=== PATIENT | male | born 1975 | race Caucasian/White ===

== ENCOUNTER 2016-10-11 23:52 | Emergency (ER) | payer OTHER ==
[~2016-10-11] VITALS: Ht 175.3 cm; Wt 113.4 kg
[~2016-10-11 23:52] MED LIST: ADVIN50050 INH; ALBUAER2 INH; AZEL0.15 NAE; BUPR-79 PO; FLNIN NAE; IPRASOL34 INH; LANS30CA12 PO; NORT10CA2 PO; NRN600 PO; PROM25TA PO; SALI0.6510 NAE; TIZA2CAP PO
[2016-10-12] VITALS: Ht 175.3 cm; Wt 113.4 kg
[2016-10-12] MEDS ORDERED: SODIUM CHLORIDE 0.9% 1000ML 1,000 ML IV STA ×2 (00:03→00:22)
[2016-10-12] MEDS ORDERED: OPTIRAY 320 IV PRN (00:15)
[2016-10-12 00:47] LABS: BASO % 0.1 %; BASO ABS # 0.02 K/uL (0-0.2); COMPLETE YES; EOS % 0.3 %; HEMATOCRIT 33.3 % (42-52); IG% 0.3 %; LYMPH ABS # 2.09 K/uL (1.2-3.4); MEAN CELL VOLUME 87.6 fL (80-100); MEAN CORPUSCULAR HEMOGLOBIN 31.8 pg (25-34); MEAN CORPUSCULAR HGB CONC 36.3 g/dl (32-36); MEAN PLATELET VOLUME 10.4 fL (7.4-10.4); MONO % 5.8 %; NEUT % 82.5 %; PLATELET COUNT 415 K/uL (130-400); WHITE BLOOD COUNT 19.03 K/uL (4.8-10.8)
[2016-10-12 00:51] LABS: VEN BLD GAS O2 SATURATION < 60.0 %; VEN BLOOD GAS BASE EXCESS 1.3 mmol/L; VENOUS BLOOD GAS PCO2 54 mmHg (38.0-50.0); VENOUS BLOOD GAS PO2 25 mmHg
[2016-10-12 00:54] LABS: ISTAT CREATININE 1.9 mg/dl (0.6-1.3); ISTAT HEMOGLOBIN 12.2 g/dl (14.0-18.0); ISTAT IONIZED CALCIUM 1.17 mmol/l (1.12-1.32)
[2016-10-12 00:57] LABS: INR 1.1 (0.9-1.1); PARTIAL THROMBOPLASTIN RATIO 0.9; PROTHROMBIN TIME (PATIENT) 11.4 SECONDS (9.0-12.0)
[2016-10-12 01:14] LABS: ALT/SGPT 19 U/L (12-78); AST/SGOT 10 U/L (15-37); BLOOD UREA NITROGEN 19 mg/dl (7-18); BUN/CREATININE RATIO 9.3 (10-20); CALCIUM 8.9 mg/dl (8.5-10.1); CARBON DIOXIDE 27 mmol/L (21-32); CHLORIDE 105 mmol/L (98-107); GLUCOSE 156 mg/dl (70-99); MAGNESIUM 2.5 mg/dl (1.8-2.4); POTASSIUM 3.9 mmol/L (3.5-5.1); SODIUM 144 mmol/L (136-145)
[2016-10-12] MEDS ORDERED: VANCOMYCIN INJ 2,000 MG in SODIUM CHLORIDE 0.9% 500ML 500 ML IV STA (01:15)
[2016-10-12 01:17] LABS: ALB/GLOB RATIO 1.3 (0.9-2); ALKALINE PHOSPHATASE 61 U/L (45-117); CKMB/CK RATIO 2.7 (0-3.0); PHOSPHORUS 2.9 mg/dl (2.5-4.9)
[2016-10-12] MEDS ORDERED: AZTREONAM IV 1,000 MG in DEXTROSE 5% 100ML 100 ML IV ONE (01:30)
[2016-10-12 01:35] LABS: URINE APPEARANCE CLOUDY (CLEAR); URINE BILIRUBIN NEG (NEG); URINE COLOR YELLOW; URINE EPITHELIAL CELL AUTO >30 /lpf (0-5); URINE NITRITE NEG (NEG); URINE SPECIFIC GRAVITY 1.018 (1.000-1.030); UROBILINOGEN NEG (NEG); ZZUR CULT IF INDIC CLEAN CATCH YES
--- NOTE | 2016-10-12 01:39 | EMERGENCY ROOM VISIT NOTE ---
ED Visit Note First contact with patient: 00:35 This Patient was discussed with the physician Shuttle Threader, Magnus De La Torre PA-C. The pertinent historical and physical exam findings were confirmed. I agree with the studies ordered and with the interpretations of these studies. I agree with the disposition and care plan. Femoral Central Venous Catheter Indication: Trauma and hypotension Catheter Type: Triple lumen Location: Right femoral vein Verbal consent was obtained after the risks and benefits were explained, including but not limited to intra-abdominal injury, vessel injury, bleeding, scarring, infection, pain, and bone/joint/nerve damage. At this time, the risks of the procedure are less than the risks of NOT performing the procedure. A time out was taken and the correct patient and site identified. The patient was placed in the supine position and the skin was prepped in the standard fashion with chlorhexidine and full sterile drapes applied. The proper landmarks were identified with ultrasound, anesthetized with 1% lidocaine without epinephrine, and the needle was inserted through the skin in the standard fashion. The needle was carefully advanced into blood vessel lumen with ultrasound guidance. The guidewire was placed uneventfully. The vessel is dilated and the catheter was placed. It was sutured into position. There was good blood return from all ports. The patient tolerated the procedure well and there were no complications. After I reviewed the CAT scan of the abdomen and pelvis are appears to be free fluid with heterogenicity around the spleen. For this reason I discussed his case with [facility] trauma [facility]ona. I discussed with Dr. Moseley he has agreed to accept the patient in transfer for appropriate trauma evaluation..
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
[2016-10-12 01:54] LABS: MANUAL MICROSCOPIC REQUIRED? NO; REVIEW REQ? YES
[2016-10-12 02:10] VITALS: BP 98/70; PULSE 85; PULSE 86; TEMP 36.5; O2SAT 100
[2016-10-12 02:15] VITALS: BP 110/67; PULSE 86; O2SAT 99
[2016-10-12 02:20] VITALS: BP 110/72; PULSE 78; O2SAT 99
[2016-10-12 02:27] LABS: BENZODIAZEPINE, URINE NEG (NEG); COCAINE,URINE NEG (NEG); PHENCYCLIDINE, URINE NEG (NEG)
[2016-10-12 02:45] VITALS: BP 111/69; PULSE 84; TEMP 36.5; O2SAT 100
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
[2016-10-12] MEDS ORDERED: TRANEXAMIC ACID INJ 1,000 MG in SODIUM CHLORIDE 0.9% 100ML 100 ML IV ONE (06:00)
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
[2016-10-15 11:31] LABS: COD UR NEGATIVE NG/ML (CUTOFF=50); HYDROCOD UR 163 NG/ML (CUTOFF=50); HYDROMOR UR NEGATIVE NG/ML (CUTOFF=50); MORPHINE UR NEGATIVE NG/ML (CUTOFF=50); NORHYDROCODONE CONF UR 417 NG/ML (CUTOFF=50); OXYMORPH UR NEGATIVE NG/ML (CUTOFF=50)
== END 2016-10-12 02:45 | disposition short-term general hospital (02) ==
LOC: EDBD 23:52 → C.EDC 23:53 → C.EDB 10-12 02:45
DX: S36.899A Unspecified injury of other intra-abdominal organs, initial encounter (principal); I95.9 Hypotension, unspecified; V89.2XXA Person injured in unspecified motor-vehicle accident, traffic, initial encounter; J45.909 Unspecified asthma, uncomplicated; K73.8 Other chronic hepatitis, not elsewhere classified; G89.29 Other chronic pain; K21.9 Gastro-esophageal reflux disease without esophagitis; F17.200 Nicotine dependence, unspecified, uncomplicated

== ENCOUNTER 2017-05-07 19:12 | Emergency (ER) | payer OTHER ==
[~2017-05-07] VITALS: Ht 175.3 cm; Wt 100.6 kg
[2017-05-07 19:15] VITALS: TEMP 36.7; Ht 175.3 cm; Wt 100.6 kg
[2017-05-07] MEDS ORDERED: NALOXONE HCL 0.4 MG/1 ML VIAL/CARP IV STA (19:50)
[2017-05-07] MEDS ORDERED: SODIUM CHLORIDE 0.9% 1000ML 1,000 ML IV STA (19:50)
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
[2017-05-07 20:31] LABS: ALT/SGPT 32 U/L (12-78); BLOOD UREA NITROGEN 18 mg/dl (7-18); BUN/CREATININE RATIO 20.9 (10-20); CALCIUM 8.8 mg/dl (8.5-10.1); CARBON DIOXIDE 28 mmol/L (21-32); CHLORIDE 104 mmol/L (98-107); CREATININE 0.85 mg/dl (0.60-1.40); GLUCOSE 93 mg/dl (70-99); MAGNESIUM 2.1 mg/dl (1.8-2.4); POTASSIUM 3.9 mmol/L (3.5-5.1); SODIUM 140 mmol/L (136-145)
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
[2017-05-07 20:34] LABS: ALKALINE PHOSPHATASE 80 U/L (45-117); AST/SGOT 36 U/L (15-37)
[2017-05-07 20:56] LABS: BENZODIAZEPINE, URINE NEG (NEG); COCAINE,URINE POS (NEG); PHENCYCLIDINE, URINE NEG (NEG)
[2017-05-07 21:17] LABS: URINE APPEARANCE CLEAR (CLEAR); URINE BILIRUBIN NEG (NEG); URINE COLOR YELLOW; URINE NITRITE NEG (NEG); URINE PH 5.5 (4.5-7.5); URINE SPECIFIC GRAVITY 1.014 (1.000-1.030); UROBILINOGEN NEG (NEG); ZZURINE CULT IF INDIC CATH NO
[2017-05-07 21:19] LABS: MANUAL MICROSCOPIC REQUIRED? NO; REVIEW REQ? NO
[2017-05-07 21:34] LABS: BASO % 0.2 %; BASO ABS # 0.03 K/uL (0-0.2); COMPLETE YES; EOS % 1.6 %; HEMATOCRIT 33.2 % (42-52); IG% 0.3 %; LYMPH % 16.4 %; LYMPH ABS # 2.15 K/uL (1.2-3.4); MEAN CORPUSCULAR HEMOGLOBIN 28.8 pg (25-34); MEAN CORPUSCULAR HGB CONC 31.6 g/dl (32-36); MONO % 8.9 %; NEUT % 72.6 %; RED BLOOD COUNT 3.65 M/uL (4.7-6.1); WHITE BLOOD COUNT 13.09 K/uL (4.8-10.8)
[2017-05-08 00:50] VITALS: BP 141/92; PULSE 99; O2SAT 94
[2017-05-13 11:04] LABS: COCAINE, URINE 8360 NG/ML (CUTOFF=100)
== END 2017-05-08 00:50 | disposition home or self-care (01) ==
LOC: EDBD 19:12 → C.EDB 19:14
DX: T40.1X1A Poisoning by heroin, accidental (unintentional), initial encounter (principal); F19.99 Other psychoactive substance use, unspecified with unspecified psychoactive substance-induced disorder; J45.909 Unspecified asthma, uncomplicated; K74.60 Unspecified cirrhosis of liver; M79.7 Fibromyalgia; Q85.02 Neurofibromatosis, type 2; D86.0 Sarcoidosis of lung; M62.82 Rhabdomyolysis; F17.200 Nicotine dependence, unspecified, uncomplicated; F11.20 Opioid dependence, uncomplicated

== ENCOUNTER 2020-05-21 13:37 | Observation (INO) ==
[2020-05-21] MEDS ORDERED: MoRPHine SULFATE 4 MG/ML 1 ML CARP\\VIAL IV PRN (14:04)
[2020-05-21] MEDS ORDERED: ONDANSETRON INJ 2 MG/ML 2 ML VIAL IV STA (14:04)
--- NOTE | 2020-05-21 14:07 | Emergency Department Note ---
Impression & Plan Left-sided chest pain, SOB (shortness of breath), Left rib fracture, Fall ED Provider Note NAME: FLORENCIO LAUREN AGE: 45 SEX: M : 1975 ARRIVES VIA: Walk-In INFORMANT: [Patient] ED PROVIDER(S): [Dante Ordonez MD] CHIEF COMPLAINT: The patient is a 45-year-old male who states that 1 week ago, he tripped over a child's toy and fell onto his chest. He is not sure how but, something injured the left chest. He thinks he may have fallen onto something. Patient has had pain in the left chest ever since. The pain is a 6 or 7 out of 10. The pain is present with deep breathing or moving. He feels short of breath because of the pain. The pain is sharp in nature and does radiate a bit to the left shoulder. There is no headache. There was no loss of consciousness. He did not injure his neck, back, abdomen or extremities. The patient went to [facility] today and was referred to the ED because of this injury. HISTORY OF PRESENT ILLNESS: REVIEW OF SYSTEMS: See HPI for pertinent positives and negatives. A total of ten systems were reviewed and were otherwise negative. PMHx/PSHx: See Below SOCIAL HISTORY: See Below. PHYSICAL EXAM: GENERAL: Patient is in no acute distress. HEENT: No acute trauma, normocephalic atraumatic, mucous membranes moist, no nasal congestion, no scleral icterus. NECK: No stridor, no adenopathy, no meningismus, trachea is midline. LUNGS: Clear to auscultation bilaterally, no wheeze, no rhonchi, breath sounds equal. HEART: Mildly tachycardic, regular rhythm, no murmurs. Chest: Tender to the left superior chest wall, no contusion. Pain worsens with movement and breathing. ABDOMEN: Soft, nontender, bowel sounds positive, he does have a right-sided ventral abdominal wall hernia which is nontender, no peritonitis. EXTREMITIES: No cyanosis or edema, full range of motion of all the joints without pain or difficulty, no signs for acute trauma. NEUROLOGIC: Oriented x 3, no acute motor or sensory deficits, no focal weakness. SKIN: No rash, no jaundice, no diaphoresis. DIFFERENTIAL DIAGNOSIS: Fracture, dislocation, contusion, intra-abdominal, pneumothorax, intrathoracic, intracranial, neurologic, compartment syndrome, rhabdomyolysis, as well as other pathologies. EMERGENCY DEPARTMENT COURSE/PROCEDURES: ECG: Indication was chest pain. The ECG shows a normal sinus rhythm with a rate of 99. There is no ST elevation, no PVCs. The QTc is 433. Continuous Cardiac Monitoring: An order was placed for continuous cardiac monitoring. The monitor shows a rate of 95 with normal sinus rhythm. MEDICAL DECISION MAKING: There is no leukocytosis or concerning anemia. Platelet count was slightly high at 602. No kidney failure. ECG showed a sinus rhythm, no acute ischemia. Cardiac enzyme testing x1 is not consistent with acute cardiac injury. Chest CT shows 5 rib fractures on the left. There was no pneumothorax or pulmonary contusion identified. On my exam, only the left chest wall seemed to be injured. I found no evidence for injury to the abdomen, neck, head, extremities. The patient received IV Zofran, IV morphine. He is still having pain. The patient has 5 rib fractures. These are nondisplaced and there is no pulmonary injury. Given his discomfort, given the number of fractures, I do think a hospital stay for pain control is warranted. I spoke to the patient and case management. The on-call hospitalist was consulted. Past Med/Surg History Medical History Neurofibromatosis, type 2 (Unknown) Superficial vein thrombosis Social History Smoking Status: Current some day smoker Do You Dip or Chew Tobacco: No; Hx Alcohol Use: No Hx Substance Use: No Preferred Language: German Communication Ability: Effective Beliefs That Will Affect Care: None Current Living Situation: Parent Current Living Situation Comment: lives at home with parents Feels Safe at Home: Yes Safety Concerns: Feels Safe At This Time Assistive Devices: None Allergies Allergies Allergy/AdvReac Type Severity Reaction Status Date / Time diltiazem Allergy Severe HIVES Verified 05/21/20 16:18 Penicillins Allergy Mild . Verified 05/21/20 16:18 carvedilol AdvReac Unknown TOLD NOT Verified 05/21/20 16:18 TO TAKE Home Meds Home Medications Medication Instructions Recorded Confirmed aspirin 81 mg PO DAILY 03/20/20 05/21/20 ibuprofen 600 mg PO Q6H PRN 03/20/20 05/21/20 lisinopril 30 mg PO DAILY 03/20/20 05/21/20 nortriptyline 50 mg PO BID 03/20/20 05/21/20 clonidine HCl 0.1 mg PO BID 05/21/20 05/21/20 furosemide 20 mg PO DAILY PRN 05/21/20 05/21/20 gabapentin See Rx Instructions .ROUTE .COMPLEX 05/21/20 05/21/20 lansoprazole 30 mg PO QAM 05/21/20 05/21/20 sumatriptan succinate 50 mg PO DIRECTED PRN 05/21/20 05/21/20 topiramate [Topamax] 50 mg PO BID 05/21/20 05/21/20 Results & Data (ED) Vital Signs Vital Signs - 24 hr 05/21/20 13:42 05/21/20 14:26 05/21/20 14:29 Temperature 36.8 C Temperature Source Oral Pulse Rate 116 H 97 H 95 H Pulse Rate from SpO2 Sensor 96 H 95 H Respiratory Rate 24 19 17 Respiratory Effort / Characteristics Short of Breath Respiratory Depth Normal Blood Pressure 128/86 130/74 Blood Pressure Mean 100 84 Pulse Oximetry 98 99 100 Oxygen Delivery Method Room Air Sepsis Recent Fever Within 48 Hours No Sepsis New/Unexplained Change in Mental Status N/A Sepsis Action Taken by Nursing No Action Required 05/21/20 14:30 05/21/20 14:31 05/21/20 15:00 Temperature Temperature Source Pulse Rate 95 H 104 H 95 H Pulse Rate from SpO2 Sensor 97 H Respiratory Rate 16 16 15 Respiratory Effort / Characteristics Respiratory Depth Blood Pressure 125/88 Blood Pressure Mean 99 Pulse Oximetry 96 Oxygen Delivery Method Sepsis Recent Fever Within 48 Hours Sepsis New/Unexplained Change in Mental Status Sepsis Action Taken by Nursing 05/21/20 15:08 05/21/20 15:30 05/21/20 15:31 Temperature Temperature Source Pulse Rate 95 H 87 89 Pulse Rate from SpO2 Sensor 96 H 85 90 Respiratory Rate 19 15 13 Respiratory Effort / Characteristics Respiratory Depth Blood Pressure 120/79 108/77 Blood Pressure Mean 88 82 Pulse Oximetry 98 96 95 Oxygen Delivery Method Sepsis Recent Fever Within 48 Hours Sepsis New/Unexplained Change in Mental Status Sepsis Action Taken by Nursing 05/21/20 16:00 05/21/20 16:01 05/21/20 16:38 Temperature Temperature Source Pulse Rate 90 86 93 H Pulse Rate from SpO2 Sensor 90 86 93 H Respiratory Rate 14 18 17 Respiratory Effort / Characteristics Respiratory Depth Blood Pressure 120/67 127/85 Blood Pressure Mean 76 103 Pulse Oximetry 95 95 98 Oxygen Delivery Method Sepsis Recent Fever Within 48 Hours Sepsis New/Unexplained Change in Mental Status Sepsis Action Taken by Nursing 05/21/20 17:00 05/21/20 17:01 05/21/20 17:30 Temperature Temperature Source Pulse Rate 89 90 90 Pulse Rate from SpO2 Sensor 88 89 90 Respiratory Rate 14 14 13 Respiratory Effort / Characteristics Respiratory Depth Blood Pressure 108/75 121/85 Blood Pressure Mean 85 97 Pulse Oximetry 98 98 97 Oxygen Delivery Method Sepsis Recent Fever Within 48 Hours Sepsis New/Unexplained Change in Mental Status Sepsis Action Taken by Nursing 05/21/20 17:31 Temperature Temperature Source Pulse Rate 91 H Pulse Rate from SpO2 Sensor 91 H Respiratory Rate 14 Respiratory Effort / Characteristics Respiratory Depth Blood Pressure Blood Pressure Mean Pulse Oximetry 97 Oxygen Delivery Method Sepsis Recent Fever Within 48 Hours Sepsis New/Unexplained Change in Mental Status Sepsis Action Taken by Jail Medications Current Medication List: was personally reviewed by me Laboratory Data Attestation: I reviewed the patient's lab results. Result diagrams: 05/22/20 06:36 05/22/20 06:36 Lab Results 05/21/20 05/21/20 Range/Units 14:45 14:45 WBC 10.08 (4.8-10.8) K/uL RBC 4.75 (4.7-6.1) M/uL Hgb 15.3 (14.0-18.0) g/dL Hct 45.7 (42-52) % MCV 96.2 (80-100) fL MCH 32.2 (25-34) pg MCHC 33.5 (32-36) g/dL RDW Std Deviation 45.9 (36.4-46.3) fL RDW Coeff of Nicolas 13.1 (11.5-14.5) % Plt Count 602 H (130-400) K/uL MPV 9.8 (7.4-10.4) fL Sodium 139 (136-145) mmol/L Potassium 4.6 (3.5-5.1) mmol/L Chloride 106 (98-107) mmol/L Carbon Dioxide 30 (21-32) mmol/L Anion Gap 3.0 (3-11) BUN 22 H (7-18) mg/dl Creatinine 1.13 (0.6-1.4) mg/dl Est Cr Clr Drug Dosing 101.8 ml/min Est GFR ( Amer) 91.8 Est GFR (Non-Af Amer) 79.2 BUN/Creatinine Ratio 19.1 (10-20) Glucose 88 (70-99) mg/dl Calcium 9.4 (8.5-10.1) mg/dl Troponin I < 0.015 (0-0.045) ng/ml Administered Medications Acetaminophen (Acetaminophen 325 Mg Tab) 325 mg PO NOW PRN PRN Reason: Pain or Fever Stop: 06/20/20 17:54 Last Admin: 05/22/20 19:52 Dose: 325 mg Documented by: [id number] Admin: 05/22/20 12:54 Dose: 325 mg Documented by: [id number] Admin: 05/22/20 08:29 Dose: 325 mg Documented by: [id number] Clonidine HCl (Clonidine Hcl 0.1 Mg Tab) 0.1 mg PO BID SHIRLEY Stop: 06/20/20 20:59 Last Admin: 05/22/20 19:53 Dose: 0.1 mg Documented by: [id number] Admin: 05/22/20 08:32 Dose: 0.1 mg Documented by: [id number] Admin: 05/21/20 20:55 Dose: 0.1 mg Documented by: [id number] Docusate Sodium (Docusate Sodium 100 Mg Cap) 100 mg PO BID SHIRLEY Stop: 06/20/20 20:59 Last Admin: 05/22/20 19:53 Dose: 100 mg Documented by: [id number] Admin: 05/22/20 08:32 Dose: 100 mg Documented by: [id number] Admin: 05/21/20 20:55 Dose: 100 mg Documented by: [id number] Enoxaparin Sodium (Enoxaparin Inj 120 Mg/0.8 Ml Syr) 111 mg SQ Q12H SHIRLEY Stop: 06/20/20 19:59 Last Admin: 05/22/20 19:53 Dose: 111 mg Documented by: [id number] Admin: 05/22/20 08:33 Dose: 111 mg Documented by: [id number] Admin: 05/21/20 20:54 Dose: 111 mg Documented by: [id number] Gabapentin (Gabapentin 600 Mg Tab) 1,200 mg PO HS SHIRELY Stop: 06/20/20 20:59 Last Admin: 05/22/20 19:55 Dose: 1,200 mg Documented by: [id number] Admin: 05/21/20 20:56 Dose: 1,200 mg Documented by: [id number] Gabapentin (Gabapentin 300 Mg Cap) 900 mg PO DAILY@0900,1400 [facility] Stop: 06/21/20 08:59 Last Admin: 05/22/20 12:55 Dose: 900 mg Documented by: [id number] Admin: 05/22/20 08:30 Dose: 900 mg Documented by: [id number] Lisinopril (Lisinopril 10 Mg Tab) 30 mg PO DAILY [facility] Stop: 06/21/20 08:59 Last Admin: 05/22/20 08:31 Dose: 30 mg Documented by: [id number] Nortriptyline HCl (Nortriptyline Hcl 25 Mg Cap) 50 mg PO BID [facility] Stop: 06/20/20 20:59 Last Admin: 05/22/20 19:54 Dose: 50 mg Documented by: [id number] Admin: 05/22/20 08:32 Dose: 50 mg Documented by: [id number] Admin: 05/21/20 20:56 Dose: 50 mg Documented by: [id number] Oxycodone HCl (Oxycodone Hcl Ir 5 Mg Tab (Immediate Release)) 5 mg PO Q6H PRN PRN Reason: Moderate Pain Stop: 06/04/20 17:54 Last Admin: 05/22/20 19:52 Dose: 5 mg Documented by: [id number] Admin: 05/22/20 11:32 Dose: 5 mg Documented by: [id number] Admin: 05/22/20 04:59 Dose: 5 mg Documented by: [id number] Admin: 05/21/20 20:57 Dose: 5 mg Documented by: [id number] Pantoprazole Sodium (Pantoprazole 40 Mg Tab) 40 mg PO DAILY [facility] Stop: 06/21/20 08:59 Last Admin: 05/22/20 08:30 Dose: 40 mg Documented by: [id number] Sennosides (Senna 8.6 Mg Tab) 8.6 mg PO QAM [facility] Stop: 06/20/20 18:14 Last Admin: 05/22/20 08:33 Dose: 8.6 mg Documented by: [id number] Admin: 05/21/20 20:54 Dose: 8.6 mg Documented by: [id number] Topiramate (Topiramate 50 Mg Tab) 50 mg PO BID SHIRLEY Stop: 06/20/20 20:59 Last Admin: 05/22/20 19:54 Dose: 50 mg Documented by: [id number] Admin: 05/22/20 08:30 Dose: 50 mg Documented by: [id number] Admin: 05/21/20 20:57 Dose: 50 mg Documented by: [id number] Discontinued Medications Ioversol (Ioversol 100ml) 94 ml IV ONCE ONE Stop: 05/21/20 16:40 Last Admin: 05/21/20 16:39 Dose: 94 ml Documented by: [id number] Morphine Sulfate (Morphine Sulfate 4 Mg/Ml 1 Ml Carp\Vial) 4 mg IV Q20M PRN PRN Reason: Pain Stop: 06/04/20 14:03 Last Admin: 05/21/20 15:08 Dose: 4 mg Documented by: [id number] Ondansetron HCl (Ondansetron Inj 2 Mg/Ml 2 Ml Vial) 4 mg IV NOW STA Stop: 05/21/20 14:05 Last Admin: 05/21/20 15:08 Dose: 4 mg Documented by: [id number] Imaging Data Radiologist's Impression: CT OF THE CHEST WITH IV CONTRAST CLINICAL HISTORY: Left-sided chest pain status post trauma COMPARISON STUDY: September 2016 TECHNIQUE: Following the IV administration of 94 mL of Optiray-320, CT of the thorax was performed from the thoracic inlet to the lung bases. Images are reviewed in the axial, sagittal, and coronal planes. IV contrast was administered without complication. A dose lowering technique was utilized adhering to the principles of ALARA. CT DOSE: 907.83 mGy.cm FINDINGS: Thyroid: Imaged portions of the thyroid gland are normal in appearance. Thoracic aorta: The thoracic aorta is normal in course and caliber, noting standard 3-vessel arch anatomy. No aneurysm or dissection is seen. Pulmonary vasculature: The pulmonary trunk is normal in caliber. There are no central filling defects identified to suggest pulmonary embolus. Note that this examination was not protocoled for the evaluation of pulmonary emboli. HEART: The heart is normal in size and configuration, without pericardial eff usion. Lungs and pleural spaces: There are trace bilateral pleural effusions. There are bilateral dependent airspace opacities, likely atelectatic. Mediastinum: There is no evidence of pathologic mediastinal lymphadenopathy. There is no evidence of mediastinal hematoma. Sadie: There is no evidence of pathologic hilar adenopathy. Axilla: There is no evidence of pathologic axillary lymphadenopathy. 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 There is possible mild hepatomegaly. Skeletal structures: There are acute nondisplaced fractures of the left second through sixth ribs anteriorly. There are old left posterior rib fractures. There is minor loss in height of several midthoracic vertebral bodies. This is felt to be chronic. IMPRESSION: 1. Acute nondisplaced fractures of the left second through sixth ribs anteriorly. 2. Trace bilateral pleural effusions with bibasilar opacities likely atelectatic 3. No evidence of pneumothorax. No evidence of pulmonary contusion 4. Surgically absent spleen Blood Pressure Blood Pressure Findings: Normal blood pressure Head Trauma GCS Score: 15 Discharge Plan Visit Data Chief Complaint: Chest/Rib Injury Stated Complaint: FALL HURT CHEST AND LUNGS, SENT BY DR BOYD Provider: Dante Ordonez Discharge Problem: Left-sided chest pain, SOB (shortness of breath), Left rib fracture, Fall Patient Disposition: Admitted As Inpatient Condition: Good Discharge Instructions Interventions: ED Discharge Assessment Last Done: 05/21/20 18:27 Discharge Problem: Left rib fracture Qualifiers: Encounter type: initial encounter Rib fracture type: multiple ribs Fracture type: closed Qualified Code(s): S22.42XA - Multiple fractures of ribs, left side, initial encounter for closed fracture Fall Qualifiers: Encounter type: initial encounter Qualified Code(s): W19.XXXA - Unspecified fall, initial encounter
[2020-05-21 14:55] LABS: Hematocrit (blood only) 45.7 % (42-52); Hemoglobin 15.3 g/dL (14.0-18.0); Mean Corpuscular Hemoglobin 32.2 pg (25-34); Mean Corpuscular Hgb Conc 33.5 g/dL (32-36); Mean Corpuscular Volume 96.2 fL (80-100); Mean Platelet Volume 9.8 fL (7.4-10.4); Platelet Count 602 K/uL (130-400); RDW Coefficient of Variation 13.1 % (11.5-14.5); RDW Standard Deviation 45.9 fL (36.4-46.3); Red Blood Count 4.75 M/uL (4.7-6.1); White Blood Count 10.08 K/uL (4.8-10.8)
[2020-05-21 15:11] LABS: BUN Creatinine Ratio 19.1 (10-20); Blood Urea Nitrogen 22 mg/dl (7-18); Calcium 9.4 mg/dl (8.5-10.1); Carbon Dioxide 30 mmol/L (21-32); Chloride 106 mmol/L (98-107); Creatinine Clr Calc Pharmacy 101.8 ml/min; Est GFR (African American) 91.8; Est GFR (Non-African American) 79.2; Glucose 88 mg/dl (70-99); Potassium 4.6 mmol/L (3.5-5.1); Sodium 139 mmol/L (136-145)
[2020-05-21 15:16] LABS: Troponin I < 0.015 ng/ml (0-0.045)
[2020-05-21] MEDS ORDERED: IOVERSOL 100ml IV ONE (16:39)
--- NOTE | 2020-05-21 16:48 | CT Scan Report ---
CT OF THE CHEST WITH IV CONTRAST CLINICAL HISTORY: Left-sided chest pain status post trauma COMPARISON STUDY: September 2016 TECHNIQUE: Following the IV administration of 94 mL of Optiray-320, CT of the thorax was performed f rom the thoracic inlet to the lung bases. Images are reviewed in the axial, sagittal, and coronal danny fletcher. IV contrast was administered without complication. A dose lowering technique was utilized adher ing to the principles of ALARA. CT DOSE: 907.83 mGy.cm FINDINGS: Thyroid: Imaged portions of the thyroid gland are normal in appearance. Thoracic aorta: The thoracic aorta is normal in course and caliber, noting standard 3-vessel arch bryant nohemi. No aneurysm or dissection is seen. Pulmonary vasculature: The pulmonary trunk is normal in caliber. There are no central filling defects identified to suggest pulmonary embolus. Note that this examination was not protocoled for the evalu ation of pulmonary emboli. HEART: The heart is normal in size and configuration, without pericardial effusion. Lungs and pleural spaces: There are trace bilateral pleural effusions. There are bilateral dependent airspace opacities, likely atelectatic. Mediastinum: There is no evidence of pathologic mediastinal lymphadenopathy. There is no evidence of mediastinal hematoma. Sadie: There is no evidence of pathologic hilar adenopathy. Axilla: There is no evidence of pathologic axillary lymphadenopathy. 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 There is possible mild hepato megaly. Skeletal structures: There are acute nondisplaced fractures of the left second through sixth ribs ant eriorly. There are old left posterior rib fractures. There is minor loss in height of several midthor acic vertebral bodies. This is felt to be chronic. IMPRESSION: 1. Acute nondisplaced fractures of the left second through sixth ribs anteriorly. 2. Trace bilateral pleural effusions with bibasilar opacities likely atelectatic 3. No evidence of pneumothorax. No evidence of pulmonary contusion 4. Surgically absent spleen ACT 112: Negative or not required by law. Electronically signed by: Alexander Conde M.D. 05/21/2020 4:46 PM
--- NOTE | 2020-05-21 17:11 | Electrocardiogram Report ---
Test Reason : Blood Pressure : / mmHG Vent. Rate : 099 BPM Atrial Rate : 099 BPM P-R Int : 166 ms QRS Dur : 086 ms QT Int : 338 ms P-R-T Axes : 047 -01 027 degrees QTc Int : 433 ms Normal sinus rhythm Normal ECG When compared with ECG of 20-MAR-2020 18:49, No significant change was found Confirmed by Conrad Noriega ([id number]) on 05/21/2020 5:11:10 PM Referred By: Amauri Fox Confirmed By:Jose L Noriega
[2020-05-21] MEDS ORDERED: HYDROmorphone INJ 0.5 MG/0.5 ML SYR IV PRN (17:55)
--- NOTE | 2020-05-21 17:55 | History & Physical Report ---
Date of Service May 21, 2020 Assessment & Plan (1) Ribs, multiple fractures: -This is a 45 year old male who 1 week ago slipped on a toy object and fell on his left side which landed on another toy. Since that time patient, has been having left upper rib pain but he reports that initial CXR evaluation did not show anything remarkable. Patient has been taking over the counter Ibuprofen pain medication with minimal relief. Because he had upcoming surgical evaluation with general surgery Dr. Jackson for repair of abdominal hernia, patient was concerned as to why patricia mccracken continued to have left sided pain and he reports that his primary care doctor told him to come to the hospital for further evaluation. -In the ED, patient was found to have on CT chest scan : Acute nondisplaced fractures of the left second through sixth ribs anteriorly. No evidence of pneumothorax. No evidence of pulmonary contusion -patient saturating well on room air -prn analgesics, incentive spirometer, supplementary oxygen as needed, prn analgesics or acetaminophen, oxycodone, diluadid based on degree of pain severity (2) History of DVT of lower extremity: -03/23/2020 ultrasound of left leg with "Superficial thrombus within the left greater saphenous vein that extends from the level of the mid thigh to the popliteal fossa (thrombus extends for at least 10 cm in length)." patient reports he has since that time was on Xarelto for 45 days and recently completed the Xarelto several days ago prior to presenting to the ED on 05/21/2020 -Social history of being in group home in the past as per PCP Dr. Amauri Fox's recent outpatient notes in 04/19/2020 which also commented that previously seen in 12/31/2015. Dr. Fox's note acknowledge that patient was discharged from ED in March 2020 in regards for the DVT but did not comment on the length of time that patient should be on systemic anticoagulation in total -Ultrasound on 05/21/2020 shows "No sonographic evidence of right or left lower extremity deep venous thrombosis. Long segment superficial venous thrombosis of the left greater saphenous vein redemonstrated." -given the length of the clot, it would appear that patient may need more than 45 days of systemic anticoagulation. Will at this time give Lovenox 1 mg/kg q12 hours. Hospitalist team will need to re-address this issue whether patient should continue oral anticoagulants nursing home (3) Neurofibromatosis, type 2: -as confirmed by outpatient medical records -with history of neck surgeries in the past -PT/OT evaluations (4) Hypertension: -continue lisinopril 30 mg daily. 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 Jackson with general surgery as outpatient Full Code My colleague Dr. Espinoza will be following the patient as hospitalist starting on 05/22/2020 History of Present Illness -This is a 45 year old male who 1 week ago slipped on a toy object and fell on his left side which landed on another toy. Since that time patient, has been having left upper rib pain but he reports that initial CXR evaluation did not show anything remarkable. Patient has been taking over the counter Ibuprofen pain medication with minimal relief. Because he had upcoming surgical evaluation with general surgery Dr. Jackson for repair of abdominal hernia, patient was concerned as to why h kaykay continued to have left sided pain and he reports that his primary care doctor told him to come to the hospital for further evaluation. -In the ED, patient was found to have on CT chest scan : Acute nondisplaced fractures of the left second through sixth ribs anteriorly. No evidence of pneumothorax. No evidence of pulmonary contusion -patient saturating well on room air -03/23/2020 ultrasound of left leg with "Superficial thrombus within the left greater saphenous vein that extends from the level of the mid thigh to the popliteal fossa (thrombus extends for at least 10 cm in length)." patient reports he has since that time was on Xarelto for 45 days and recently completed the Xarelto several days ago prior to presenting to the ED on 05/21/2020 -Social history of being in group home in the past as per PCP Dr. Amauri Fox's recent outpatient notes in 04/19/2020 which also commented that previously seen in 12/31/2015. Dr. Fox's note acknowledge that patient was discharged from ED in March 2020 in regards for the DVT but did not comment on the length of time that patient should be on systemic anticoagulation in total -Ultrasound on 05/21/2020 shows "No sonographic evidence of right or left lower extremity deep venous thrombosis. Long segment superficial venous thrombosis of the left greater saphenous vein redemonstrated." On review of systems, patient denies acute headache, dizziness, lightheadedness, shortness of breath, chest pain, nausea, vomiting. 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 and history of neck surgeries in the past but denies problems with ambulation Family History of Diabetes mellitus Allergies: Patient reports hives to penicillin diltiazem, carvedilol Primary Care Provider: Amauri Fox MD Allergies Allergy/AdvReac Type Severity Reaction Status Date / Time diltiazem Allergy Severe HIVES Verified 05/21/20 16:18 Penicillins Allergy Mild . Verified 05/21/20 16:18 carvedilol AdvReac Unknown TOLD NOT Verified 05/21/20 16:18 TO TAKE Home Medications Home Medications Medication Instructions Recorded Confirmed Type aspirin 81 mg PO DAILY 03/20/20 05/21/20 History ibuprofen 600 mg PO Q6H PRN 03/20/20 05/21/20 History lisinopril 30 mg PO DAILY 03/20/20 05/21/20 History nortriptyline 50 mg PO BID 03/20/20 05/21/20 History clonidine HCl 0.1 mg PO BID 05/21/20 05/21/20 History furosemide 20 mg PO DAILY PRN 05/21/20 05/21/20 History gabapentin See Rx Instructions .ROUTE .COMPLEX 05/21/20 05/21/20 History lansoprazole 30 mg PO QAM 05/21/20 05/21/20 History sumatriptan succinate 50 mg PO DIRECTED PRN 05/21/20 05/21/20 History topiramate [Topamax] 50 mg PO BID 05/21/20 05/21/20 History Past Med/Surg History Medical History (Updated 05/21/20 @ 19:48 by Mart Alvarenga MD) Neurofibromatosis, type 2 (Unknown) Superficial vein thrombosis Social History Smoking Status: Current every day smoker Preferred Language: Kyrgyz Feels Safe at Home: Yes Review of Systems Review of Systems: All systems reviewed & are unremarkable except as noted in Subjective Physical Exam Constitutional: cooperative Eyes: PERRL, conjunctivae normal, anicteric sclerae EOM intact bilaterally ENMT: external ear and nose normal, oropharynx normal Neck: normal visual inspection Respiratory: normal respiratory effort, lungs clear to auscultation Cardiovascular: Rate/Rhythm: regular rate Gastrointestinal (Abdomen): Inspection/Auscultation: normal bowel sounds Percussion/Palpation: abdomen soft and + hernia Musculoskeletal: Head/Neck/Chest: normocephalic Neurologic: PERRL, EOMI, accommodation nl, no face palsy, no dysarthria moves all extremities Psychiatric: A+Ox3, euthymic affect Results & Data Results & Data ([facility]) Vital Signs (Past 12 Hours) Vital Signs Temp Pulse Resp BP Pulse Ox 05/21/20 17:31 91 H 14 97 05/21/20 17:30 90 13 121/85 97 05/21/20 17:01 90 14 98 05/21/20 17:00 89 14 108/75 98 05/21/20 16:38 93 H 17 127/85 98 05/21/20 16:01 86 18 95 05/21/20 16:00 90 14 120/67 95 05/21/20 15:31 89 13 95 05/21/20 15:30 87 15 108/77 96 05/21/20 15:08 95 H 19 120/79 98 05/21/20 15:00 95 H 15 05/21/20 14:31 104 H 16 05/21/20 14:30 95 H 16 125/88 96 05/21/20 14:29 95 H 17 100 05/21/20 14:26 97 H 19 130/74 99 05/21/20 13:42 36.8 C 116 H 24 128/86 98
[2020-05-21] MEDS ORDERED: ONDANSETRON INJ 2 MG/ML 2 ML VIAL IV PRN (17:58)
[2020-05-21] MEDS ORDERED: POLYETHYLENE (MIRALAX) 17 GM PACK PO PRN (18:04)
[2020-05-21] MEDS ORDERED: GABAPENTIN 300 MG CAP PO SCH (18:15)
--- NOTE | 2020-05-21 19:02 | Ultrasound Report ---
BILATERAL LOWER EXTREMITY VENOUS DOPPLER HISTORY: Acute pain and swelling of the bilateral lower extremities. History of superficial venous th rombus of the left greater saphenous vein. history of Superficial thrombus left greater saph COMPARISON STUDY: Duplex venous Doppler study 03/23/2020 FINDINGS: There is normal compressibility, flow, and augmentation within the bilateral lower extremit y deep venous systems. Occlusive superficial venous thrombus again noted within the greater saphenous vein within the left distal thigh extending for a length of approximately 9 cm, generally unchanged from comparison. IMPRESSION: 1. No sonographic evidence of right or left lower extremity deep venous thrombosis. 2. Long segment superficial venous thrombosis of the left greater saphenous vein redemonstrated. ACT 112: Positive. There are findings on this exam that require communication between the performing entity and the patient following Patient Test Result Information Act ([place] Act 112) guidelines. Electronically signed by: Bob Garsia M.D. 05/21/2020 7:00 PM
[2020-05-21] MEDS: ENOXAPARIN INJ 120 MG/0.8 ML SYR SQ SCH (20:54)
[2020-05-21] MEDS: SENNA 8.6 MG TAB PO SCH (20:54)
[2020-05-21] MEDS: DOCUSATE SODIUM 100 MG CAP PO SCH (20:55)
[2020-05-21] MEDS: cloNIDine HCL 0.1 MG TAB PO SCH (20:55)
[2020-05-21] MEDS: GABAPENTIN 600 MG TAB PO SCH (20:56)
[2020-05-21] MEDS: NORTRIPTYLINE HCL 25 MG CAP PO SCH (20:56)
[2020-05-21] MEDS: OXYCODONE HCL IR 5 MG TAB (IMMEDIATE RELEASE) PO PRN (20:57)
[2020-05-21] MEDS: TOPIRAMATE 50 MG TAB PO SCH (20:57)
[2020-05-21] MEDS ORDERED: ENOXAPARIN INJ 40 MG/0.4 ML SYR SQ SCH (21:00)
[2020-05-22] MEDS: OXYCODONE HCL IR 5 MG TAB (IMMEDIATE RELEASE) PO PRN ×3 (04:59→19:52)
[2020-05-22 06:55] LABS: Basophils # (auto) 0.03 K/uL (0-0.2); Basophils % (auto) 0.3 %; Eosinophils % (auto) 10.5 %; Hematocrit (blood only) 43.8 % (42-52); Hemoglobin 14.4 g/dL (14.0-18.0); Immature Granulocytes # (auto) 0.01 K/uL (0.00-0.02); Immature Granulocytes % (auto) 0.1 %; Lymphocytes # (auto) 4.55 K/uL (1.2-3.4); Lymphocytes % (auto) 47.7 %; Mean Corpuscular Hemoglobin 31.4 pg (25-34); Mean Corpuscular Hgb Conc 32.9 g/dL (32-36); Mean Corpuscular Volume 95.4 fL (80-100); Mean Platelet Volume 9.6 fL (7.4-10.4); Monocytes # (auto) 0.69 K/uL (0.11-0.59); Monocytes % (auto) 7.2 %; Neutrophils # (auto) 3.25 K/uL (1.4-6.5); Neutrophils % (auto) 34.2 %; Platelet Count 552 K/uL (130-400); RDW Coefficient of Variation 13.2 % (11.5-14.5); RDW Standard Deviation 46.1 fL (36.4-46.3); Red Blood Count 4.59 M/uL (4.7-6.1); White Blood Count 9.53 K/uL (4.8-10.8)
[2020-05-22 07:11] LABS: Partial Thromboplastin Time 28.3 Seconds (21.0-31.0); Prothrombin Time 10.8 Seconds (9.0-12.0)
[2020-05-22 07:29] LABS: Albumin Level 2.9 gm/dl (3.4-5.0); BUN Creatinine Ratio 19.2 (10-20); Calcium 8.9 mg/dl (8.5-10.1); Creatinine Clr Calc Pharmacy 101.8 ml/min; Est GFR (African American) 89.8; Est GFR (Non-African American) 77.5; Potassium 4.2 mmol/L (3.5-5.1)
[2020-05-22 07:32] LABS: Albumin Globulin Ratio 0.7 (0.9-2); Bilirubin,Total 0.4 mg/dl (0.2-1); Globulin 4.4 gm/dl (2.5-4.0); Total Protein 7.3 gm/dl (6.4-8.2)
[2020-05-22] MEDS: ACETAMINOPHEN 325 MG TAB PO PRN ×3 (08:29→19:52)
[2020-05-22] MEDS: GABAPENTIN 300 MG CAP PO SCH ×2 (08:30→12:55)
[2020-05-22] MEDS: TOPIRAMATE 50 MG TAB PO SCH ×2 (08:30→19:54)
[2020-05-22] MEDS: PANTOprazole 40 MG TAB PO SCH (08:30)
[2020-05-22] MEDS: lisinopriL 10 MG TAB PO SCH (08:31)
[2020-05-22] MEDS: NORTRIPTYLINE HCL 25 MG CAP PO SCH ×2 (08:32→19:54)
[2020-05-22] MEDS: cloNIDine HCL 0.1 MG TAB PO SCH ×2 (08:32→19:53)
[2020-05-22] MEDS: DOCUSATE SODIUM 100 MG CAP PO SCH ×2 (08:32→19:53)
[2020-05-22] MEDS: ENOXAPARIN INJ 120 MG/0.8 ML SYR SQ SCH ×2 (08:33→19:53)
[2020-05-22] MEDS: SENNA 8.6 MG TAB PO SCH (08:33)
[2020-05-22] MEDS ORDERED: ASPIRIN 81 MG ECTAB PO SCH (09:00)
--- NOTE | 2020-05-22 16:21 | Hospitalist Progress Note ---
Date of Service May 22, 2020 Assessment & Plan (1) Ribs, multiple fractures: -This is a 45 year old male who 1 week ago slipped on a toy object and fell on his left side which landed on another toy. Since that time patient, has been having left upper rib pain but he reports that initial CXR evaluation did not show anything remarkable. Patient has been taking over the counter Ibuprofen pain medication with minimal relief. Because he had upcoming surgical evaluation with general surgery Dr. Jackson for repair of abdominal hernia, patient was concerned as to why patricia mccracken continued to have left sided pain and he reports that his primary care doctor told him to come to the hospital for further evaluation. No evidence of pneumo or hemothorax Pain seems to be controlled with narcotic analgesics Will advise incentive spirometry We will get PT and OT evaluation Likely discharge tomorrow (2) History of DVT of lower extremity: -03/23/2020 ultrasound of left leg with "Superficial thrombus within the left greater saphenous vein that extends from the level of the mid thigh to the popliteal fossa (thrombus extends for at least 10 cm in length)." patient reports he has since that time was on Xarelto for 45 days and recently completed the Xarelto several days ago prior to presenting to the ED on 05/21/2020 -Social history of being in [facility] in the past as per PCP Dr. Amauri Fox's recent outpatient notes in 04/19/2020 which also commented that previously seen in 12/31/2015. Dr. Fox's note acknowledge that patient was discharged from ED in March 2020 in regards for the DVT but did not comment on the length of time that patient should be on systemic anticoagulation in total -Ultrasound on 05/21/2020 shows "No sonographic evidence of right or left lower extremity deep venous thrombosis. Long segment superficial venous thrombosis of the left greater saphenous vein redemonstrated." -given the length of the clot, it would appear that patient may need more than 45 days of systemic anticoagulation. Will at this time give Lovenox 1 mg/kg q12 hours. Hospitalist team will need to re-address this issue whether patient should continue oral anticoagulants watermaster -Has superficial phlebitis -We will continue with Xarelto for 6 more weeks finish 3-month course of anticoagulation -Discussed with the patient in detail and he is agreeable to that (3) Neurofibromatosis, type 2: -as confirmed by outpatient medical records -with history of neck surgeries in the past -PT/OT evaluations (4) Hypertension: -continue lisinopril 30 mg daily. 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 Jackson with general surgery as outpatient Neck pain Exam the care of [facility] neurology for ongoing neck pain He has an appointment with pain therapist as an outpatient He is advised to keep that appointment following discharge from the hospital Full Code Admission and Anticipated Discharge Date Admission Date: May 21, 2020 Subjective 05/22/2020 The patient was seen and examined in medical telemetry unit He was admitted with a fall and subsequent multiple rib fractures on the left side with severe pain His pain seems to be controlled at rest Review of Systems Review of Systems: All systems reviewed and are unremarkable except as noted below Respiratory: Left-sided chest pain with deep breathing, coughing and sneezing Physical Exam Physical Exam: Lying in bed without any acute distress Constitutional: well developed, well nourished, + acute distress (Pain involving the left upper chest), + ill appearing and + obese Eyes: PERRL, conjunctivae normal, anicteric sclerae ENMT: external ear and nose normal, oropharynx normal Neck: trachea midline, no thyromegaly Respiratory: normal respiratory effort; no respiratory distress Auscultation: lungs clear to auscultation bilaterally Cardiovascular: Rate/Rhythm: regular rate and regular rhythm Heart Sounds: no murmur Gastrointestinal (Abdomen): Inspection/Auscultation: abdomen normal to inspection, + abdomen distended (Has ventral hernia -nonobstructive) and normal bowel sounds Percussion/Palpation: abdomen nontender Musculoskeletal: No acute arthritis involving any joint Neurologic: Alert, and oriented x3 Psychiatric: A+Ox3, euthymic affect Lymphatic: no cervical or axillary lymphadenopathy Results & Data Results & Data ([facility]) Vital Signs (Past 12 Hours) Vital Signs Temp Pulse Resp BP Pulse Ox 05/22/20 15:03 36.5 C 86 18 106/71 93 05/22/20 07:29 36.6 C 78 18 108/73 92 Laboratory Results Short CBC 05/22/20 Range/Units 06:36 WBC 9.53 (4.8-10.8) K/uL Hgb 14.4 (14.0-18.0) g/dL Hct 43.8 (42-52) % Plt Count 552 H (130-400) K/uL BMP 05/22/20 06:36 Sodium 139 Potassium 4.2 Chloride 106 Carbon Dioxide 27 BUN 22 H Creatinine 1.15 Glucose 85 Calcium 8.9 Liver Function 05/22/20 Range/Units 06:36 Total Bilirubin 0.4 (0.2-1) mg/dl AST 124 H (15-37) U/L ALT 157 H (12-78) U/L Alkaline Phosphatase 47 (45-117) U/L Albumin 2.9 L (3.4-5.0) gm/dl Medications Administered Current Inpatient Medications Acetaminophen (Acetaminophen 325 Mg Tab) 325 mg PO NOW PRN PRN Reason: Pain or Fever Stop: 06/20/20 17:54 Last Admin: 05/22/20 12:54 Dose: 325 mg Documented by: Clonidine HCl (Clonidine Hcl 0.1 Mg Tab) 0.1 mg PO BID SHIRLEY Stop: 06/20/20 20:59 Last Admin: 05/22/20 08:32 Dose: 0.1 mg Documented by: Docusate Sodium (Docusate Sodium 100 Mg Cap) 100 mg PO BID SHIRLEY Stop: 06/20/20 20:59 Last Admin: 05/22/20 08:32 Dose: 100 mg Documented by: Enoxaparin Sodium (Enoxaparin Inj 120 Mg/0.8 Ml Syr) 111 mg SQ Q12H SHIRLEY Stop: 06/20/20 19:59 Last Admin: 05/22/20 08:33 Dose: 111 mg Documented by: Gabapentin (Gabapentin 600 Mg Tab) 1,200 mg PO HS SHIRLEY Stop: 06/20/20 20:59 Last Admin: 05/21/20 20:56 Dose: 1,200 mg Documented by: Gabapentin (Gabapentin 300 Mg Cap) 900 mg PO DAILY@0900,1400 SHIRLEY Stop: 06/21/20 08:59 Last Admin: 05/22/20 12:55 Dose: 900 mg Documented by: Hydromorphone HCl (Hydromorphone Inj 0.5 Mg/0.5 Ml Syr) 0.5 mg IV Q8H PRN PRN Reason: Severe Pain Stop: 06/04/20 17:54 Lisinopril (Lisinopril 10 Mg Tab) 30 mg PO DAILY [facility] Stop: 06/21/20 08:59 Last Admin: 05/22/20 08:31 Dose: 30 mg Documented by: Nortriptyline HCl (Nortriptyline Hcl 25 Mg Cap) 50 mg PO BID [facility] Stop: 06/20/20 20:59 Last Admin: 05/22/20 08:32 Dose: 50 mg Documented by: Ondansetron HCl (Ondansetron Inj 2 Mg/Ml 2 Ml Vial) 4 mg IV Q6H PRN PRN Reason: Nausea And Vomiting Stop: 06/20/20 17:59 Oxycodone HCl (Oxycodone Hcl Ir 5 Mg Tab (Immediate Release)) 5 mg PO Q6H PRN PRN Reason: Moderate Pain Stop: 06/04/20 17:54 Last Admin: 05/22/20 11:32 Dose: 5 mg Documented by: Pantoprazole Sodium (Pantoprazole 40 Mg Tab) 40 mg PO DAILY [facility] Stop: 06/21/20 08:59 Last Admin: 05/22/20 08:30 Dose: 40 mg Documented by: Polyethylene Glycol (Polyethylene (Miralax) 17 Gm Pack) 17 gm PO DAILY PRN PRN Reason: Constipation Stop: 06/20/20 18:03 Sennosides (Senna 8.6 Mg Tab) 8.6 mg PO QAM [facility] Stop: 06/20/20 18:14 Last Admin: 05/22/20 08:33 Dose: 8.6 mg Documented by: Topiramate (Topiramate 50 Mg Tab) 50 mg PO BID [facility] Stop: 06/20/20 20:59 Last Admin: 05/22/20 08:30 Dose: 50 mg Documented by:
[2020-05-22] MEDS: GABAPENTIN 600 MG TAB PO SCH (19:55)
[2020-05-23] MEDS: OXYCODONE HCL IR 5 MG TAB (IMMEDIATE RELEASE) PO PRN ×2 (03:27→12:49)
[2020-05-23] MEDS: ENOXAPARIN INJ 120 MG/0.8 ML SYR SQ SCH (07:56)
[2020-05-23] MEDS: SENNA 8.6 MG TAB PO SCH (07:58)
[2020-05-23] MEDS: NORTRIPTYLINE HCL 25 MG CAP PO SCH (07:58)
[2020-05-23] MEDS: PANTOprazole 40 MG TAB PO SCH (07:58)
[2020-05-23] MEDS: GABAPENTIN 300 MG CAP PO SCH ×2 (07:58→14:56)
[2020-05-23] MEDS: TOPIRAMATE 50 MG TAB PO SCH (07:59)
[2020-05-23] MEDS: cloNIDine HCL 0.1 MG TAB PO SCH (07:59)
[2020-05-23] MEDS: lisinopriL 10 MG TAB PO SCH (07:59)
[2020-05-23] MEDS: DOCUSATE SODIUM 100 MG CAP PO SCH (08:00)
[2020-05-23] MEDS: ACETAMINOPHEN 325 MG TAB PO PRN ×2 (08:04→17:16)
--- NOTE | 2020-05-23 08:27 | Hospitalist Progress Note ---
Date of Service May 23, 2020 Assessment & Plan (1) Ribs, multiple fractures: -This is a 45 year old male who 1 week ago slipped on a toy object and fell on his left side which landed on another toy. Since that time patient, has been having left upper rib pain but he reports that initial CXR evaluation did not show anything remarkable. Patient has been taking over the counter Ibuprofen pain medication with minimal relief. Because he had upcoming surgical evaluation with general surgery Dr. Jackson for repair of abdominal hernia, patient was concerned as to why patricia mccracken continued to have left sided pain and he reports that his primary care doctor told him to come to the hospital for further evaluation. No evidence of pneumo or hemothorax Pain seems to be controlled with lidocaine patch and occasional narcotic analgesics Continue incentive spirometry No PT OT concerns Follow-up with primary care physician (2) History of DVT of lower extremity: -03/23/2020 ultrasound of left leg with "Superficial thrombus within the left greater saphenous vein that extends from the level of the mid thigh to the popliteal fossa (thrombus extends for at least 10 cm in length)." patient reports he has since that time was on Xarelto for 45 days and recently completed the Xarelto several days ago prior to presenting to the ED on 05/21/2020 -[facility] history of being in [facility] in [facility] past as per PCP Dr. Amauri Fox's recent outpatient notes in 04/19/2020 which also commented that previously seen in 12/31/2015. Dr. Fox's note acknowledge that patient was discharged from ED in March 2020 in regards for the DVT but did not comment on the length of time that patient should be on systemic anticoagulation in total -Ultrasound on 05/21/2020 shows "No sonographic evidence of right or left lower extremity deep venous thrombosis. Long segment superficial venous thrombosis of the left greater saphenous vein redomonstrated." -given the length of the clot, it would appear that patient may need more than 45 days of systemic anticoagulation. On admission, started with Lovenox 1 mg/kg q12 hours. Hospitalist team will need to re-address this issue whether patient should continue oral anticoagulants skilled nursing -Has superficial phlebitis -We will continue with Xarelto 10 mg daily (discussed with the pharmacist, for superficial thrombus) for 45 days -Discussed with the patient in detail and he is agreeable to that Mildly elevated LFTs, AST and ALT -Recommend to follow-up CMP as outpatient (3) Neurofibromatosis, type 2: -as confirmed by outpatient medical records -with history of neck surgeries in the past -PT/OT evaluations (4) Hypertension: -continue lisinopril 30 mg daily. 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 Jackson with general surgery as outpatient Neck pain Exam the care of [facility] neurology for ongoing neck pain He has an appointment with pain therapist as an outpatient He is advised to keep that appointment following discharge from the hospital Full Code Admission and Anticipated Discharge Date Admission Date: May 21, 2020 Subjective Patient is in bed, sleeping, in no distress. Denies any shortness of breath, chest pain is well controlled at this time however he reports having lots of chest pain at night. He was counseled on rib fractures, says that he had them before, he feels that he is okay to go home. Recommended to continue lidocaine patch daily, applied this morning. Incentive spirometry. Follow-up with PCP, patient is in agreement. Review of Systems Review of Systems: All systems reviewed & are unremarkable except as noted in HPI & below All systems reviewed and are unremarkable except as noted below Constitutional: no fever and no chills Respiratory: no cough and no dyspnea Left-sided chest pain with deep breathing, coughing and sneezing Cardiovascular: no palpitations and no edema Gastrointestinal: no abdominal pain, no nausea and no vomiting Physical Exam Physical Exam: Physical Exam: Lying in bed without any acute distress Constitutional: well developed, well nourished, + obese Eyes: PERRL, EOMI, conjunctivae normal, anicteric sclerae ENMT: external ear and nose normal, oropharynx normal Neck: trachea midline, no thyromegaly Respiratory: normal respiratory effort; no respiratory distress Auscultation: lungs clear to auscultation bilaterally Cardiovascular: Rate/Rhythm: regular rate and regular rhythm Heart Sounds: no murmur Gastrointestinal (Abdomen): Inspection/Auscultation: abdomen normal to inspection, + abdomen distended (Has ventral hernia -nonobstructive) and normal bowel sounds Percussion/Palpation: abdomen nontender Musculoskeletal: No acute arthritis involving any joint, moves extremities spontaneously Neurologic: Alert, and oriented x3 Psychiatric: A+Ox3, euthymic affect Results & Data Results & Data ([facility]) Vital Signs (Past 12 Hours) Vital Signs Temp Pulse Resp BP Pulse Ox 05/23/20 07:49 36.4 C L 86 17 102/67 92 05/22/20 23:06 36.6 C 80 18 106/70 93 Medications Administered Current Inpatient Medications Acetaminophen (Acetaminophen 325 Mg Tab) 325 mg PO NOW PRN PRN Reason: Pain or Fever Stop: 06/20/20 17:54 Last Admin: 05/23/20 08:04 Dose: 325 mg Documented by: Clonidine HCl (Clonidine Hcl 0.1 Mg Tab) 0.1 mg PO BID SHIRLEY Stop: 06/20/20 20:59 Last Admin: 05/23/20 07:59 Dose: 0.1 mg Documented by: Docusate Sodium (Docusate Sodium 100 Mg Cap) 100 mg PO BID SHIRLEY Stop: 06/20/20 20:59 Last Admin: 05/23/20 08:00 Dose: 100 mg Documented by: Enoxaparin Sodium (Enoxaparin Inj 120 Mg/0.8 Ml Syr) 111 mg SQ Q12H SHIRLYE Stop: 06/20/20 19:59 Last Admin: 05/23/20 07:56 Dose: 111 mg Documented by: Gabapentin (Gabapentin 600 Mg Tab) 1,200 mg PO HS SHIRLEY Stop: 06/20/20 20:59 Last Admin: 05/22/20 19:55 Dose: 1,200 mg Documented by: Gabapentin (Gabapentin 300 Mg Cap) 900 mg PO DAILY@0900,1400 [facility] Stop: 06/21/20 08:59 Last Admin: 05/23/20 07:58 Dose: 900 mg Documented by: Hydromorphone HCl (Hydromorphone Inj 0.5 Mg/0.5 Ml Syr) 0.5 mg IV Q8H PRN PRN Reason: Severe Pain Stop: 06/04/20 17:54 Lidocaine (Lidocaine 5% 1 Patch) 1 patch TD QAM SHIRLEY Stop: 06/22/20 08:59 Lisinopril (Lisinopril 10 Mg Tab) 30 mg PO DAILY SHIRLEY Stop: 06/21/20 08:59 Last Admin: 05/23/20 07:59 Dose: 30 mg Documented by: Miscellaneous (Remove Lidoderm Patch) 1 ea N/A DAILY@2100 [facility] Stop: 06/22/20 20:59 Nortriptyline HCl (Nortriptyline Hcl 25 Mg Cap) 50 mg PO BID [facility] Stop: 06/20/20 20:59 Last Admin: 05/23/20 07:58 Dose: 50 mg Documented by: Ondansetron HCl (Ondansetron Inj 2 Mg/Ml 2 Ml Vial) 4 mg IV Q6H PRN PRN Reason: Nausea And Vomiting Stop: 06/20/20 17:59 Oxycodone HCl (Oxycodone Hcl Ir 5 Mg Tab (Immediate Release)) 5 mg PO Q6H PRN PRN Reason: Moderate Pain Stop: 06/04/20 17:54 Last Admin: 05/23/20 03:27 Dose: 5 mg Documented by: Pantoprazole Sodium (Pantoprazole 40 Mg Tab) 40 mg PO DAILY [facility] Stop: 06/21/20 08:59 Last Admin: 05/23/20 07:58 Dose: 40 mg Documented by: Polyethylene Glycol (Polyethylene (Miralax) 17 Gm Pack) 17 gm PO DAILY PRN PRN Reason: Constipation Stop: 06/20/20 18:03 Sennosides (Senna 8.6 Mg Tab) 8.6 mg PO QAM [facility] Stop: 06/20/20 18:14 Last Admin: 05/23/20 07:58 Dose: 8.6 mg Documented by: Topiramate (Topiramate 50 Mg Tab) 50 mg PO BID [facility] Stop: 06/20/20 20:59 Last Admin: 05/23/20 07:59 Dose: 50 mg Documented by:
[2020-05-23] MEDS ORDERED: LIDOCAINE 5% 1 PATCH TD SCH (09:00)
--- NOTE | 2020-05-23 19:21 | Discharge Summary ---
Date of Service May 23, 2020 Admission HPI Per Admitting Provider This is a 45 year old male who 1 week ago slipped on a toy object and fell on his left side which landed on another toy. Since that time patient, has been having left upper rib pain but he reports that initial CXR evaluation did not show anything remarkable. Patient has been taking over the counter Ibuprofen pain medication with minimal relief. Because he had upcoming surgical evaluation with general surgery Dr. Jackson for repair of abdominal hernia, patient was concerned as to why patricia mccracken continued to have left sided pain and he reports that his primary care doctor told him to come to the hospital for further evaluation. -In the ED, patient was found to have on CT chest scan : Acute nondisplaced fractures of the left second through sixth ribs anteriorly. No evidence of pneumothorax. No evidence of pulmonary contusion -patient saturating well on room air -03/23/2020 ultrasound of left leg with "Superficial thrombus within the left greater saphenous vein that extends from the level of the mid thigh to the pop liteal fossa (thrombus extends for at least 10 cm in length)." patient reports he has since that time was on Xarelto for 45 days and recently completed the Xarelto several days ago prior to presenting to the ED on 05/21/2020 -[facility] history of being in [facility] the [facility] as per PCP Dr. Amauri Fox's recent outpatient notes in 04/19/2020 which also commented that previously seen in 12/31/2015. Dr. Fox's note acknowledge that patient was discharged from ED in March 2020 in regards for the DVT but did not comment on the length of time that patient should be on systemic anticoagulation in total -Ultrasound on 05/21/2020 shows "No sonographic evidence of right or left lower extremity deep venous thrombosis. Long segment superficial venous thrombosis of the left greater saphenous vein redemonstrated." On review of systems, patient denies acute headache, dizziness, lightheadedness, shortness of breath, chest pain, nausea, vomiting. 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 and history of neck surgeries in the past but denies problems with ambulation Family History of Diabetes mellitus Allergies: Patient reports hives to penicillin diltiazem, carvedilol Primary Care Provider: Amauri Fox MD Admission Exam Per Admitting Provider Constitutional: cooperative Eyes: PERRL, conjunctivae normal, anicteric sclerae EOM intact bilaterally ENMT: external ear and nose normal, oropharynx normal Neck: normal visual inspection Respiratory: normal respiratory effort, lungs clear to auscultation Cardiovascular: Rate/Rhythm: regular rate Gastrointestinal (Abdomen): Inspection/Auscultation: normal bowel sounds Percussion/Palpation: abdomen soft and + hernia Musculoskeletal: Head/Neck/Chest: normocephalic Neurologic: PERRL, EOMI, accommodation nl, no face palsy, no dysarthria moves all extremities Psychiatric: A+Ox3, euthymic affect Principal Diagnosis Multiple rib Fractures, history of DVT, now with persistent superficial thrombus Discharge Exam Physical Exam: Young obese male, lying in bed without any acute distress Constitutional: well developed, well nourished, + obese Eyes: PERRL, EOMI, conjunctivae normal, anicteric sclerae ENMT: external ear and nose normal, oropharynx normal Neck: trachea midline, no thyromegaly Respiratory: normal respiratory effort; no respiratory distress Auscultation: lungs clear to auscultation bilaterally Cardiovascular: Rate/Rhythm: regular rate and regular rhythm Heart Sounds: no murmur Gastrointestinal (Abdomen): Inspection/Auscultation: abdomen normal to inspection, + abdomen distended (Has ventral hernia -nonobstructive) and normal bowel sounds Percussion/Palpation: abdomen nontender Musculoskeletal: No acute arthritis involving any joint, moves extremities spontaneously Neurologic: Alert, and oriented x3 Psychiatric: A+Ox3, euthymic affect Discharge Data Allergies Allergy/AdvReac Type Severity Reaction Status Date / Time diltiazem Allergy Severe HIVES Verified 05/21/20 16:18 Penicillins Allergy Mild . Verified 05/21/20 16:18 carvedilol AdvReac Unknown TOLD NOT Verified 05/21/20 16:18 TO TAKE Consultations 05/21/20 17:52 ED Decision to Admit Stat Ordered Studies 05/21/20 14:03 CT chest w con Stat IMPRESSION: 1. Acute nondisplaced fractures of the left second through sixth ribs anteriorly. 2. Trace bilateral pleural effusions with bibasilar opacities likely atelectatic 3. No evidence of pneumothorax. No evidence of pulmonary contusion 4. Surgically absent spleen 05/21/20 18:01 US venous doppler LE Routine IMPRESSION: 1. No sonographic evidence of right or left lower extremity deep venous thrombosis. 2. Long segment superficial venous thrombosis of the left greater saphenous vein redemonstrated. Hospital Course (1) Ribs, multiple fractures: -This is a 45 year old male who 1 week ago slipped on a toy object and fell on his left side which landed on another toy. Since that time patient, has been having left upper rib pain but he reports that initial CXR evaluation did not show anything remarkable. Patient has been taking over the counter Ibuprofen pain medication with minimal relief. Because he had upcoming surgical evaluation with general surgery Dr. Jackson for repair of abdominal hernia, patient was concerned as to why h kaykay continued to have left sided pain and he reports that his primary care doctor told him to come to the hospital for further evaluation. No evidence of pneumo or hemothorax Pain seems to be controlled with lidocaine patch and occasional narcotic analgesics Continue incentive spirometry No PT OT concerns Follow-up with primary care physician (2) History of DVT of lower extremity: -03/23/2020 ultrasound of left leg with "Superficial thrombus within the left greater saphenous vein that extends from the level of the mid thigh to the popliteal fossa (thrombus extends for at least 10 cm in length)." patient reports he has since that time was on Xarelto for 45 days and recently completed the Xarelto several days ago prior to presenting to the ED on 05/21/2020 -Social history of [facility] in [facility] the [facility] as per PCP Dr. Amauri Fox's recent outpatient notes in 04/19/2020 which also commented that previously seen in 12/31/2015. Dr. Fox's note acknowledge that patient was discharged from ED in March 2020 in regards for the DVT but did not comment on the length of time that patient should be on systemic anticoagulation in total -Ultrasound on 05/21/2020 shows "No sonographic evidence of right or left lower extremity deep venous thrombosis. Long segment superficial venous thrombosis of the left greater saphenous vein redomonstrated." -given the length of the clot, it would appear that patient may need more than 45 days of systemic anticoagulation. On admission, started with Lovenox 1 mg/kg q12 hours. Hospitalist team will need to re-address this issue whether patient should continue oral anticoagulants residential -Has superficial phlebitis -We will continue with Xarelto 10 mg daily (discussed with the pharmacist, for superficial venous thrombus) for 45 days -Discussed with the patient in detail and he is agreeable to that Mildly elevated LFTs, AST and ALT -Recommend to follow-up CMP as outpatient (3) Neurofibromatosis, type 2: -as confirmed by outpatient medical records -with history of neck surgeries in the past -PT/OT evaluations (4) Hypertension: -continue lisinopril 30 mg daily. 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 Jackson with general surgery as outpatient Neck pain Exam the care of [facility] neurology for ongoing neck pain He has an appointment with pain therapist as an outpatient He is advised to keep that appointment following discharge from the hospital Total Time Total Time Spent Total Time Spent (In Minutes): 40 Total Time Includes: Examination of the Patient, Discharge Planning and Medication Reconciliation Discharge Plan Discharge Items Patient Disposition: Home - Self-Care Reason For Visit: LEFT RIB FRACTURE HISTORY OF DVT Discharge Diagnosis: Rib Fracture, history of DVT Condition on Discharge: Good Activity: Per Instructions section Lifting: No more than 5 pounds Non-emergency contact: Primary Care Provider Call non-emergency contact if: you have any medication questions and your symptoms worsen Follow-up/Referrals: Amauri Fox MD [Primary Care Provider] - (Date & Time 05/28/2020 11:20 AM Provider Amauri Fox MD Department Internal Medicine [facility] ) Diet: Regular Addtl Attending Provider Instructions: Recommend lidocaine patch, ibuprofen, and Tylenol up to 2000 mg a day. You can take oxycodone only as needed for more severe pain. Follow-up with your primary care provider as scheduled, for May 28. Recommend to take Xarelto 10 mg daily for next 45 days and follow-up with your primary care doctor. Recommend blood work, CMP, when you follow-up with your primary care doctor. Recommend not to lift anything heavy, or exert yourself. However you are okay to walk around, and recommend to use incentive spirometer. Pending Studies at Discharge: No Stand-Alone Forms: My [employer], Smoking Cessation Medications and DC Order Prescriptions: New acetaminophen 325 mg Tablet 325 mg PO NOW PRN (Reason: pain (scale score 1-3)) Qty: 14 RF: 0 oxycodone 5 mg Tablet 5 mg PO Q6H PRN (Reason: pain) Qty: 5 RF: 0 lidocaine 5 % Adhesive Patch,Medicated 1 patch transdermal QAM Qty: 15 RF: 0 Xarelto 10 mg tablet 10 mg PO DAILY 45 Days Qty: 45 RF: 0 Continued aspirin 81 mg Tablet,Delayed Release (Dr/Ec) 81 mg PO DAILY RF: 0 lisinopril 30 mg Tablet 30 mg PO DAILY RF: 0 ibuprofen 600 mg Tablet 600 mg PO Q6H PRN (Reason: Pain) RF: 0 nortriptyline 50 mg Capsule 50 mg PO BID RF: 0 clonidine HCl 0.1 mg tablet 0.1 mg PO BID RF: 0 sumatriptan succinate 50 mg tablet 50 mg PO DIRECTED PRN (Reason: Headache) RF: 0 lansoprazole 30 mg capsule,delayed release(DR/EC) 30 mg PO QAM RF: 0 gabapentin 300 mg capsule See Rx Instructions .ROUTE .COMPLEX RF: 0 furosemide 20 mg tablet 20 mg PO DAILY PRN (Reason: Fluid Retention) RF: 0 topiramate [Topamax] 50 mg tablet 50 mg PO BID RF: 0 Discharge Orders: Discharge Order (Routine); Ordered 05/23/20 Ordered By: Darryn Simpson Admission Data Admit Date/Time: 05/21/20 17:55 Attending Provider: Darryn Simpson Admit Provider: Mart Alvarenga Primary Care Provider: Amauri Fox Other Providers: Mart Alvarenga ; Nereida Espinoza Other Interventions: Discharge Summary Assessment (RN) Last Done: 05/23/20 17:45
== END 2020-05-23 19:02 | disposition home or self-care (01) ==
LOC: 2N 13:37 → ED 13:37 → SUATTDRO 17:55 → 2N 18:27

== ENCOUNTER 2020-12-03 14:56 | Inpatient (IN) ==
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
[2020-12-03 15:43] LABS: Basophils # (auto) 0.05 K/uL (0-0.2); Basophils % (auto) 0.4 %; Eosinophils # (auto) 0.37 K/uL (0-0.5); Eosinophils % (auto) 3.3 %; Hematocrit (blood only) 39.3 % (42-52); Hemoglobin 13.5 g/dL (14.0-18.0); Immature Granulocytes # (auto) 0.03 K/uL (0.00-0.02); Immature Granulocytes % (auto) 0.3 %; Lymphocytes # (auto) 4.64 K/uL (1.2-3.4); Lymphocytes % (auto) 41.5 %; Mean Corpuscular Hemoglobin 32.5 pg (25-34); Mean Corpuscular Hgb Conc 34.4 g/dL (32-36); Mean Corpuscular Volume 94.5 fL (80-100); Mean Platelet Volume 10.3 fL (7.4-10.4); Monocytes # (auto) 0.99 K/uL (0.11-0.59); Monocytes % (auto) 8.8 %; Neutrophils # (auto) 5.11 K/uL (1.4-6.5); Neutrophils % (auto) 45.7 %; Platelet Count 386 K/uL (130-400); RDW Coefficient of Variation 14.1 % (11.5-14.5); RDW Standard Deviation 48.6 fL (36.4-46.3); Red Blood Count 4.16 M/uL (4.7-6.1); White Blood Count 11.19 K/uL (4.8-10.8)
[2020-12-03 16:05] LABS: Appearance Urine Clear (Clear); Bacteria Urine Automated Negative (Negative); Bilirubin Urine Negative (Negative); Blood Urine 2+ (Negative); Color Urine Yellow; Epithelial Cell Urine Auto 0-5 /lpf (0-5); Glucose Urine UA Negative (Negative); Ketones Urine Negative (Negative); Leukocyte Esterase Urine Negative (Negative); Nitrite Urine Negative (Negative); Protein Urine Negative (Negative); Specific Gravity Urine 1.011 (1.000-1.030); Urobilinogen Urine Negative (Negative); pH Urine 6.5 (4.5-7.5)
[2020-12-03 16:16] LABS: BUN Creatinine Ratio 20.5 (10-20); Calcium 8.9 mg/dl (8.5-10.1); Creatinine Clr Calc Pharmacy 114.2 ml/min; Est GFR (African American) 116.1; Est GFR (Non-African American) 100.2; Potassium 4.3 mmol/L (3.5-5.1)
[2020-12-03 16:26] LABS: Bilirubin,Total 0.5 mg/dl (0.2-1); Globulin 3.9 gm/dl (2.5-4.0); Thyroid Stimulating Hormone 0.77 uIu/ml (0.300-4.500); Total Protein 7.9 gm/dl (6.4-8.2)
[2020-12-03 16:38] LABS: Acetaminophen < 2 ug/ml (10-30)
[2020-12-03 16:40] LABS: Amphetamines+Metham, Urine Neg (Neg); Barbiturates, Urine Neg (Neg); Benzodiazepine, Urine Neg (Neg); Cocaine, Urine Neg (Neg); MDMA (Ecstacy), Urine Neg (Neg); Methadone, Urine Neg (Neg); Opiate, Urine Neg (Neg); Phencyclidine, Urine Neg (Neg)
[2020-12-03 16:44] LABS: Salicylate 1.8 mg/dl (2.8-20)
[2020-12-03 18:15] LABS: Influenza A virus by PCR Negative (Neg); Influenza B virus by PCR Negative (Neg); RSV by PCR Negative (Neg); SARS CoV2 RNA(COVID-19) InHosp NEGATIVE (Negative)
[2020-12-03] MEDS ORDERED: haloperidoL 5 MG TAB PO STA (19:15)
[2020-12-03] MEDS ORDERED: NICOTINE POLACRILEX 2 MG GUM MT PRN (19:16)
[2020-12-03] MEDS ORDERED: MAGNESIUM HYDROXIDE SUSP 30 ML UDC PO PRN (19:16)
[2020-12-03] MEDS ORDERED: ACETAMINOPHEN 325 MG TAB PO PRN ×2 (19:16→19:59)
[2020-12-03] MEDS ORDERED: SODIUM CHLORIDE 0.65% NA SOLN 45 ML (OCEAN) PRN ×2 (19:16→19:59)
[2020-12-03] MEDS ORDERED: ALUMINUM/MAGNESIUM SUSP 30 ML UDC PO PRN ×2 (19:16→19:59)
[2020-12-03] MEDS ORDERED: hydrOXYzine HCl 25 MG TAB PO PRN ×4 (19:16→19:59)
[2020-12-03] MEDS ORDERED: BISMUTH SUBSALICYLATE LIQD 236 ML PO PRN ×2 (19:16→19:59)
[2020-12-03] MEDS ORDERED: ALBUTEROL HFA 8 GM INHALER INH PRN ×2 (19:24→19:59)
[2020-12-03] MEDS ORDERED: FUROSEMIDE 20 MG TAB PO PRN ×2 (19:24→19:59)
[2020-12-03] MEDS ORDERED: SUMAtriptan succinate 50 MG TAB PO PRN (19:25)
[2020-12-03] MEDS ORDERED: QUEtiapine FUMARATE 25 MG TABLET PO PRN (19:27)
[2020-12-03] MEDS ORDERED: BENZTROPINE MESYLATE 1 MG TAB PO PRN ×2 (19:29→19:59)
[2020-12-03] MEDS ORDERED: haloperidoL 5 MG TAB PO PRN ×2 (19:29→19:59)
[2020-12-03] MEDS ORDERED: GABAPENTIN 300 MG CAP PO SCH (19:30)
[2020-12-03] MEDS ORDERED: NICOTINE 21 MG/24 HR TDSY TD SCH (19:30)
[2020-12-03] MEDS ORDERED: NORTRIPTYLINE HCL 25 MG CAP PO SCH (21:00)
[2020-12-03] MEDS ORDERED: cloNIDine HCL 0.1 MG TAB PO SCH (21:00)
[2020-12-03] MEDS ORDERED: TOPIRAMATE 50 MG TAB PO SCH (21:00)
[2020-12-03] MEDS ORDERED: FLUTICASONE/SALMETEROL (ADVAIR) 500/50 INH 14 PUFF INH SCH (21:00)
[2020-12-03] MEDS: TOPIRAMATE 50 MG TAB PO SCH (21:44)
[2020-12-03] MEDS: NORTRIPTYLINE HCL 25 MG CAP PO SCH (21:46)
[2020-12-03] MEDS: GABAPENTIN 300 MG CAP PO SCH (21:46)
[2020-12-03] MEDS ORDERED: QUEtiapine FUMARATE 100 MG TABLET PO ONE ×2 (22:00)
--- NOTE | 2020-12-04 08:09 | History & Physical ---
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 Reason: Nicotine Withdrawal Stop: 01/02/21 19:15 Nortriptyline HCl (Nortriptyline Hcl 25 Mg Cap) 50 mg PO BID [facility] Stop: 01/02/21 20:59 Last Admin: 12/03/20 21:46 Dose: 50 mg Documented by: Pantoprazole Sodium (Pantoprazole 40 Mg Tab) 40 mg PO QAM [facility] Stop: 01/03/21 08:59 Quetiapine Fumarate (Quetiapine Fumarate 25 Mg Tablet) 50 mg PO Q4 PRN PRN Reason: Anxiety/Insomnia Stop: 01/02/21 19:26 Sodium Chloride (Sodium Chloride 0.65% Na Soln 45 Ml ([place])) 1 - 2 sprays NA PRN PRN PRN Reason: Nasal Dryness/Congestion Stop: 01/02/21 19:15 Sumatriptan Succinate (Sumatriptan Succinate 50 Mg Tab) 50 mg PO DAILY PRN PRN Reason: Migraine Headache Stop: 01/02/21 19:24 Topiramate (Topiramate 50 Mg Tab) 50 mg PO BID [facility] Stop: 01/02/21 20:59 Last Admin: 12/03/20 21:44 Dose: 50 mg Documented by:
[2020-12-04] MEDS ORDERED: lisinopril 10 MG TAB PO SCH (09:00)
[2020-12-04] MEDS ORDERED: BUPRENORPHINE NALOXONE SL SCH (09:00)
[2020-12-04] MEDS ORDERED: PANTOprazole 40 MG TAB PO SCH (09:00)
[2020-12-04] MEDS ORDERED: BUPRENORPHINE/NALOXONE 8/2 MG TAB SL SCH (09:00)
[2020-12-04] MEDS ORDERED: GABAPENTIN 300 MG CAP PO SCH (09:00)
[2020-12-04] MEDS ORDERED: ASPIRIN 81 MG ECTAB PO SCH (09:00)
[2020-12-04] MEDS: NICOTINE 21 MG/24 HR TDSY TD SCH (10:27)
[2020-12-04] MEDS: ASPIRIN 81 MG ECTAB PO SCH (10:28)
[2020-12-04] MEDS: cloNIDine HCL 0.1 MG TAB PO SCH ×2 (10:30→17:20)
[2020-12-04] MEDS: FLUTICASONE/VILANTEROL 200/25MCG 14 PUFFS/INHALER INH SCH (10:31)
[2020-12-04] MEDS: GABAPENTIN 300 MG CAP PO SCH ×3 (10:31→21:20)
[2020-12-04] MEDS: PANTOprazole 40 MG TAB PO SCH (10:32)
[2020-12-04] MEDS: lisinopril 10 MG TAB PO SCH (10:32)
[2020-12-04] MEDS: NORTRIPTYLINE HCL 25 MG CAP PO SCH ×2 (10:32→21:20)
[2020-12-04] MEDS: TOPIRAMATE 50 MG TAB PO SCH ×2 (10:33→21:20)
[2020-12-04] MEDS: BUPRENORPHINE/NALOXONE 2/0.5MG 1 TAB PO SCH (12:33)
[2020-12-04] MEDS: ARIPiprazole 5 MG TAB PO SCH (13:32)
[2020-12-04] MEDS: QUEtiapine FUMARATE 25 MG TABLET PO PRN (14:34)
[2020-12-05] MEDS: ARIPiprazole 5 MG TAB PO SCH (08:52)
[2020-12-05] MEDS: ASPIRIN 81 MG ECTAB PO SCH (08:52)
[2020-12-05] MEDS: FLUTICASONE/VILANTEROL 200/25MCG 14 PUFFS/INHALER INH SCH (08:53)
[2020-12-05] MEDS: NORTRIPTYLINE HCL 25 MG CAP PO SCH ×2 (08:54→21:16)
[2020-12-05] MEDS: GABAPENTIN 300 MG CAP PO SCH ×3 (08:54→21:16)
[2020-12-05] MEDS: NICOTINE 21 MG/24 HR TDSY TD SCH (08:54)
[2020-12-05] MEDS: lisinopril 10 MG TAB PO SCH (08:54)
[2020-12-05] MEDS: TOPIRAMATE 50 MG TAB PO SCH ×2 (08:54→21:16)
[2020-12-05] MEDS: PANTOprazole 40 MG TAB PO SCH (08:54)
[2020-12-05] MEDS: BUPRENORPHINE/NALOXONE 2/0.5MG 1 TAB PO SCH (08:56)
[2020-12-05] MEDS: cloNIDine HCL 0.1 MG TAB PO SCH ×2 (08:58→16:00)
[2020-12-05 09:23] LABS: Glucose Fasting 87 mg/dl (70-99)
[2020-12-05 09:31] LABS: Chol HDL Ratio 2; Cholesterol 75 mg/dl (0-200); HDL Cholesterol 31 mg/dl; LDL Cholesterol Calculated 36 mg/dl; Triglycerides 39 mg/dl (0-150); VLDL Cholesterol 8 mg/dl
--- NOTE | 2020-12-05 09:42 | Psychiatric Progress Note ---
Date of Service December 05, 2020 Impression / Recommendations Impression 45-year-old single male with a history of bipolar type II and heroin and meth abuse as well as antisocial and dependent personality traits who presents with auditory hallucinations in the context of medication nonadherence and a relapse on numerous substances 2 months ago. He also endorses suicidal thoughts to overdose. Inpatient treatment is medically necessary due to the severity of symptoms and risk for suicide if discharged. (1) Psychosis: 12/04 -patient reports auditory hallucinations of 6-7 voices that have been going on for the past couple of months, beginning during a time when he relapsed and was using meth, heroin, fentanyl, MDMA, and bath salts. He also reports experiencing auditory hallucinations in the past when using. Differential includes substance-induced psychosis, primary thought disorder, unidentified organic cause, or psychotic mood disorder. If his reports of the timeline of his substance use are accurate, and substance-induced psychosis can be ruled out as he denies using drugs since September. He is not necessarily a reliable historian, however, which makes diagnosis a challenge. -Previous trial of quetiapine which the patient self discontinued quickly due to feeling more tired. He did respond positively to a dose of Haldol 5 mg last night, and will continue this as needed. He had been discussing a trial of aripiprazole with his outpatient clinician, and after review of risks, benefits, and side effects, agreed to initiate that here. Will start 5 mg daily and order fasting labs for baseline on an atypical antipsychotic for tomorrow. -Reviewed outpatient records, will contact Carolina Wilson NP to coordinate care. -Reality testing, address substance use disorders as below, as use is clearly contributing to psychotic symptoms. 12/05 - Pt agreeable with titrating aripiprazole to 10mg qAM starting tomorrow morning. Feeling it has not yet made a difference for reported auditory hallucinations. Pt now admitting that the voices did start while he was still abusing substances, but have persisted despite his reports of sobriety for the past few months. - Fasting glucose and lipid panel reviewed - all values WNL - Coordinate with outpatient psychiatric providers, determine additional opportunities for outpatient supports. - Encourage patient to attend group programming (2) Bipolar II disorder: 12/04 -patient reports hypomanic episodes, unclear if these have occurred during periods of sobriety, and have also occurred during SNRI trials. Avoid unopposed antidepressants. -Trial of aripiprazole as above. (3) Opiate abuse, continuous: 12/04 -patient reports using IV heroin and fentanyl most recently in September, currently on Suboxone, continue home dose here and coordinate with outpatient substance abuse treatment providers. May benefit from more robust substance abuse treatment, including NA and AA. (4) Methamphetamine abuse: As above (5) IVDU (intravenous drug user): Follow-up with PCP after discharge for HIV testing Risk Factors Assessment Male: Yes : Yes Do You Have Access To A Gun?: No Health Problems: Yes Mental Health Diagnoses: Yes Substance Use Disorders: Yes Previous Attempt: Yes Previous Attempt; Highly Lethal: Yes Previous Psychiatric Hospitalization: Yes Hopelessness: No Smoker: Yes Protective Factors Assessment : No Responsible for Young Children: No Employed: No Stable Relationships: No Supportive Family: Yes Interval History Identifying Information FLORENCIO LAUREN is a 45-year-old M who currently lives in [place], has a history of bipolar disorder, heroin and methamphetamine abuse, and hepatitis C and was admitted on 12/03/20 19:17 on a 201 voluntary commitment for hallu cinations and psychosis. Chief Complaint "I've been hearing voices." Review of Systems Notes Constitutional: denied Cardiovascular: denied Respiratory: denied Gastrointestinal: denied Musculoskeletal: reports "neck tightness" Neurological: denied Psychiatric: denies symptoms other than stated above Total of at least 10 systems reviewed, pertinent positives as above and in HPI. Sleep Information Total Hours of Sleep: 11 Meal Information Percent Meal Consumed - Breakfast: 100 Percent Meal Consumed - Lunch: 50 Percent Meal Consumed - Dinner: 100 Nutrition Comment: allowed to sleep Subjective Subjective Patient was seen & assessed and interval progress reviewed with treatment team. Staff report the patient has been attending some groups, but has been rather reserved with regard to participation. Pt was seen today to assess progress since admission. He states "I've been hearing voices." Pt believes they have been ongoing for the past few months, and is able today to state that he does believe they originated while he was still abusing substances. Despite his reports of sobriety, however, he states that the voices have gotten progressively worse over the past few months. Pt states he is hearing between 13-15 voices, but that they offer conflicting messages - "some tell me that this is punishment for hurting someone, but then other say the exact opposite, that I've done nothing wrong." Pt does admit that at least one of the voices is "the girl I love", who is still living, calling him "a piece of shit." Pt states the voices will also "flash different signs. They'll flash the word 'suicide' or show me an image of my shelf with the pills on it, because that's how I did it in 2006. Other times they'll flash a sign that says 'violence'." Pt admits to feeling safe here on the unit and denies thoughts to harm himself or others. He is agreeable with titrating aripiprazole, and denies perceived side effects. He states he has not yet noticed significant improvement with the medication, but this morning told staff that the voices were still present but quieter. Pt denied other needs or concerns. Physical Exam Psychiatric Orientation: alert, oriented x 3 and cooperative (though limited spontaneous interaction) Apperance: appropriately groomed and appeared stated age Eye Contact: + poor eye contact (predominantly staring at ground) Motor Behavior: no abnormal motor movements Speech: normal rate/rhythm/volume of speech (slightly slowed, but responses seem less delayed) Affect: + flat affect Mood: + depressed mood Thought Process: + concrete thought process Thought Content: + paranoid and + persecution Suicidal Thoughts: denies suicidal thoughts and denies suicidal intent Homicidal Thoughts: denies homicidal thoughts and denies homicidal intent Hallucinations: + auditory hallucinations; no visual hallucinations (though reports seeing "flashes" of "signs" coming from the voices) reports auditory hallucinations of 13 to 15 voices, they offer conflicting statements. Pt states the voices "flash signs like 'suicide' or 'violence'." Cognition: attention grossly intact and language grossly intact; + recent memory not intact Estimated Intelligence: + below average estimated intelligence Insight: + impaired insight Judgement: + impaired judgement Vital Signs (Past 24 Hours) Last Vital Signs Temp 36.3 C L 12/05/20 06:00 Pulse 71 12/05/20 06:00 Resp 16 12/05/20 06:00 BP 91/58 L 12/05/20 06:32 Pulse Ox 94 12/03/20 17:48 Results & Data ([facility]) Laboratory Results Laboratory Results - last 24 hr 12/05/20 08:42 Fasting Glucose 87 Triglycerides 39 Cholesterol 75 LDL Cholesterol, Calc 36 VLDL Cholesterol, Calc 8 HDL Cholesterol 31 Cholesterol/HDL Ratio 2 Current Inpatient Medications Current Inpatient Medications: Current Inpatient Medications Acetaminophen (Acetaminophen 325 Mg Tab) 650 mg PO Q4H PRN PRN Reason: Headache or Minor Fever Stop: 01/02/21 19:15 Al Hydrox/Mg Hydrox/Simethicone (Aluminum/Magnesium Susp 30 Ml Udc) 30 ml PO Q4H PRN PRN Reason: GI Upset Stop: 01/02/21 19:15 Albuterol (Albuterol Hfa 8 Gm Inhaler) 1 puffs INH QID PRN; Protocol PRN Reason: sob Stop: 01/02/21 19:23 Aripiprazole (Aripiprazole 5 Mg Tab) 5 mg PO QAM [facility] Stop: 01/03/21 12:44 Last Admin: 12/05/20 08:52 Dose: 5 mg Documented by: Aspirin (Aspirin 81 Mg Ectab) 81 mg PO QAM [facility] Stop: 01/03/21 08:59 Last Admin: 12/05/20 08:52 Dose: 81 mg Documented by: Benztropine Mesylate (Benztropine Mesylate 1 Mg Tab) 1 mg PO Q6 PRN PRN Reason: Muscle Spasm Stop: 01/02/21 19:28 Bismuth Subsalicylate (Bismuth Subsalicylate Liqd 236 Ml) 15 ml PO PRN PRN PRN Reason: Loose Stool Stop: 01/02/21 19:15 Buprenorphine/Naloxone (Buprenorphine/Naloxone 2/0.5mg 1 Tab) 1 tab PO DAILY [facility] Stop: 01/03/21 11:29 Last Admin: 12/05/20 08:56 Dose: 1 tab Documented by: Clonidine HCl (Clonidine Hcl 0.1 Mg Tab) 0.1 mg PO 0900,1600 [facility] Stop: 01/03/21 08:59 Last Admin: 12/05/20 08:58 Dose: 0.1 mg Documented by: Fluticasone/Vilanterol (Fluticasone/Vilanterol 200/25mcg 14 Puffs/Inhaler) 1 puffs INH DAILY [facility]; Protocol Stop: 01/03/21 08:59 Last Admin: 12/05/20 08:53 Dose: 1 puffs Documented by: Furosemide (Furosemide 20 Mg Tab) 20 mg PO DAILY PRN PRN Reason: Fluid Retention Stop: 01/02/21 19:23 Gabapentin (Gabapentin 300 Mg Cap) 600 mg PO QAM [facility] Stop: 01/03/21 08:59 Last Admin: 12/05/20 08:54 Dose: 600 mg Documented by: Gabapentin (Gabapentin 300 Mg Cap) 900 mg PO 1400,2100 [facility] Stop: 01/02/21 20:59 Last Admin: 12/04/20 21:20 Dose: 900 mg Documented by: Haloperidol (Haloperidol 5 Mg Tab) 5 mg PO Q6 PRN PRN Reason: Agitation Stop: 01/02/21 19:28 Last Admin: 12/04/20 18:19 Dose: 5 mg Documented by: Hydroxyzine HCl (Hydroxyzine Hcl 25 Mg Tab) 50 mg PO HSZ PRN PRN Reason: Insomnia Stop: 01/02/21 19:15 Hydroxyzine HCl (Hydroxyzine Hcl 25 Mg Tab) 25 mg PO Q4H PRN PRN Reason: Anxiety Stop: 01/02/21 19:15 Lisinopril (Lisinopril 10 Mg Tab) 30 mg PO QAM [facility] Stop: 01/03/21 08:59 Last Admin: 12/05/20 08:54 Dose: 30 mg Documented by: Magnesium Hydroxide (Magnesium Hydroxide Susp 30 Ml Udc) 30 ml PO DAILY PRN PRN Reason: Constipation Stop: 01/02/21 19:15 Miscellaneous (Remove Nicoderm Patch) 1 ea N/A DAILY@0859 [facility] Stop: 01/03/21 08:58 Last Admin: 12/05/20 08:58 Dose: 1 ea Documented by: Nicotine (Nicotine 21 Mg/24 Hr Tdsy) 21 mg TD QAM [facility] Stop: 01/02/21 19:29 Last Admin: 12/05/20 08:54 Dose: 21 mg Documented by: Nicotine Polacrilex (Nicotine Polacrilex 2 Mg Gum) 1 piece MT PRN PRN PRN Reason: Nicotine Withdrawal Stop: 01/02/21 19:15 Nortriptyline HCl (Nortriptyline Hcl 25 Mg Cap) 50 mg PO BID [facility] Stop: 01/02/21 20:59 Last Admin: 12/05/20 08:54 Dose: 50 mg Documented by: Pantoprazole Sodium (Pantoprazole 40 Mg Tab) 40 mg PO QAM [facility] Stop: 01/03/21 08:59 Last Admin: 12/05/20 08:54 Dose: 40 mg Documented by: Quetiapine Fumarate (Quetiapine Fumarate 25 Mg Tablet) 50 mg PO Q4 PRN PRN Reason: Anxiety/Insomnia Stop: 01/02/21 19:26 Last Admin: 12/04/20 14:34 Dose: 50 mg Documented by: Sodium Chloride (Sodium Chloride 0.65% Na Soln 45 Ml ([place])) 1 - 2 sprays NA PRN PRN PRN Reason: Nasal Dryness/Congestion Stop: 01/02/21 19:15 Sumatriptan Succinate (Sumatriptan Succinate 50 Mg Tab) 50 mg PO DAILY PRN PRN Reason: Migraine Headache Stop: 01/02/21 19:24 Topiramate (Topiramate 50 Mg Tab) 50 mg PO BID [facility] Stop: 01/02/21 20:59 Last Admin: 12/05/20 08:54 Dose: 50 mg Documented by: Mental Health & Subst Abuse Tx Psychiatrist Name of Psychiatrist: Yaneth Wilson Psychiatrist's Therapist Name of Therapist: Srinivas Hernández Therapist's Ophthalmologist Retina Specialist Name of Ophthalmologist Retina Specialist: Does have one doesn't remember Post Discharge Appointments Primary Care Physician Name Of Family Doctor: Ant Salgado [facility] Other #1: Name of Aftercare Appointment: [facility] [place] Darius Pereira Phone Number of Aftercare Appointment: [phone] #2: Name of Aftercare Appointment: [facility] Phone Number of Aftercare Appointment: [phone] Contact Information Discharge Discharge Address: [address] [place], [place] [address] [id number]
[2020-12-05] MEDS: NICOTINE POLACRILEX 2 MG GUM MT PRN ×2 (16:24→21:15)
[2020-12-06] MEDS: ARIPiprazole 10 MG TAB PO SCH (08:36)
[2020-12-06] MEDS: PANTOprazole 40 MG TAB PO SCH (08:37)
[2020-12-06] MEDS: TOPIRAMATE 50 MG TAB PO SCH ×2 (08:37→21:14)
[2020-12-06] MEDS: GABAPENTIN 300 MG CAP PO SCH ×3 (08:37→21:14)
[2020-12-06] MEDS: lisinopril 10 MG TAB PO SCH (08:38)
[2020-12-06] MEDS: NORTRIPTYLINE HCL 25 MG CAP PO SCH ×2 (08:38→21:14)
[2020-12-06] MEDS: ASPIRIN 81 MG ECTAB PO SCH (08:39)
[2020-12-06] MEDS: cloNIDine HCL 0.1 MG TAB PO SCH ×2 (08:39→15:58)
[2020-12-06] MEDS: FLUTICASONE/VILANTEROL 200/25MCG 14 PUFFS/INHALER INH SCH (08:40)
[2020-12-06] MEDS: NICOTINE 21 MG/24 HR TDSY TD SCH (08:40)
[2020-12-06] MEDS: BUPRENORPHINE/NALOXONE 2/0.5MG 1 TAB PO SCH (08:42)
--- NOTE | 2020-12-06 11:39 | Psychiatric Progress Note ---
Date of Service December 06, 2020 Impression / Recommendations Impression 45-year-old single male with a history of bipolar type II and heroin and meth abuse as well as antisocial and dependent personality traits who presents with auditory hallucinations in the context of medication nonadherence and a relapse on numerous substances 2 months ago. He also endorses suicidal thoughts to overdose. Inpatient treatment is medically necessary due to the severity of symptoms and risk for suicide if discharged. (1) Psychosis: 12/04 -patient reports auditory hallucinations of 6-7 voices that have been going on for the past couple of months, beginning during a time when he relapsed and was using meth, heroin, fentanyl, MDMA, and bath salts. He also reports experiencing auditory hallucinations in the past when using. Differential includes substance-induced psychosis, primary thought disorder, unidentified organic cause, or psychotic mood disorder. If his reports of the timeline of his substance use are accurate, and substance-induced psychosis can be ruled out as he denies using drugs since September. He is not necessarily a reliable historian, however, which makes diagnosis a challenge. -Previous trial of quetiapine which the patient self discontinued quickly due to feeling more tired. He did respond positively to a dose of Haldol 5 mg last night, and will continue this as needed. He had been discussing a trial of aripiprazole with his outpatient clinician, and after review of risks, benefits, and side effects, agreed to initiate that here. Will start 5 mg daily and order fasting labs for baseline on an atypical antipsychotic for tomorrow. -Reviewed outpatient records, will contact Carolina Wilson NP to coordinate care. -Reality testing, address substance use disorders as below, as use is clearly contributing to psychotic symptoms. 12/05 - Pt agreeable with titrating aripiprazole to 10mg qAM starting tomorrow morning. Feeling it has not yet made a difference for reported auditory hallucinations. Pt now admitting that the voices did start while he was still abusing substances, but have persisted despite his reports of sobriety for the past few months. - Fasting glucose and lipid panel reviewed - all values WNL - Coordinate with outpatient psychiatric providers, determine additional opportunities for outpatient supports. - Encourage patient to attend group programming 12/06 - Aripiprazole 10mg qAM. Pt admits to ongoing auditory hallucinations, but states they are mildly improved - Denying SI/HI or safety concerns - Meeting scheduled with case management social worker for 12/10 - Continue to coordinate aftercare supports with outpatient providers. (2) Bipolar II disorder: 12/04 -patient reports hypomanic episodes, unclear if these have occurred during periods of sobriety, and have also occurred during SNRI trials. Avoid unopposed antidepressants. -Trial of aripiprazole as above. 12/06 - Titrating aripiprazole as above (3) Opiate abuse, continuous: 12/04 -patient reports using IV heroin and fentanyl most recently in September, currently on Suboxone, continue home dose here and coordinate with outpatient substance abuse treatment providers. May benefit from more robust substance abuse treatment, including NA and AA. 12/06 - Follow-up appointment with Dr. Fox scheduled for Thursday12/17/20 at 8:15 - It was reported that patient has a 1-week supply of Suboxone still at his pharmacy that can be picked up on discharge and used until his follow-up appointment. (4) Methamphetamine abuse: As above (5) IVDU (intravenous drug user): Follow-up with PCP after discharge for HIV testing Risk Factors Assessment Male: Yes : Yes Do You Have Access To A Gun?: No Health Problems: Yes Mental Health Diagnoses: Yes Substance Use Disorders: Yes Previous Attempt: Yes Previous Attempt; Highly Lethal: Yes Previous Psychiatric Hospitalization: Yes Hopelessness: No Smoker: Yes Protective Factors Assessment : No Responsible for Young Children: No Employed: No Stable Relationships: No Supportive Family: Yes Interval History Identifying Information FLORENCIO LAUREN is a 45-year-old M who currently lives in [place], has a history of bipolar disorder, heroin and methamphetamine abuse, and hepatitis C and was admitted on 12/03/20 19:17 on a 201 voluntary commitment for hallucinations and psychosis. Chief Complaint "Um, I'm ok." Review of Systems Notes Constitutional: denied Cardiovascular: denied Respiratory: denied Gastrointestinal: denied Neurological: denied Psychiatric: denies symptoms other than stated above Total of at least 10 systems reviewed, pertinent positives as above and in HPI. Sleep Information Total Hours of Sleep: 8 Meal Information Percent Meal Consumed - Breakfast: 100 Percent Meal Consumed - Lunch: 100 Percent Meal Consumed - Dinner: 100 Nutrition Comment: allowed to sleep Subjective Subjective Patient was seen & assessed and interval progress reviewed with nursing and social work. Staff report the patient has been out of his room more and opening up with peers. He rated his mood a 4/10 and "scared" last evening. Pt was seen today to assess progress since admission. Pt admits that he is feeling "ok". He denies concerns related to sleep and admits his appetite is improved. With regard to auditory hallucinations, they are ongoing but mildly improved. He states the continue to contract themselves, which is frustrating for him. Pt remains agreeable with gradual titration of aripiprazole. He states he was proud of himself last evening for speaking more in groups. He denies SI/HI. Pt denied other needs or concerns today. Physical Exam Psychiatric Orientation: alert, oriented x 3 and cooperative Apperance: appropriately dressed, appropriately groomed and appeared stated age Eye Contact: + fair eye contact Motor Behavior: no abnormal motor movements Speech: normal rate/rhythm/volume of speech Affect: + flat affect Mood: + depressed mood Thought Process: goal directed thought process and + concrete thought process Thought Content: + paranoid and + persecution Suicidal Thoughts: denies suicidal thoughts and denies suicidal intent Homicidal Thoughts: denies homicidal thoughts Hallucinations: + auditory hallucinations; no visual hallucinations Cognition: attention grossly intact and language grossly intact Estimated Intelligence: + below average estimated intelligence Insight: + impaired insight Judgement: + impaired judgement Vital Signs (Past 24 Hours) Last Vital Signs Temp 36.6 C 12/06/20 06:00 Pulse 93 H 12/06/20 06:40 Resp 16 12/06/20 06:00 BP 107/71 12/06/20 06:40 Pulse Ox 94 12/03/20 17:48 Results & Data ([facility]) Current Inpatient Medications Current Inpatient Medications: Current Inpatient Medications Acetaminophen (Acetaminophen 325 Mg Tab) 650 mg PO Q4H PRN PRN Reason: Headache or Minor Fever Stop: 01/02/21 19:15 Al Hydrox/Mg Hydrox/Simethicone (Aluminum/Magnesium Susp 30 Ml Udc) 30 ml PO Q4H PRN PRN Reason: GI Upset Stop: 01/02/21 19:15 Albuterol (Albuterol Hfa 8 Gm Inhaler) 1 puffs INH QID PRN; Protocol PRN Reason: sob Stop: 01/02/21 19:23 Aripiprazole (Aripiprazole 10 Mg Tab) 10 mg PO QAM SHIRLEY Stop: 01/05/21 08:59 Last Admin: 12/06/20 08:36 Dose: 10 mg Documented by: Aspirin (Aspirin 81 Mg Ectab) 81 mg PO QAM [facility] Stop: 01/03/21 08:59 Last Admin: 12/06/20 08:39 Dose: 81 mg Documented by: Benztropine Mesylate (Benztropine Mesylate 1 Mg Tab) 1 mg PO Q6 PRN PRN Reason: Muscle Spasm Stop: 01/02/21 19:28 Bismuth Subsalicylate (Bismuth Subsalicylate Liqd 236 Ml) 15 ml PO PRN PRN PRN Reason: Loose Stool Stop: 01/02/21 19:15 Buprenorphine/Naloxone (Buprenorphine/Naloxone 2/0.5mg 1 Tab) 1 tab PO DAILY [facility] Stop: 01/03/21 11:29 Last Admin: 12/06/20 08:42 Dose: 1 tab Documented by: Clonidine HCl (Clonidine Hcl 0.1 Mg Tab) 0.1 mg PO 0900,1600 [facility] Stop: 01/03/21 08:59 Last Admin: 12/06/20 08:39 Dose: 0.1 mg Documented by: Fluticasone/Vilanterol (Fluticasone/Vilanterol 200/25mcg 14 Puffs/Inhaler) 1 puffs INH DAILY [facility]; Protocol Stop: 01/03/21 08:59 Last Admin: 12/06/20 08:40 Dose: 1 puffs Documented by: Furosemide (Furosemide 20 Mg Tab) 20 mg PO DAILY PRN PRN Reason: Fluid Retention Stop: 01/02/21 19:23 Gabapentin (Gabapentin 300 Mg Cap) 600 mg PO QAM [facility] Stop: 01/03/21 08:59 Last Admin: 12/06/20 08:37 Dose: 600 mg Documented by: Gabapentin (Gabapentin 300 Mg Cap) 900 mg PO 1400,2100 [facility] Stop: 01/02/21 20:59 Last Admin: 12/05/20 21:16 Dose: 900 mg Documented by: Haloperidol (Haloperidol 5 Mg Tab) 5 mg PO Q6 PRN PRN Reason: Agitation Stop: 01/02/21 19:28 Last Admin: 12/04/20 18:19 Dose: 5 mg Documented by: Hydroxyzine HCl (Hydroxyzine Hcl 25 Mg Tab) 50 mg PO HSZ PRN PRN Reason: Insomnia Stop: 01/02/21 19:15 Hydroxyzine HCl (Hydroxyzine Hcl 25 Mg Tab) 25 mg PO Q4H PRN PRN Reason: Anxiety Stop: 01/02/21 19:15 Lisinopril (Lisinopril 10 Mg Tab) 30 mg PO QAM [facility] Stop: 01/03/21 08:59 Last Admin: 12/06/20 08:38 Dose: 30 mg Documented by: Magnesium Hydroxide (Magnesium Hydroxide Susp 30 Ml Udc) 30 ml PO DAILY PRN PRN Reason: Constipation Stop: 01/02/21 19:15 Miscellaneous (Remove Nicoderm Patch) 1 ea N/A DAILY@0859 [facility] Stop: 01/03/21 08:58 Last Admin: 12/06/20 08:39 Dose: 1 ea Documented by: Nicotine (Nicotine 21 Mg/24 Hr Tdsy) 21 mg TD QAM [facility] Stop: 01/02/21 19:29 Last Admin: 12/06/20 08:40 Dose: 21 mg Documented by: Nicotine Polacrilex (Nicotine Polacrilex 2 Mg Gum) 1 piece MT PRN PRN PRN Reason: Nicotine Withdrawal Stop: 01/02/21 19:15 Last Admin: 12/05/20 21:15 Dose: 1 piece Documented by: Nortriptyline HCl (Nortriptyline Hcl 25 Mg Cap) 50 mg PO BID [facility] Stop: 01/02/21 20:59 Last Admin: 12/06/20 08:38 Dose: 50 mg Documented by: Pantoprazole Sodium (Pantoprazole 40 Mg Tab) 40 mg PO QAM [facility] Stop: 01/03/21 08:59 Last Admin: 12/06/20 08:37 Dose: 40 mg Documented by: Quetiapine Fumarate (Quetiapine Fumarate 25 Mg Tablet) 50 mg PO Q4 PRN PRN Reason: Anxiety/Insomnia Stop: 01/02/21 19:26 Last Admin: 12/04/20 14:34 Dose: 50 mg Documented by: Sodium Chloride (Sodium Chloride 0.65% Na Soln 45 Ml ([place])) 1 - 2 sprays NA PRN PRN PRN Reason: Nasal Dryness/Congestion Stop: 01/02/21 19:15 Sumatriptan Succinate (Sumatriptan Succinate 50 Mg Tab) 50 mg PO DAILY PRN PRN Reason: Migraine Headache Stop: 01/02/21 19:24 Topiramate (Topiramate 50 Mg Tab) 50 mg PO BID [facility] Stop: 01/02/21 20:59 Last Admin: 12/06/20 08:37 Dose: 50 mg Documented by: Mental Health & Subst Abuse Tx Psychiatrist Name of Psychiatrist: Marco Wilson Psychiatrist's Therapist Name of Therapist: Marco Hernández Therapist's First Press Operator Name of First Press Operator: . Post Discharge Appointments Primary Care Physician Name Of Family Doctor: Ant Fox [facility] Time of Appointment with PCP: Please follow up as needed Provider Appointment Comment: [address] [place] [address] [place] [address] Specialist Name of Specialist: Dr. Fox Phone Number for Specialist: [phone] Date of Appointment with Specialist: 12/17/20 Time of Appointment with Specialist: 8:15am Specialty Appointment Comment: Rebecca cates [facility] called pt. pharmacy to ensure pt. has supply of Suboxone Other #1: Name of Aftercare Appointment: [place] [facility]- Darius Pereira Phone Number of Aftercare Appointment: [phone] #2: [facility]ava Goodman Phone Number of Aftercare Appointment: [phone] Contact Information Discharge Discharge Address: [facility] [address] [place] [address]
[2020-12-06] MEDS: NICOTINE POLACRILEX 2 MG GUM MT PRN (13:16)
[2020-12-07] MEDS: ASPIRIN 81 MG ECTAB PO SCH (09:04)
[2020-12-07] MEDS: ARIPiprazole 10 MG TAB PO SCH (09:04)
[2020-12-07] MEDS: FLUTICASONE/VILANTEROL 200/25MCG 14 PUFFS/INHALER INH SCH (09:05)
[2020-12-07] MEDS: cloNIDine HCL 0.1 MG TAB PO SCH ×2 (09:05→16:11)
[2020-12-07] MEDS: BUPRENORPHINE/NALOXONE 2/0.5MG 1 TAB PO SCH (09:05)
[2020-12-07] MEDS: GABAPENTIN 300 MG CAP PO SCH ×3 (09:06→21:27)
[2020-12-07] MEDS: TOPIRAMATE 50 MG TAB PO SCH ×2 (09:06→21:27)
[2020-12-07] MEDS: NORTRIPTYLINE HCL 25 MG CAP PO SCH ×2 (09:06→21:27)
[2020-12-07] MEDS: NICOTINE 21 MG/24 HR TDSY TD SCH (09:06)
[2020-12-07] MEDS: PANTOprazole 40 MG TAB PO SCH (09:06)
[2020-12-07] MEDS: lisinopril 10 MG TAB PO SCH (09:06)
[2020-12-07] MEDS: QUEtiapine FUMARATE 25 MG TABLET PO PRN (10:37)
--- NOTE | 2020-12-07 12:50 | Psychiatric Progress Note ---
Date of Service December 07, 2020 Impression / Recommendations Impression 45-year-old single male with a history of bipolar type II and heroin and meth abuse as well as antisocial and dependent personality traits who presents with auditory hallucinations in the context of medication nonadherence and a relapse on numerous substances 2 months ago. He also endorses suicidal thoughts to overdose. Inpatient treatment is medically necessary due to the severity of symptoms and risk for suicide if discharged. (1) Psychosis: 12/04 -patient reports auditory hallucinations of 6-7 voices that have been going on for the past couple of months, beginning during a time when he relapsed and was using meth, heroin, fentanyl, MDMA, and bath salts. He also reports experiencing auditory hallucinations in the past when using. Differential includes substance-induced psychosis, primary thought disorder, unidentified organic cause, or psychotic mood disorder. If his reports of the timeline of his substance use are accurate, and substance-induced psychosis can be ruled out as he denies using drugs since September. He is not necessarily a reliable historian, however, which makes diagnosis a challenge. -Previous trial of quetiapine which the patient self discontinued quickly due to feeling more tired. He did respond positively to a dose of Haldol 5 mg last night, and will continue this as needed. He had been discussing a trial of aripiprazole with his outpatient clinician, and after review of risks, benefits, and side effects, agreed to initiate that here. Will start 5 mg daily and order fasting labs for baseline on an atypical antipsychotic for tomorrow. -Reviewed outpatient records, will contact Carolina Wilson NP to coordinate care. -Reality testing, address substance use disorders as below, as use is clearly contributing to psychotic symptoms. 12/05 - Pt agreeable with titrating aripiprazole to 10mg qAM starting tomorrow morning. Feeling it has not yet made a difference for reported auditory hallucinations. Pt now admitting that the voices did start while he was still abusing substances, but have persisted despite his reports of sobriety for the past few months. - Fasting glucose and lipid panel reviewed - all values WNL - Coordinate with outpatient psychiatric providers, determine additional opportunities for outpatient supports. - Encourage patient to attend group programming 12/06 - Aripiprazole 10mg qAM. Pt admits to ongoing auditory hallucinations, but states they are mildly improved - Denying SI/HI or safety concerns - Meeting scheduled with case coordinator for 12/10 - Continue to coordinate aftercare supports with outpatient providers. 12/07 - Pt agreed to titrate aripiprazole to 15mg starting tomorrow morning. Ongoing auditory hallucinations, but volume reduced from 6/10 (on admission) to 2-3/10 within the past few days. - Denying SI/HI - Consider family meeting with mother (2) Bipolar II disorder: 12/04 -patient reports hypomanic episodes, unclear if these have occurred during periods of sobriety, and have also occurred during SNRI trials. Avoid unopposed antidepressants. -Trial of aripiprazole as above. 12/06 - Titrating aripiprazole as above (3) Opiate abuse, continuous: 12/04 -patient reports using IV heroin and fentanyl most recently in September, currently on Suboxone, continue home dose here and coordinate with outpatient substance abuse treatment providers. May benefit from more robust substance abuse treatment, including NA and AA. 12/06 - Follow-up appointment with Dr. Fox scheduled for Thursday12/17/20 at 8:15 - It was reported that patient has a 1-week supply of Suboxone still at his pharmacy that can be picked up on discharge and used until his follow-up appointment. (4) Methamphetamine abuse: As above (5) IVDU (intravenous drug user): Follow-up with PCP after discharge for HIV testing Risk Factors Assessment Male: Yes : Yes Do You Have Access To A Gun?: No Health Problems: Yes Mental Health Diagnoses: Yes Substance Use Disorders: Yes Previous Attempt: Yes Previous Attempt; Highly Lethal: Yes Previous Psychiatric Hospitalization: Yes Hopelessness: No Smoker: Yes Protective Factors Assessment : No Responsible for Young Children: No Employed: No Stable Relationships: No Supportive Family: Yes Interval History Identifying Information FLORENCIO LAUREN is a 45-year-old M who currently lives in [place], has a history of bipolar disorder, heroin and methamphetamine abuse, and hepatitis C and was admitted on 12/03/20 19:17 on a 201 voluntary commitment for halluci nations and psychosis. Chief Complaint "My mood was a little anxious." Review of Systems Notes Constitutional: denied Cardiovascular: denied Respiratory: denied Gastrointestinal: denied Neurological: denied Psychiatric: denies symptoms other than stated above Total of at least 10 systems reviewed, pertinent positives as above and in HPI. Sleep Information Total Hours of Sleep: 8 Meal Information Percent Meal Consumed - Breakfast: 100 Percent Meal Consumed - Lunch: 100 Percent Meal Consumed - Dinner: 100 Nutrition Comment: allowed to sleep Subjective Subjective Patient was seen & assessed and interval progress reviewed with treatment team. Staff report the patient has been participating in group and recreational programming, slowly opening up more with peers. Pt rated his mood a 5/10 and "anxious" both last evening and this morning. Pt was seen today to assess progress since admission. Pt states "my mood was a little anxious", but he admits it is slowly improving. Pt states that his goal today was to not focus as much on the voices. Pt admits that the volume of his auditory hallucinations has been reduced - rating it a 6/10 (10=loudest) at time of admission, and a 2- 3/10 presently. Pt states that voices are frustrating, but are not encouraging him to do anything to harm himself. Pt is aware of meeting with case coordinator on Thursday and did feeling that a support meeting with his mother could be helpful. Pt denied SI/HI and other acute concerns today. Physical Exam Psychiatric Orientation: alert, oriented x 3 and cooperative Apperance: appropriately dressed, appropriately groomed and appeared stated age Eye Contact: + poor eye contact (mostly staring down at the floor) Motor Behavior: steady gait and station and no abnormal motor movements Speech: normal rate/rhythm/volume of speech Affect: + flat affect Mood: + anxious mood; no depressed mood Thought Process: goal directed thought process and + concrete thought process Thought Content: reality based without delusions; no hopelessness Suicidal Thoughts: denies suicidal thoughts and denies suicidal intent Homicidal Thoughts: denies homicidal thoughts and denies homicidal intent Hallucinations: + auditory hallucinations (but states volume has been reduced); no visual hallucinations Cognition: attention grossly intact and language grossly intact Estimated Intelligence: + below average estimated intelligence Insight: + limited insight Judgement: + limited judgement Vital Signs (Past 24 Hours) Last Vital Signs Temp 36.5 C 12/07/20 06:00 Pulse 69 12/07/20 06:38 Resp 16 12/07/20 06:00 BP 105/61 12/07/20 06:38 Pulse Ox 94 12/03/20 17:48 Results & Data ([facility]) Current Inpatient Medications Current Inpatient Medications: Current Inpatient Medications Acetaminophen (Acetaminophen 325 Mg Tab) 650 mg PO Q4H PRN PRN Reason: Headache or Minor Fever Stop: 01/02/21 19:15 Al Hydrox/Mg Hydrox/Simethicone (Aluminum/Magnesium Susp 30 Ml Udc) 30 ml PO Q4H PRN PRN Reason: GI Upset Stop: 01/02/21 19:15 Albuterol (Albuterol Hfa 8 Gm Inhaler) 1 puffs INH QID PRN; Protocol PRN Reason: sob Stop: 01/02/21 19:23 Aripiprazole (Aripiprazole 15 Mg Tab) 15 mg PO QAM SHIRLEY Stop: 01/07/21 08:59 Aspirin (Aspirin 81 Mg Ectab) 81 mg PO QAM SHIRLEY Stop: 01/03/21 08:59 Last Admin: 12/07/20 09:04 Dose: 81 mg Documented by: Benztropine Mesylate (Benztropine Mesylate 1 Mg Tab) 1 mg PO Q6 PRN PRN Reason: Muscle Spasm Stop: 01/02/21 19:28 Bismuth Subsalicylate (Bismuth Subsalicylate Liqd 236 Ml) 15 ml PO PRN PRN PRN Reason: Loose Stool Stop: 01/02/21 19:15 Buprenorphine/Naloxone (Buprenorphine/Naloxone 2/0.5mg 1 Tab) 1 tab PO DAILY SHIRLEY Stop: 01/03/21 11:29 Last Admin: 12/07/20 09:05 Dose: 1 tab Documented by: Clonidine HCl (Clonidine Hcl 0.1 Mg Tab) 0.1 mg PO 0900,1600 [facility] Stop: 01/03/21 08:59 Last Admin: 12/07/20 09:05 Dose: 0.1 mg Documented by: Fluticasone/Vilanterol (Fluticasone/Vilanterol 200/25mcg 14 Puffs/Inhaler) 1 puffs INH DAILY SHIRLEY; Protocol Stop: 01/03/21 08:59 Last Admin: 12/07/20 09:05 Dose: 1 puffs Documented by: Furosemide (Furosemide 20 Mg Tab) 20 mg PO DAILY PRN PRN Reason: Fluid Retention Stop: 01/02/21 19:23 Gabapentin (Gabapentin 300 Mg Cap) 600 mg PO QAM SHIRLEY Stop: 01/03/21 08:59 Last Admin: 12/07/20 09:06 Dose: 600 mg Documented by: Gabapentin (Gabapentin 300 Mg Cap) 900 mg PO 1400,2100 [facility] Stop: 01/02/21 20:59 Last Admin: 12/06/20 21:14 Dose: 900 mg Documented by: Haloperidol (Haloperidol 5 Mg Tab) 5 mg PO Q6 PRN PRN Reason: Agitation Stop: 01/02/21 19:28 Last Admin: 12/04/20 18:19 Dose: 5 mg Documented by: Hydroxyzine HCl (Hydroxyzine Hcl 25 Mg Tab) 50 mg PO HSZ PRN PRN Reason: Insomnia Stop: 01/02/21 19:15 Hydroxyzine HCl (Hydroxyzine Hcl 25 Mg Tab) 25 mg PO Q4H PRN PRN Reason: Anxiety Stop: 01/02/21 19:15 Lisinopril (Lisinopril 10 Mg Tab) 30 mg PO QAM [facility] Stop: 01/03/21 08:59 Last Admin: 12/07/20 09:06 Dose: 30 mg Documented by: Magnesium Hydroxide (Magnesium Hydroxide Susp 30 Ml Udc) 30 ml PO DAILY PRN PRN Reason: Constipation Stop: 01/02/21 19:15 Miscellaneous (Remove Nicoderm Patch) 1 ea N/A DAILY@0859 [facility] Stop: 01/03/21 08:58 Last Admin: 12/07/20 09:16 Dose: 1 ea Documented by: Nicotine (Nicotine 21 Mg/24 Hr Tdsy) 21 mg TD QAM [facility] Stop: 01/02/21 19:29 Last Admin: 12/07/20 09:06 Dose: 21 mg Documented by: Nicotine Polacrilex (Nicotine Polacrilex 2 Mg Gum) 1 piece MT PRN PRN PRN Reason: Nicotine Withdrawal Stop: 01/02/21 19:15 Last Admin: 12/06/20 13:16 Dose: 1 piece Documented by: Nortriptyline HCl (Nortriptyline Hcl 25 Mg Cap) 50 mg PO BID [facility] Stop: 01/02/21 20:59 Last Admin: 12/07/20 09:06 Dose: 50 mg Documented by: Pantoprazole Sodium (Pantoprazole 40 Mg Tab) 40 mg PO QAM [facility] Stop: 01/03/21 08:59 Last Admin: 12/07/20 09:06 Dose: 40 mg Documented by: Quetiapine Fumarate (Quetiapine Fumarate 25 Mg Tablet) 50 mg PO Q4 PRN PRN Reason: Anxiety/Insomnia Stop: 01/02/21 19:26 Last Admin: 12/07/20 10:37 Dose: 50 mg Documented by: Sodium Chloride (Sodium Chloride 0.65% Na Soln 45 Ml (Kirwin)) 1 - 2 sprays NA PRN PRN PRN Reason: Nasal Dryness/Congestion Stop: 01/02/21 19:15 Sumatriptan Succinate (Sumatriptan Succinate 50 Mg Tab) 50 mg PO DAILY PRN PRN Reason: Migraine Headache Stop: 01/02/21 19:24 Topiramate (Topiramate 50 Mg Tab) 50 mg PO BID SHIRLEY Stop: 01/02/21 20:59 Last Admin: 12/07/20 09:06 Dose: 50 mg Documented by: Mental Health & Subst Abuse Tx Psychiatrist Name of Psychiatrist: Marco Wilson Psychiatrist's Therapist Name of Therapist: Marco Hernández Therapist's Telescope Repairer Name of Telescope Repairer: . Post Discharge Appointments Primary Care Physician Name Of Family Doctor: Ant Fox [facility] Time of Appointment with PCP: Please follow up as needed Provider Appointment Comment: [address] [place] [id number] Specialist Name of Specialist: Dr. Fox Phone Number for Specialist: [phone] Date of Appointment with Specialist: 12/17/20 Time of Appointment with Specialist: 8:15am Specialty Appointment Comment: Rebecca cates [facility] called pt. pharmacy to ensure pt. has supply of Suboxone Other #1: Name of Aftercare Appointment: [facility] [place]- Darius Pereira Phone Number of Aftercare Appointment: [phone] #2: [facility] Phone Number of Aftercare Appointment: [phone] Contact Information Discharge Discharge Address: [facility] [address] [place] [id number]
--- NOTE | 2020-12-08 06:55 | Psychiatric Progress Note ---
Date of Service December 08, 2020 Impression / Recommendations Impression 45-year-old single male with a history of bipolar type II, heroin and meth abuse, antisocial and dependent personality traits who presents with auditory hallucinations in the context of medication nonadherence and a relapse on numerous substances 2 months ago. Inpatient treatment is medically necessary due to the severity of symptoms and risk for suicide if discharged. (1) Psychosis: 12/04 -patient reports auditory hallucinations of 6-7 voices that have been going on for the past couple of months, beginning during a time when he relapsed and was using meth, heroin, fentanyl, MDMA, and bath salts. He also reports experiencing auditory hallucinations in the past when using. Differential includes substance-induced psychosis, primary thought disorder, unidentified organic cause, or psychotic mood disorder. If his reports of the timeline of his substance use are accurate, and substance-induced psychosis can be ruled out as he denies using drugs since September. He is not necessarily a reliable historian, however, which makes diagnosis a challenge. -Previous trial of quetiapine which the patient self discontinued quickly due to feeling more tired. He did respond positively to a dose of Haldol 5 mg last night, and will continue this as needed. He had been discussing a trial of aripiprazole with his outpatient clinician, and after review of risks, benefits, and side effects, agreed to initiate that here. Will start 5 mg daily and order fasting labs for baseline on an atypical antipsychotic for tomorrow. -Reviewed outpatient records, will contact Carolina Wilson NP to coordinate care. -Reality testing, address substance use disorders as below, as use is clearly contributing to psychotic symptoms. 12/05 - Pt agreeable with titrating aripiprazole to 10mg qAM starting tomorrow morning. Feeling it has not yet made a difference for reported auditory hallucinations. Pt now admitting that the voices did start while he was still abusing substances, but have persisted despite his reports of sobriety for the past few months. - Fasting glucose and lipid panel reviewed - all values WNL - Coordinate with outpatient psychiatric providers, determine additional opportunities for outpatient supports. - Encourage patient to attend group programming 12/06 - Aripiprazole 10mg qAM. Pt admits to ongoing auditory hallucinations, but states they are mildly improved - Denying SI/HI or safety concerns - Meeting scheduled with retail support manager for 12/10 - Continue to coordinate aftercare supports with outpatient providers. 12/07 - Pt agreed to titrate aripiprazole to 15mg starting tomorrow morning. Ongoing auditory hallucinations, but volume reduced from 6/10 (on admission) to 2-3/10 within the past few days. - Denying SI/HI - Consider family meeting with mother 12/08 -Abilify increased to 15 mg today, continue titration to effective dose. Auditory hallucinations of voices are improving but still present and impairing functioning. Thought blocking and depression still noted on exam. (2) Bipolar II disorder: 12/04 -patient reports hypomanic episodes, unclear if these have occurred during periods of sobriety, and have also occurred during SNRI trials. Avoid unopposed antidepressants. -Trial of aripiprazole as above. 12/06 - Titrating aripiprazole as above 12/08 -continue to titrate aripiprazole, continue nortriptyline and gabapentin. (3) Opiate abuse, continuous: 12/04 -patient reports using IV heroin and fentanyl most recently in September, currently on Suboxone, continue home dose here and coordinate with outpatient substance abuse treatment providers. May benefit from more robust substance abuse treatment, including NA and AA. 12/06 - Follow-up appointment with Dr. Fox scheduled for Thursday12/17/20 at 8:15 - It was reported that patient has a 1-week supply of Suboxone still at his pharmacy that can be picked up on discharge and used until his follow-up appointment. (4) Methamphetamine abuse: As above (5) IVDU (intravenous drug user): Follow-up with PCP after discharge for HIV testing Risk Factors Assessment Male: Yes : Yes Do You Have Access To A Gun?: No Health Problems: Yes Mental Health Diagnoses: Yes Substance Use Disorders: Yes Previous Attempt: Yes Previous Attempt; Highly Lethal: Yes Previous Psychiatric Hospitalization: Yes Hopelessness: No Smoker: Yes Protective Factors Assessment : No Responsible for Young Children: No Employed: No Stable Relationships: No Supportive Family: Yes Interval History Identifying Information FLORENCIO LAUREN is a 45-year-old M who currently lives in [place], has a history of bipolar disorder, heroin and methamphetamine abuse, and hepatitis C and was admitted on 12/03/20 19:17 on a 201 voluntary commitment for hallucinations and psychosis. Chief Complaint "Doing all right". Review of Systems Sleep Information Total Hours of Sleep: 10 Meal Information Percent Meal Consumed - Breakfast: 100 Percent Meal Consumed - Lunch: 100 Percent Meal Consumed - Dinner: 100 Nutrition Comment: allowed to sleep Subjective Subjective Patient was seen & assessed and interval progress reviewed with nursing and social work. Staff report he is attending groups, taking medications as prescribed, no reported ongoing auditory hallucinations of voices. On my assessment, he states that the voices are "a little quieter, I'm not sure as to why." He continues to struggle to focus at times, stating they are very distracting. His mood is "unsure," which he says is related to not knowing why the voices got quieter. He denies suicidal thoughts and feels safe here. He talked to his mother a couple of times since admission and says she is supportive and he plans to return to live with her. He continues to report thought blocking, stating that sometimes "there is just a space in my head" when he tries to think or answer questions, and other times feels unable to focus due to the voices. He states he likes to read and write but has not been able to focus enough to do that in months. 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 Physical Exam Psychiatric Orientation: alert and cooperative Apperance: appropriately dressed and appropriately groomed Just showered Eye Contact: + fair eye contact Motor Behavior: steady gait and station and no abnormal motor movements Halting, delayed, long pauses at times Affect: + blunted affect "Unsure" Thought Process: + thought blocking and + concrete thought process Thought Content: + persecution Suicidal Thoughts: denies suicidal thoughts Homicidal Thoughts: denies homicidal thoughts Hallucinations: + auditory hallucinations Cognition: language grossly intact; + attention not intact Insight: + fair insight Judgement: + fair judgement Vital Signs (Past 24 Hours) Last Vital Signs Temp 36.1 C L 12/07/20 20:09 Pulse 69 12/07/20 06:38 Resp 16 12/07/20 06:00 BP 105/61 12/07/20 06:38 Pulse Ox 94 12/03/20 17:48 Results & Data ([facility]) Current Inpatient Medications Current Inpatient Medications: Current Inpatient Medications Acetaminophen (Acetaminophen 325 Mg Tab) 650 mg PO Q4H PRN PRN Reason: Headache or Minor Fever Stop: 01/02/21 19:15 Al Hydrox/Mg Hydrox/Simethicone (Aluminum/Magnesium Susp 30 Ml Udc) 30 ml PO Q4H PRN PRN Reason: GI Upset Stop: 01/02/21 19:15 Albuterol (Albuterol Hfa 8 Gm Inhaler) 1 puffs INH QID PRN; Protocol PRN Reason: sob Stop: 01/02/21 19:23 Aripiprazole (Aripiprazole 15 Mg Tab) 15 mg PO QAM [facility] Stop: 01/07/21 08:59 Aspirin (Aspirin 81 Mg Ectab) 81 mg PO QAM [facility] Stop: 01/03/21 08:59 Last Admin: 12/07/20 09:04 Dose: 81 mg Documented by: Benztropine Mesylate (Benztropine Mesylate 1 Mg Tab) 1 mg PO Q6 PRN PRN Reason: Muscle Spasm Stop: 01/02/21 19:28 Bismuth Subsalicylate (Bismuth Subsalicylate Liqd 236 Ml) 15 ml PO PRN PRN PRN Reason: Loose Stool Stop: 01/02/21 19:15 Buprenorphine/Naloxone (Buprenorphine/Naloxone 2/0.5mg 1 Tab) 1 tab PO DAILY [facility] Stop: 01/03/21 11:29 Last Admin: 12/07/20 09:05 Dose: 1 tab Documented by: Clonidine HCl (Clonidine Hcl 0.1 Mg Tab) 0.1 mg PO 0900,1600 [facility] Stop: 01/03/21 08:59 Last Admin: 12/07/20 16:11 Dose: 0.1 mg Documented by: Fluticasone/Vilanterol (Fluticasone/Vilanterol 200/25mcg 14 Puffs/Inhaler) 1 puffs INH DAILY [facility]; Protocol Stop: 01/03/21 08:59 Last Admin: 12/07/20 09:05 Dose: 1 puffs Documented by: Furosemide (Furosemide 20 Mg Tab) 20 mg PO DAILY PRN PRN Reason: Fluid Retention Stop: 01/02/21 19:23 Gabapentin (Gabapentin 300 Mg Cap) 600 mg PO QAM [facility] Stop: 01/03/21 08:59 Last Admin: 12/07/20 09:06 Dose: 600 mg Documented by: Gabapentin (Gabapentin 300 Mg Cap) 900 mg PO 1400,2100 [facility] Stop: 01/02/21 20:59 Last Admin: 12/07/20 21:27 Dose: 900 mg Documented by: Haloperidol (Haloperidol 5 Mg Tab) 5 mg PO Q6 PRN PRN Reason: Agitation Stop: 01/02/21 19:28 Last Admin: 12/04/20 18:19 Dose: 5 mg Documented by: Hydroxyzine HCl (Hydroxyzine Hcl 25 Mg Tab) 50 mg PO HSZ PRN PRN Reason: Insomnia Stop: 01/02/21 19:15 Hydroxyzine HCl (Hydroxyzine Hcl 25 Mg Tab) 25 mg PO Q4H PRN PRN Reason: Anxiety Stop: 01/02/21 19:15 Lisinopril (Lisinopril 10 Mg Tab) 30 mg PO QAM [facility] Stop: 01/03/21 08:59 Last Admin: 12/07/20 09:06 Dose: 30 mg Documented by: Magnesium Hydroxide (Magnesium Hydroxide Susp 30 Ml Udc) 30 ml PO DAILY PRN PRN Reason: Constipation Stop: 01/02/21 19:15 Miscellaneous (Remove Nicoderm Patch) 1 ea N/A DAILY@0859 [facility] Stop: 01/03/21 08:58 Last Admin: 12/07/20 09:16 Dose: 1 ea Documented by: Nicotine (Nicotine 21 Mg/24 Hr Tdsy) 21 mg TD QAM [facility] Stop: 01/02/21 19:29 Last Admin: 12/07/20 09:06 Dose: 21 mg Documented by: Nicotine Polacrilex (Nicotine Polacrilex 2 Mg Gum) 1 piece MT PRN PRN PRN Reason: Nicotine Withdrawal Stop: 01/02/21 19:15 Last Admin: 12/06/20 13:16 Dose: 1 piece Documented by: Nortriptyline HCl (Nortriptyline Hcl 25 Mg Cap) 50 mg PO BID [facility] Stop: 01/02/21 20:59 Last Admin: 12/07/20 21:27 Dose: 50 mg Documented by: Pantoprazole Sodium (Pantoprazole 40 Mg Tab) 40 mg PO QAM [facility] Stop: 01/03/21 08:59 Last Admin: 12/07/20 09:06 Dose: 40 mg Documented by: Quetiapine Fumarate (Quetiapine Fumarate 25 Mg Tablet) 50 mg PO Q4 PRN PRN Reason: Anxiety/Insomnia Stop: 01/02/21 19:26 Last Admin: 12/07/20 10:37 Dose: 50 mg Documented by: Sodium Chloride (Sodium Chloride 0.65% Na Soln 45 Ml ([place])) 1 - 2 sprays NA PRN PRN PRN Reason: Nasal Dryness/Congestion Stop: 01/02/21 19:15 Sumatriptan Succinate (Sumatriptan Succinate 50 Mg Tab) 50 mg PO DAILY PRN PRN Reason: Migraine Headache Stop: 01/02/21 19:24 Topiramate (Topiramate 50 Mg Tab) 50 mg PO BID [facility] Stop: 01/02/21 20:59 Last Admin: 12/07/20 21:27 Dose: 50 mg Documented by: Mental Health & Subst Abuse Tx Psychiatrist Name of Psychiatrist: Marco Wilson Psychiatrist's Therapist Name of Therapist: Marco Hernández Therapist's [place] [employer] Name of [place] Feeder: [facility] Phone Number for [employer]work Feeder: [phone] Post Discharge Appointments Primary Care Physician Name Of Family Doctor: Ant Fox Primary Care Date of Appointment with PCP: 12/13/20 Time of Appointment with PCP: 3:00 p.m. (check-in at 2:45 p.m.) Provider Appointment Comment: [address] [place] [id number] Specialist Name of Specialist: Dr. Fox Phone Number for Specialist: [phone] Date of Appointment with Specialist: 12/17/20 Time of Appointment with Specialist: 8:15am Specialty Appointment Comment: Rebecca [employer]ates [employer] called pt. pharmacy to ensure pt. has supply of Suboxone Contact Information Discharge Discharge Address: [facility] [address] [place] [id number]
[2020-12-08] MEDS: ARIPiprazole 15 MG TAB PO SCH (09:15)
[2020-12-08] MEDS: FLUTICASONE/VILANTEROL 200/25MCG 14 PUFFS/INHALER INH SCH (09:16)
[2020-12-08] MEDS: BUPRENORPHINE/NALOXONE 2/0.5MG 1 TAB PO SCH (09:16)
[2020-12-08] MEDS: GABAPENTIN 300 MG CAP PO SCH ×3 (09:16→19:50)
[2020-12-08] MEDS: ASPIRIN 81 MG ECTAB PO SCH (09:16)
[2020-12-08] MEDS: cloNIDine HCL 0.1 MG TAB PO SCH ×2 (09:16→15:53)
[2020-12-08] MEDS: PANTOprazole 40 MG TAB PO SCH (09:17)
[2020-12-08] MEDS: TOPIRAMATE 50 MG TAB PO SCH ×2 (09:17→19:52)
[2020-12-08] MEDS: lisinopril 10 MG TAB PO SCH (09:17)
[2020-12-08] MEDS: NORTRIPTYLINE HCL 25 MG CAP PO SCH ×2 (09:17→19:51)
[2020-12-08] MEDS: NICOTINE 21 MG/24 HR TDSY TD SCH (09:24)
[2020-12-08] MEDS: NICOTINE POLACRILEX 2 MG GUM MT PRN (12:35)
[2020-12-08] MEDS: QUEtiapine FUMARATE 25 MG TABLET PO PRN (21:20)
--- NOTE | 2020-12-09 06:58 | Psychiatric Progress Note ---
Date of Service December 09, 2020 Impression / Recommendations Impression 45-year-old single male with a history of bipolar type II, heroin and meth abuse, antisocial and dependent personality traits who presents with auditory hallucinations in the context of medication nonadherence and a relapse on numerous substances 2 months ago. Inpatient treatment is medically necessary due to the severity of symptoms and risk for suicide if discharged. (1) Psychosis: 12/04 -patient reports auditory hallucinations of 6-7 voices that have been going on for the past couple of months, beginning during a time when he relapsed and was using meth, heroin, fentanyl, MDMA, and bath salts. He also reports experiencing auditory hallucinations in the past when using. Differential includes substance-induced psychosis, primary thought disorder, unidentified organic cause, or psychotic mood disorder. If his reports of the timeline of his substance use are accurate, and substance-induced psychosis can be ruled out as he denies using drugs since September. He is not necessarily a reliable historian, however, which makes diagnosis a challenge. -Previous trial of quetiapine which the patient self discontinued quickly due to feeling more tired. He did respond positively to a dose of Haldol 5 mg last night, and will continue this as needed. He had been discussing a trial of aripiprazole with his outpatient clinician, and after review of risks, benefits, and side effects, agreed to initiate that here. Will start 5 mg daily and order fasting labs for baseline on an atypical antipsychotic for tomorrow. -Reviewed outpatient records, will contact Carolina Wilson NP to coordinate care. -Reality testing, address substance use disorders as below, as use is clearly contributing to psychotic symptoms. 12/05 - Pt agreeable with titrating aripiprazole to 10mg qAM starting tomorrow morning. Feeling it has not yet made a difference for reported auditory hallucinations. Pt now admitting that the voices did start while he was still abusing substances, but have persisted despite his reports of sobriety for the past few months. - Fasting glucose and lipid panel reviewed - all values WNL - Coordinate with outpatient psychiatric providers, determine additional opportunities for outpatient supports. - Encourage patient to attend group programming 12/06 - Aripiprazole 10mg qAM. Pt admits to ongoing auditory hallucinations, but states they are mildly improved - Denying SI/HI or safety concerns - Meeting scheduled with manager case for 12/10 - Continue to coordinate aftercare supports with outpatient providers. 12/07 - Pt agreed to titrate aripiprazole to 15mg starting tomorrow morning. Ongoing auditory hallucinations, but volume reduced from 6/10 (on admission) to 2-3/10 within the past few days. - Denying SI/HI - Consider family meeting with mother 12/08 -Abilify increased to 15 mg today, continue titration to effective dose. Auditory hallucinations of voices are improving but still present and impairing functioning. Thought blocking and depression still noted on exam. 12/09 -Increase Abilify to 20 mg daily for tomorrow. (2) Bipolar II disorder: 12/04 -patient reports hypomanic episodes, unclear if these have occurred during periods of sobriety, and have also occurred during SNRI trials. Avoid unopposed antidepressants. -Trial of aripiprazole as above. 12/06 - Titrating aripiprazole as above 12/08 -continue to titrate aripiprazole, continue nortriptyline and gabapentin. 12/09 - Remains depressed, consider a trial of an antidepressant, his mood remains low. He is on nortriptyline, so would need to be mindful of drug drug interactions. Previous medication trials include an SSRI, to SNRIs, and bupropion. Could try mirtazapine, or another SSRI. (3) Opiate abuse, continuous: 12/04 -patient reports using IV heroin and fentanyl most recently in September, currently on Suboxone, continue home dose here and coordinate with outpatient substance abuse treatment providers. May benefit from more robust substance abuse treatment, including NA and AA. 12/06 - Follow-up appointment with Dr. Fox scheduled for Thursday12/17/20 at 8:15 - It was reported that patient has a 1-week supply of Suboxone still at his pharmacy that can be picked up on discharge and used until his follow-up appointment. 12/09 -patient would benefit from participation in/completion of a 12-step program such as NA or AA. We will continue to explore this with him, and provide him with a list of local meetings. (4) Methamphetamine abuse: As above (5) IVDU (intravenous drug user): Follow-up with PCP after discharge for HIV testing Risk Factors Assessment Male: Yes : Yes Do You Have Access To A Gun?: No Health Problems: Yes Mental Health Diagnoses: Yes Substance Use Disorders: Yes Previous Attempt: Yes Previous Attempt; Highly Lethal: Yes Previous Psychiatric Hospitalization: Yes Hopelessness: No Smoker: Yes Protective Factors Assessment : No Responsible for Young Children: No Employed: No Stable Relationships: No Supportive Family: Yes Interval History Identifying Information FLORENCIO LAUREN is a 45-year-old M who currently lives in [place], has a history of bipolar disorder, heroin and methamphetamine abuse, and hepatitis C and was admitted on 12/03/20 19:17 on a 201 voluntary commitment for hallucinations and psychosis. Chief Complaint "Okay I guess". Review of Systems Sleep Information Total Hours of Sleep: 8.5 Meal Information Percent Meal Consumed - Breakfast: 75 Percent Meal Consumed - Lunch: 100 Percent Meal Consumed - Dinner: 100 Nutrition Comment: allowed to sleep Subjective Subjective Patient was seen & assessed and interval progress reviewed with nursing and social work. He reports ongoing difficulty with voices, stating he is "hearing them a lot," and they are telling him that he has caused people to be hurt, that his friends , that he has a tumor growing on his heart, or that he does not have long to live. He states that the voices are focused on things he feels guilty about, stating that "most of my life, I've had a problem with honesty, and they tell me this because it's pay back for my dishonesty." He thinks he has forgiven himself for "a lot of" his past behavior, but not all of it, stating he has "used so many drugs, I've forgotten so many things have done to people." He has only done the first 1 or 2 steps of the 12-step program, and has never processed the impact of his past behavior. He is fearful of the voices because they cause him to feel angry, and he does not want to lose control. He is tolerating the aripiprazole well. Physical Exam Psychiatric Orientation: alert and cooperative Apperance: appropriately dressed and appropriately groomed Eye Contact: + poor eye contact (Mostly looks at the floor, makes brief eye contact) Motor Behavior: steady gait and station and no abnormal motor movements Monotone, delayed Affect: + depressed affect, + constricted affect and mood congruent with affect Mood: + depressed mood Thought Process: goal directed thought process Thought Content: + preoccupation (With statements the voices are making), + persecution, + worthlessness, + guilt and + self deprecation Suicidal Thoughts: denies suicidal thoughts Homicidal Thoughts: denies homicidal thoughts Hallucinations: + auditory hallucinations Cognition: attention grossly intact and language grossly intact Insight: + fair insight Judgement: + fair judgement Vital Signs (Past 24 Hours) Last Vital Signs Temp 36.3 C L 12/09/20 06:40 Pulse 88 12/09/20 06:41 Resp 16 12/09/20 06:40 BP 109/68 12/09/20 06:41 Pulse Ox 94 12/03/20 17:48 Results & Data ([facility]) Current Inpatient Medications Current Inpatient Medications: Current Inpatient Medications Acetaminophen (Acetaminophen 325 Mg Tab) 650 mg PO Q4H PRN PRN Reason: Headache or Minor Fever Stop: 01/02/21 19:15 Al Hydrox/Mg Hydrox/Simethicone (Aluminum/Magnesium Susp 30 Ml Udc) 30 ml PO Q4H PRN PRN Reason: GI Upset Stop: 01/02/21 19:15 Last Admin: 12/08/20 21:54 Dose: 30 ml Documented by: Albuterol (Albuterol Hfa 8 Gm Inhaler) 1 puffs INH QID PRN; Protocol PRN Reason: sob Stop: 01/02/21 19:23 [facility] ([facility] 15 Mg Tab) [facility] [place]: 01/07/21 08:59 Last Admin: 12/08/20 09:15 Dose: 15 mg Documented by: Aspirin (Aspirin 81 Mg Ectab) [facility] Stop: 01/03/21 08:59 Last Admin: 12/08/20 09:16 Dose: 81 mg Documented by: Benztropine Mesylate (Benztropine Mesylate 1 Mg Tab) 1 mg PO Q6 PRN PRN Reason: Muscle Spasm Stop: 01/02/21 19:28 Bismuth Subsalicylate (Bismuth Subsalicylate Liqd 236 Ml) 15 ml PO PRN PRN PRN Reason: Loose Stool Stop: 01/02/21 19:15 Buprenorphine/Naloxone (Buprenorphine/Naloxone 2/0.5mg 1 Tab) 1 tab PO DAILY [facility] Stop: 01/03/21 11:29 Last Admin: 12/08/20 09:16 Dose: 1 tab Documented by: Clonidine HCl (Clonidine Hcl 0.1 Mg Tab) 0.1 mg PO 0900,1600 [facility] Stop: 01/03/21 08:59 Last Admin: 12/08/20 15:53 Dose: 0.1 mg Documented by: Fluticasone/Vilanterol (Fluticasone/Vilanterol 200/25mcg 14 Puffs/Inhaler) 1 puffs INH DAILY [facility]; Protocol Stop: 01/03/21 08:59 Last Admin: 12/08/20 09:16 Dose: 1 puffs Documented by: Furosemide (Furosemide 20 Mg Tab) 20 mg PO DAILY PRN PRN Reason: Fluid Retention Stop: 01/02/21 19:23 Gabapentin (Gabapentin 300 Mg Cap) 600 mg PO QAM [facility] Stop: 01/03/21 08:59 Last Admin: 12/08/20 09:16 Dose: 600 mg Documented by: Gabapentin (Gabapentin 300 Mg Cap) 900 mg PO 1400,2100 [facility] Stop: 01/02/21 20:59 Last Admin: 12/08/20 19:50 Dose: 900 mg Documented by: Haloperidol (Haloperidol 5 Mg Tab) 5 mg PO Q6 PRN PRN Reason: Agitation Stop: 01/02/21 19:28 Last Admin: 12/04/20 18:19 Dose: 5 mg Documented by: Hydroxyzine HCl (Hydroxyzine Hcl 25 Mg Tab) 50 mg PO HSZ PRN PRN Reason: Insomnia Stop: 01/02/21 19:15 Hydroxyzine HCl (Hydroxyzine Hcl 25 Mg Tab) 25 mg PO Q4H PRN PRN Reason: Anxiety Stop: 01/02/21 19:15 Lisinopril (Lisinopril 10 Mg Tab) 30 mg PO QAM [facility] Stop: 01/03/21 08:59 Last Admin: 12/08/20 09:17 Dose: 30 mg Documented by: Magnesium Hydroxide (Magnesium Hydroxide Susp 30 Ml Udc) 30 ml PO DAILY PRN PRN Reason: Constipation Stop: 01/02/21 19:15 Miscellaneous (Remove Nicoderm Patch) 1 ea N/A DAILY@0859 [facility] Stop: 01/03/21 08:58 Last Admin: 12/08/20 09:24 Dose: 1 ea Documented by: Nicotine (Nicotine 21 Mg/24 Hr Tdsy) 21 mg TD QAM [facility] Stop: 01/02/21 19:29 Last Admin: 12/08/20 09:24 Dose: 21 mg Documented by: Nicotine Polacrilex (Nicotine Polacrilex 2 Mg Gum) 1 piece MT PRN PRN PRN Reason: Nicotine Withdrawal Stop: 01/02/21 19:15 Last Admin: 12/08/20 12:35 Dose: 1 piece Documented by: Nortriptyline HCl (Nortriptyline Hcl 25 Mg Cap) 50 mg PO BID [facility] Stop: 01/02/21 20:59 Last Admin: 12/08/20 19:51 Dose: 50 mg Documented by: Pantoprazole Sodium (Pantoprazole 40 Mg Tab) 40 mg PO QAM [facility] Stop: 01/03/21 08:59 Last Admin: 12/08/20 09:17 Dose: 40 mg Documented by: Quetiapine Fumarate (Quetiapine Fumarate 25 Mg Tablet) 50 mg PO Q4 PRN PRN Reason: Anxiety/Insomnia Stop: 01/02/21 19:26 Last Admin: 12/08/20 21:20 Dose: 50 mg Documented by: Sodium Chloride (Sodium Chloride 0.65% Na Soln 45 Ml ([place])) 1 - 2 sprays NA PRN PRN PRN Reason: Nasal Dryness/Congestion Stop: 01/02/21 19:15 Sumatriptan Succinate (Sumatriptan Succinate 50 Mg Tab) 50 mg PO DAILY PRN PRN Reason: Migraine Headache Stop: 01/02/21 19:24 Topiramate (Topiramate 50 Mg Tab) 50 mg PO BID [facility] Stop: 01/02/21 20:59 Last Admin: 12/08/20 19:52 Dose: 50 mg Documented by: Mental Health & Subst Abuse Tx Psychiatrist Name of Psychiatrist: Marco Wilson Psychiatrist's Therapist Name of Therapist: Marco Hernández Therapist's Gas Leak Tester Name of Gas Leak Tester: [facility] Phone Number for Gas Leak Tester: [phone] Post Discharge Appointments Primary Care Physician Name Of Family Doctor: Ant Fox [facility] Date of Appointment with PCP: 12/13/20 Time of Appointment with PCP: 3:00 p.m. (check-in at 2:45 p.m.) Provider Appointment Comment: [address] [place] [id number] Specialist Name of Specialist: Dr. Fox Phone Number for Specialist: [phone] Date of Appointment with Specialist: 12/17/20 Time of Appointment with Specialist: 8:15am Specialty Appointment Comment: Rebecca cates [facility] called pt. pharmacy to ensure pt. has supply of Suboxone Contact Information Discharge Discharge Address: [address] [place] [address]
[2020-12-09] MEDS: ASPIRIN 81 MG ECTAB PO SCH (09:06)
[2020-12-09] MEDS: ARIPiprazole 15 MG TAB PO SCH (09:06)
[2020-12-09] MEDS: BUPRENORPHINE/NALOXONE 2/0.5MG 1 TAB PO SCH (09:06)
[2020-12-09] MEDS: lisinopril 10 MG TAB PO SCH (09:07)
[2020-12-09] MEDS: cloNIDine HCL 0.1 MG TAB PO SCH ×2 (09:07→16:52)
[2020-12-09] MEDS: FLUTICASONE/VILANTEROL 200/25MCG 14 PUFFS/INHALER INH SCH (09:07)
[2020-12-09] MEDS: GABAPENTIN 300 MG CAP PO SCH ×3 (09:07→20:26)
[2020-12-09] MEDS: TOPIRAMATE 50 MG TAB PO SCH ×2 (09:08→20:27)
[2020-12-09] MEDS: PANTOprazole 40 MG TAB PO SCH (09:08)
[2020-12-09] MEDS: NORTRIPTYLINE HCL 25 MG CAP PO SCH ×2 (09:08→20:27)
[2020-12-09] MEDS: NICOTINE 21 MG/24 HR TDSY TD SCH (09:14)
[2020-12-09] MEDS: MAGNESIUM HYDROXIDE SUSP 30 ML UDC PO PRN (12:48)
[2020-12-10] MEDS: FLUTICASONE/VILANTEROL 200/25MCG 14 PUFFS/INHALER INH SCH (08:19)
[2020-12-10] MEDS: BUPRENORPHINE/NALOXONE 2/0.5MG 1 TAB PO SCH (08:20)
[2020-12-10] MEDS: ARIPiprazole 10 MG TAB PO SCH (08:20)
[2020-12-10] MEDS: GABAPENTIN 300 MG CAP PO SCH ×3 (08:21→21:55)
[2020-12-10] MEDS: ASPIRIN 81 MG ECTAB PO SCH (08:21)
[2020-12-10] MEDS: cloNIDine HCL 0.1 MG TAB PO SCH ×2 (08:21→15:57)
[2020-12-10] MEDS: lisinopril 10 MG TAB PO SCH (08:21)
[2020-12-10] MEDS: PANTOprazole 40 MG TAB PO SCH (08:22)
[2020-12-10] MEDS: TOPIRAMATE 50 MG TAB PO SCH ×2 (08:22→21:55)
[2020-12-10] MEDS: NORTRIPTYLINE HCL 25 MG CAP PO SCH ×2 (08:22→21:55)
[2020-12-10] MEDS: NICOTINE 21 MG/24 HR TDSY TD SCH (08:23)
--- NOTE | 2020-12-10 09:27 | Psychiatric Progress Note ---
Date of Service December 10, 2020 Impression / Recommendations Impression 45-year-old single male with a history of bipolar type II, heroin and meth abuse, antisocial and dependent personality traits who presents with auditory hallucinations in the context of medication nonadherence and a relapse on numerous substances 2 months ago. Inpatient treatment is medically necessary due to the severity of symptoms and risk for suicide if discharged. (1) Psychosis: 12/04 -patient reports auditory hallucinations of 6-7 voices that have been going on for the past couple of months, beginning during a time when he relapsed and was using meth, heroin, fentanyl, MDMA, and bath salts. He also reports experiencing auditory hallucinations in the past when using. Differential includes substance-induced psychosis, primary thought disorder, unidentified organic cause, or psychotic mood disorder. If his reports of the timeline of his substance use are accurate, and substance-induced psychosis can be ruled out as he denies using drugs since September. He is not necessarily a reliable historian, however, which makes diagnosis a challenge. -Previous trial of quetiapine which the patient self discontinued quickly due to feeling more tired. He did respond positively to a dose of Haldol 5 mg last night, and will continue this as needed. He had been discussing a trial of aripiprazole with his outpatient clinician, and after review of risks, benefits, and side effects, agreed to initiate that here. Will start 5 mg daily and order fasting labs for baseline on an atypical antipsychotic for tomorrow. -Reviewed outpatient records, will contact Carolina Wilson NP to coordinate care. -Reality testing, address substance use disorders as below, as use is clearly contributing to psychotic symptoms. 12/05 - Pt agreeable with titrating aripiprazole to 10mg qAM starting tomorrow morning. Feeling it has not yet made a difference for reported auditory hallucinations. Pt now admitting that the voices did start while he was still abusing substances, but have persisted despite his reports of sobriety for the past few months. - Fasting glucose and lipid panel reviewed - all values WNL - Coordinate with outpatient psychiatric providers, determine additional opportunities for outpatient supports. - Encourage patient to attend group programming 12/06 - Aripiprazole 10mg qAM. Pt admits to ongoing auditory hallucinations, but states they are mildly improved - Denying SI/HI or safety concerns - Meeting scheduled with bilingual patient support caseworker for 12/10 - Continue to coordinate aftercare supports with outpatient providers. 12/07 - Pt agreed to titrate aripiprazole to 15mg starting tomorrow morning. Ongoing auditory hallucinations, but volume reduced from 6/10 (on admission) to 2-3/10 within the past few days. - Denying SI/HI - Consider family meeting with mother 12/08 -Abilify increased to 15 mg today, continue titration to effective dose. Auditory hallucinations of voices are improving but still present and impairing functioning. Thought blocking and depression still noted on exam. 12/09 -Increase Abilify to 20 mg daily for tomorrow. 12/10 - Continue aripiprazole 20mg qAM. Adding duloxetine 20mg qAM with plan for slow titration as tolerated given bipolar disorder diagnosis - Met with bilingual patient support caseworker this morning (2) Bipolar II disorder: 12/04 -patient reports hypomanic episodes, unclear if these have occurred during periods of sobriety, and have also occurred during SNRI trials. Avoid unopposed antidepressants. -Trial of aripiprazole as above. 12/06 - Titrating aripiprazole as above 12/08 -continue to titrate aripiprazole, continue nortriptyline and gabapentin. 12/09 - Remains depressed, consider a trial of an antidepressant, his mood remains low. He is on nortriptyline, so would need to be mindful of drug drug interactions. Previous medication trials include an SSRI, to SNRIs, and bupropion. Could try mirtazapine, or another SSRI. 12/10 - Continue aripiprazole 20mg daily. Discussed options for antidepressant medications, patient requesting retrial of duloxetine. Discussed starting at low dose with very slow titration given bipolar diagnosis. - Met with bilingual patient support caseworker this morning (3) Opiate abuse, continuous: 12/04 -patient reports using IV heroin and fentanyl most recently in September, currently on Suboxone, continue home dose here and coordinate with outpatient substance abuse treatment providers. May benefit from more robust substance abuse treatment, including NA and AA. 12/06 - Follow-up appointment with Dr. Fox scheduled for Thursday12/17/20 at 8:15 - It was reported that patient has a 1-week supply of Suboxone still at his pharmacy that can be picked up on discharge and used until his follow-up appointment. 12/09 -patient would benefit from participation in/completion of a 12-step program such as NA or AA. We will continue to explore this with him, and provide him with a list of local meetings. (4) Methamphetamine abuse: As above (5) IVDU (intravenous drug user): Follow-up with PCP after discharge for HIV testing Risk Factors Assessment Male: Yes : Yes Do You Have Access To A Gun?: No Health Problems: Yes Mental Health Diagnoses: Yes Substance Use Disorders: Yes Previous Attempt: Yes Previous Attempt; Highly Lethal: Yes Previous Psychiatric Hospitalization: Yes Hopelessness: No Smoker: Yes Protective Factors Assessment : No Responsible for Young Children: No Employed: No Stable Relationships: No Supportive Family: Yes Interval History Identifying Information FLORENCIO LAUREN is a 45-year-old M who currently lives in [place], has a history of bipolar disorder, heroin and methamphetamine abuse, and hepatitis C and was admitted on 12/03/20 19:17 on a 201 voluntary commitment for hallucinations and psychosis. Chief Complaint "Um, I've been ok." Review of Systems Notes Constitutional: denied Cardiovascular: denied Respiratory: denied Gastrointestinal: denied Neurological: denied Psychiatric: denies symptoms other than stated above Total of at least 10 systems reviewed, pertinent positives as above and in HPI. Sleep Information Total Hours of Sleep: 7.25 Meal Information Percent Meal Consumed - Breakfast: 100 Percent Meal Consumed - Lunch: 100 Percent Meal Consumed - Dinner: 100 Nutrition Comment: allowed to sleep Subjective Subjective Patient was seen & assessed and interval progress reviewed with treatment team. Staff report the patient has been a bit more engaged with group programming over the weekend and it utilizing peers for support and a source of distraction from ongoing auditory hallucinations. Pt had a family meeting with his mother this weekend where he reportedly processed a lot of guilt related to his substance use. Pt was seen today to assess progress since admission. He shares that he feels the aripiprazole has been helpful to reduce the volume of the voices, although the continue to be present. He admits that he has been struggling with guilt and the impact of his substance abuse on his supports. He states he is motivated for outpatient treatment. His mood also continues to be low related to the voices "telling me constantly that I'm a bad person." This provider suggested the idea of adding an antidepressant medication, which patient was interested in. He states he had been on duloxetine in the past, but noticed elevated mood he described as "kind of manic." He also admits, however, that "I was not taking my other medications the way I was supposed to." When presented with the options, patient admits his desire would be to retry duloxetine as opposed to a new agent. Pt denies SI and denied other concerns today. Physical Exam Psychiatric Orientation: alert, oriented x 3 and cooperative Apperance: appropriately dressed, appropriately groomed and appeared stated age Eye Contact: + fair eye contact Motor Behavior: steady gait and station and no abnormal motor movements Speech: normal rate/rhythm/volume of speech (soft volume, monotone) Affect: + depressed affect and + flat affect Mood: + depressed mood Thought Process: goal directed thought process Thought Content: reality based without delusions, + hopelessness and + guilt Suicidal Thoughts: denies suicidal thoughts Homicidal Thoughts: denies homicidal thoughts Hallucinations: + auditory hallucinations Cognition: attention grossly intact and language grossly intact Estimated Intelligence: + below average estimated intelligence Insight: + fair insight Judgement: + fair judgement Vital Signs (Past 24 Hours) Last Vital Signs Temp 36.3 C L 12/10/20 06:42 Pulse 83 12/10/20 06:42 Resp 16 12/10/20 06:42 BP 108/71 12/10/20 06:42 Pulse Ox 94 12/03/20 17:48 Results & Data ([facility]) Current Inpatient Medications Current Inpatient Medications: Current Inpatient Medications Acetaminophen (Acetaminophen 325 Mg Tab) 650 mg PO Q4H PRN PRN Reason: Headache or Minor Fever Stop: 01/02/21 19:15 Al Hydrox/Mg Hydrox/Simethicone (Aluminum/Magnesium Susp 30 Ml Udc) 30 ml PO Q4H PRN PRN Reason: GI Upset Stop: 01/02/21 19:15 Last Admin: 12/08/20 21:54 Dose: 30 ml Documented by: Albuterol (Albuterol Hfa 8 Gm Inhaler) 1 puffs INH QID PRN; Protocol PRN Reason: sob Stop: 01/02/21 19:23 Aripiprazole (Aripiprazole 10 Mg Tab) 20 mg PO QAM [facility] Stop: 01/09/21 08:59 Last Admin: 12/10/20 08:20 Dose: 20 mg Documented by: Aspirin (Aspirin 81 Mg Ectab) 81 mg PO QAM [facility] Stop: 01/03/21 08:59 Last Admin: 12/10/20 08:21 Dose: 81 mg Documented by: Benztropine Mesylate (Benztropine Mesylate 1 Mg Tab) 1 mg PO Q6 PRN PRN Reason: Muscle Spasm Stop: 01/02/21 19:28 Bismuth Subsalicylate (Bismuth Subsalicylate Liqd 236 Ml) 15 ml PO PRN PRN PRN Reason: Loose Stool Stop: 01/02/21 19:15 Buprenorphine/Naloxone (Buprenorphine/Naloxone 2/0.5mg 1 Tab) 1 tab PO DAILY [facility] Stop: 01/03/21 11:29 Last Admin: 12/10/20 08:20 Dose: 1 tab Documented by: Clonidine HCl (Clonidine Hcl 0.1 Mg Tab) 0.1 mg PO 0900,1600 [facility] Stop: 01/03/21 08:59 Last Admin: 12/10/20 08:21 Dose: 0.1 mg Documented by: Duloxetine HCl (Duloxetine Hcl 20 Mg Cap) 20 mg PO QAM [facility] Stop: 01/09/21 09:29 Fluticasone/Vilanterol (Fluticasone/Vilanterol 200/25mcg 14 Puffs/Inhaler) 1 puffs INH DAILY [facility]; Protocol Stop: 01/03/21 08:59 Last Admin: 12/10/20 08:19 Dose: 1 puffs Documented by: Furosemide (Furosemide 20 Mg Tab) 20 mg PO DAILY PRN PRN Reason: Fluid Retention Stop: 01/02/21 19:23 Gabapentin (Gabapentin 300 Mg Cap) 600 mg PO QAM [facility] Stop: 01/03/21 08:59 Last Admin: 12/10/20 08:21 Dose: 600 mg Documented by: Gabapentin (Gabapentin 300 Mg Cap) 900 mg PO 1400,2100 [facility] Stop: 01/02/21 20:59 Last Admin: 12/09/20 20:26 Dose: 900 mg Documented by: Haloperidol (Haloperidol 5 Mg Tab) 5 mg PO Q6 PRN PRN Reason: Agitation Stop: 01/02/21 19:28 Last Admin: 12/04/20 18:19 Dose: 5 mg Documented by: Hydroxyzine HCl (Hydroxyzine Hcl 25 Mg Tab) 50 mg PO HSZ PRN PRN Reason: Insomnia Stop: 01/02/21 19:15 Hydroxyzine HCl (Hydroxyzine Hcl 25 Mg Tab) 25 mg PO Q4H PRN PRN Reason: Anxiety Stop: 01/02/21 19:15 Lisinopril (Lisinopril 10 Mg Tab) 30 mg PO QAM [facility] Stop: 01/03/21 08:59 Last Admin: 12/10/20 08:21 Dose: 30 mg Documented by: Magnesium Hydroxide (Magnesium Hydroxide Susp 30 Ml Udc) 30 ml PO DAILY PRN PRN Reason: Constipation Stop: 01/02/21 19:15 Last Admin: 12/09/20 12:48 Dose: 30 ml Documented by: Miscellaneous (Remove Nicoderm Patch) 1 ea N/A DAILY@[id number] [facility] Stop: 01/03/21 08:58 Last Admin: 12/10/20 08:33 Dose: 1 ea Documented by: Nicotine (Nicotine 21 Mg/24 Hr Tdsy) 21 mg TD QAM [facility] Stop: 01/02/21 19:29 Last Admin: 12/10/20 08:23 Dose: Not Given Documented by: Nicotine Polacrilex (Nicotine Polacrilex 2 Mg Gum) 1 piece MT PRN PRN PRN Reason: Nicotine Withdrawal Stop: 01/02/21 19:15 Last Admin: 12/08/20 12:35 Dose: 1 piece Documented by: Nortriptyline HCl (Nortriptyline Hcl 25 Mg Cap) 50 mg PO BID [facility] Stop: 01/02/21 20:59 Last Admin: 12/10/20 08:22 Dose: 50 mg Documented by: Pantoprazole Sodium (Pantoprazole 40 Mg Tab) 40 mg PO QAM [facility] Stop: 01/03/21 08:59 Last Admin: 12/10/20 08:22 Dose: 40 mg Documented by: Quetiapine Fumarate (Quetiapine Fumarate 25 Mg Tablet) 50 mg PO Q4 PRN PRN Reason: Anxiety/Insomnia Stop: 01/02/21 19:26 Last Admin: 12/08/20 21:20 Dose: 50 mg Documented by: Sodium Chloride (Sodium Chloride 0.65% Na Soln 45 Ml ([place])) 1 - 2 sprays NA PRN PRN PRN Reason: Nasal Dryness/Congestion Stop: 01/02/21 19:15 Sumatriptan Succinate (Sumatriptan Succinate 50 Mg Tab) 50 mg PO DAILY PRN PRN Reason: Migraine Headache Stop: 01/02/21 19:24 Topiramate (Topiramate 50 Mg Tab) 50 mg PO BID [facility] Stop: 01/02/21 20:59 Last Admin: 12/10/20 08:22 Dose: 50 mg Documented by: Mental Health & Subst Abuse Tx Psychiatrist Name of Psychiatrist: Marco Wilson Psychiatrist's Therapist Name of Therapist: Marco Hernández Therapist's Floral Department Specialist Name of Floral Department Specialist: [facility] Phone Number for Floral Department Specialist: [phone] Post Discharge Appointments Primary Care Physician Name Of Family Doctor: Ant Fox Primary Care Date of Appointment with PCP: 12/13/20 Time of Appointment with PCP: 3:00 p.m. (check-in at 2:45 p.m.) Provider Appointment Comment: [address] [place] [id number] Specialist Name of Specialist: Dr. Fox Phone Number for Specialist: [phone] Date of Appointment with Specialist: 12/17/20 Time of Appointment with Specialist: 8:15am Specialty Appointment Comment: Rebecca Land called pt. pharmacy to ensure pt. has supply of Suboxone Other #1: Name of Aftercare Appointment: ANTHONY Pereira Phone Number of Aftercare Appointment: [phone] Aftercare Appointment Comment: Follow up as required #2: Name of Aftercare Appointment: [facility] Chava Goodman Phone Number of Aftercare Appointment: [phone] Aftercare Appointment Comment: Follow up as required #3: Name of Aftercare Appointment: Shanda PINEDA Phone Number of Aftercare Appointment: Date of Aftercare Appointment: 12/17/20 Time of Aftercare Appointment: 9am-12 Contact Information Discharge Discharge Address: [facility] [address] [place] [id number]
[2020-12-10] MEDS: DULoxetine HCL 20 MG CAP PO SCH (09:50)
[2020-12-10] MEDS: MAGNESIUM HYDROXIDE SUSP 30 ML UDC PO PRN ×2 (15:29→17:50)
[2020-12-11] MEDS: cloNIDine HCL 0.1 MG TAB PO SCH ×2 (09:44→15:46)
[2020-12-11] MEDS: BUPRENORPHINE/NALOXONE 2/0.5MG 1 TAB PO SCH (09:44)
[2020-12-11] MEDS: GABAPENTIN 300 MG CAP PO SCH ×3 (09:45→21:17)
[2020-12-11] MEDS: FLUTICASONE/VILANTEROL 200/25MCG 14 PUFFS/INHALER INH SCH (09:45)
[2020-12-11] MEDS: DULoxetine HCL 20 MG CAP PO SCH (09:45)
[2020-12-11] MEDS: lisinopril 10 MG TAB PO SCH (09:46)
[2020-12-11] MEDS: PANTOprazole 40 MG TAB PO SCH (09:47)
[2020-12-11] MEDS: NORTRIPTYLINE HCL 25 MG CAP PO SCH ×2 (09:47→21:18)
[2020-12-11] MEDS: TOPIRAMATE 50 MG TAB PO SCH ×2 (09:48→21:18)
[2020-12-11] MEDS: ARIPiprazole 10 MG TAB PO SCH (09:49)
[2020-12-11] MEDS: ASPIRIN 81 MG ECTAB PO SCH (09:49)
[2020-12-11] MEDS: NICOTINE 21 MG/24 HR TDSY TD SCH (09:59)
--- NOTE | 2020-12-11 10:10 | Psychiatric Progress Note ---
Date of Service December 11, 2020 Impression / Recommendations Impression 45-year-old single male with a history of bipolar type II, heroin and meth abuse, antisocial and dependent personality traits who presents with auditory hallucinations in the context of medication nonadherence and a relapse on numerous substances 2 months ago. Inpatient treatment is medically necessary due to the severity of symptoms and risk for suicide if discharged. (1) Psychosis: 12/04 -patient reports auditory hallucinations of 6-7 voices that have been going on for the past couple of months, beginning during a time when he relapsed and was using meth, heroin, fentanyl, MDMA, and bath salts. He also reports experiencing auditory hallucinations in the past when using. Differential includes substance-induced psychosis, primary thought disorder, unidentified organic cause, or psychotic mood disorder. If his reports of the timeline of his substance use are accurate, and substance-induced psychosis can be ruled out as he denies using drugs since September. He is not necessarily a reliable historian, however, which makes diagnosis a challenge. -Previous trial of quetiapine which the patient self discontinued quickly due to feeling more tired. He did respond positively to a dose of Haldol 5 mg last night, and will continue this as needed. He had been discussing a trial of aripiprazole with his outpatient clinician, and after review of risks, benefits, and side effects, agreed to initiate that here. Will start 5 mg daily and order fasting labs for baseline on an atypical antipsychotic for tomorrow. -Reviewed outpatient records, will contact Carolina Wilson NP to coordinate care. -Reality testing, address substance use disorders as below, as use is clearly contributing to psychotic symptoms. 12/05 - Pt agreeable with titrating aripiprazole to 10mg qAM starting tomorrow morning. Feeling it has not yet made a difference for reported auditory hallucinations. Pt now admitting that the voices did start while he was still abusing substances, but have persisted despite his reports of sobriety for the past few months. - Fasting glucose and lipid panel reviewed - all values WNL - Coordinate with outpatient psychiatric providers, determine additional opportunities for outpatient supports. - Encourage patient to attend group programming 12/06 - Aripiprazole 10mg qAM. Pt admits to ongoing auditory hallucinations, but states they are mildly improved - Denying SI/HI or safety concerns - Meeting scheduled with outpatient case manager for 12/10 - Continue to coordinate aftercare supports with outpatient providers. 12/07 - Pt agreed to titrate aripiprazole to 15mg starting tomorrow morning. Ongoing auditory hallucinations, but volume reduced from 6/10 (on admission) to 2-3/10 within the past few days. - Denying SI/HI - Consider family meeting with mother 12/08 -Abilify increased to 15 mg today, continue titration to effective dose. Auditory hallucinations of voices are improving but still present and impairing functioning. Thought blocking and depression still noted on exam. 12/09 -Increase Abilify to 20 mg daily for tomorrow. 12/10 - Continue aripiprazole 20mg qAM. Adding duloxetine 20mg qAM with plan for slow titration as tolerated given bipolar disorder diagnosis - Met with outpatient case manager this morning 12/11 - Continue medications as above - Solidify outpatient referrals, patient considering individual CBT therapist for mental health in addition to his substance abuse treatment - Pt denies SI, hallucinations are ongoing but at a more manageable volume per patient (2) Bipolar II disorder: 12/04 -patient reports hypomanic episodes, unclear if these have occurred during periods of sobriety, and have also occurred during SNRI trials. Avoid unopposed antidepressants. -Trial of aripiprazole as above. 12/06 - Titrating aripiprazole as above 12/08 -continue to titrate aripiprazole, continue nortriptyline and gabapentin. 12/09 - Remains depressed, consider a trial of an antidepressant, his mood remains low. He is on nortriptyline, so would need to be mindful of drug drug interactions. Previous medication trials include an SSRI, to SNRIs, and bupropion. Could try mirtazapine, or another SSRI. 12/10 - Continue aripiprazole 20mg daily. Discussed options for antidepressant medications, patient requesting retrial of duloxetine. Discussed starting at low dose with very slow titration given bipolar diagnosis. - Met with outpatient case manager this morning 12/11 - Continue aripiprazole 20mg and duloxetine 20mg daily - consider titration of medications as tolerated/indicated (3) Opiate abuse, continuous: 12/04 -patient reports using IV heroin and fentanyl most recently in September, currently on Suboxone, continue home dose here and coordinate with outpatient substance abuse treatment providers. May benefit from more robust substance abuse treatment, including NA and AA. 12/06 - Follow-up appointment with Dr. Fox scheduled for Thursday12/17/20 at 8:15 - It was reported that patient has a 1-week supply of Suboxone still at his pharmacy that can be picked up on discharge and used until his follow-up appointment. 12/09 -patient would benefit from participation in/completion of a 12-step program such as NA or AA. We will continue to explore this with him, and provide him with a list of local meetings. 12/11 - Pt open to NA/AA meetings, has also been scheduled for IOP through [facility] (4) Methamphetamine abuse: As above (5) IVDU (intravenous drug user): Follow-up with PCP after discharge for HIV testing Risk Factors Assessment Male: Yes : Yes Do You Have Access To A Gun?: No Health Problems: Yes Mental Health Diagnoses: Yes Substance Use Disorders: Yes Previous Attempt: Yes Previous Attempt; Highly Lethal: Yes Previous Psychiatric Hospitalization: Yes Hopelessness: No Smoker: Yes Protective Factors Assessment : No Responsible for Young Children: No Employed: No Stable Relationships: No Supportive Family: Yes Interval History Identifying Information FLORENCIO LAUREN is a 45-year-old M who currently lives in [place], has a history of bipolar disorder, heroin and methamphetamine abuse, and hepatitis C a nd was admitted on 12/03/20 19:17 on a 201 voluntary commitment for hallucinations and psychosis. Chief Complaint "Um, I'm feeling fine." Review of Systems Notes Constitutional: denied Cardiovascular: denied Respiratory: denied Gastrointestinal: denied Neurological: denied Psychiatric: denies symptoms other than stated above Total of at least 10 systems reviewed, pertinent positives as above and in HPI. Sleep Information Total Hours of Sleep: 6.5 Meal Information Percent Meal Consumed - Breakfast: 100 Percent Meal Consumed - Lunch: 100 Percent Meal Consumed - Dinner: 100 Nutrition Comment: allowed to sleep Subjective Subjective Patient was seen & assessed and interval progress reviewed with nursing and social work. Staff report the patient has been attending group programming. He intermittently reports more distressing hallucinations, but states they are improved overall from admission. Pt rated his mood a 6/10 and "ok" yesterday. Pt was seen today to assess progress since admission. He reports that he had a positive meeting with his outpatient case manager yesterday. He states he was nervous to disclose that he had relapsed and they spend a great deal of their conversation discussing this, per his reports. He continues to be open to expanding his outpatient supports and reports motivation to maintain sobriety. Pt denied SI and states the voices are quieter overall, but still make derogatory comments. Pt does admit to some improvement in his mood, which is evident as eye contact is improved and he is smiling more during our conversation today. Pt denied other needs at this time. Physical Exam Psychiatric Orientation: alert, oriented x 3 and cooperative Apperance: appropriately dressed, appropriately groomed and appeared stated age Eye Contact: + fair eye contact (often staring at the ground) Motor Behavior: steady gait and station and no abnormal motor movements Speech: normal rate/rhythm/volume of speech Affect: + blunted affect (still subdued overall, but more frequent rosalind ghtening/smiling) Mood: no depressed mood ("fine") Thought Process: goal directed thought process and clear/coherent thought process Thought Content: no hopelessness and no worthlessness primarily reality based, though struggles intermittently with derogatory voices Suicidal Thoughts: denies suicidal thoughts and denies suicidal intent Homicidal Thoughts: denies homicidal thoughts Hallucinations: + auditory hallucinations (lower volume, mildly less distressing); no visual hallucinations Cognition: attention grossly intact and language grossly intact Insight: + fair insight Judgement: + fair judgement Vital Signs (Past 24 Hours) Last Vital Signs Temp 36.4 C L 12/11/20 06:41 Pulse 89 12/11/20 06:41 Resp 16 12/11/20 06:41 BP 123/66 12/11/20 06:41 Pulse Ox 94 12/03/20 17:48 Results & Data ([facility]) Current Inpatient Medications Current Inpatient Medications: Current Inpatient Medications Acetaminophen (Acetaminophen 325 Mg Tab) 650 mg PO Q4H PRN PRN Reason: Headache or Minor Fever Stop: 01/02/21 19:15 Al Hydrox/Mg Hydrox/Simethicone (Aluminum/Magnesium Susp 30 Ml Udc) 30 ml PO Q4H PRN PRN Reason: GI Upset Stop: 01/02/21 19:15 Last Admin: 12/08/20 21:54 Dose: 30 ml Documented by: Albuterol (Albuterol Hfa 8 Gm Inhaler) 1 puffs INH QID PRN; Protocol PRN Reason: sob Stop: 01/02/21 19:23 Aripiprazole (Aripiprazole 10 Mg Tab) 20 mg PO QAM [facility] Stop: 01/09/21 08:59 Last Admin: 12/10/20 08:20 Dose: 20 mg Documented by: Aspirin (Aspirin 81 Mg Ectab) 81 mg PO QAM [facility] Stop: 01/03/21 08:59 Last Admin: 12/10/20 08:21 Dose: 81 mg Documented by: Benztropine Mesylate (Benztropine Mesylate 1 Mg Tab) 1 mg PO Q6 PRN PRN Reason: Muscle Spasm Stop: 01/02/21 19:28 Bismuth Subsalicylate (Bismuth Subsalicylate Liqd 236 Ml) 15 ml PO PRN PRN PRN Reason: Loose Stool Stop: 01/02/21 19:15 Buprenorphine/Naloxone (Buprenorphine/Naloxone 2/0.5mg 1 Tab) 1 tab PO DAILY [facility] Stop: 01/03/21 11:29 Last Admin: 12/10/20 08:20 Dose: 1 tab Documented by: Clonidine HCl (Clonidine Hcl 0.1 Mg Tab) 0.1 mg PO 0900,1600 [facility] Stop: 01/03/21 08:59 Last Admin: 12/10/20 15:57 Dose: 0.1 mg Documented by: Duloxetine HCl (Duloxetine Hcl 20 Mg Cap) 20 mg PO QAM [facility] Stop: 01/09/21 09:29 Last Admin: 12/10/20 09:50 Dose: 20 mg Documented by: Fluticasone/Vilanterol (Fluticasone/Vilanterol 200/25mcg 14 Puffs/Inhaler) 1 puffs INH DAILY [facility]; Protocol Stop: 01/03/21 08:59 Last Admin: 12/10/20 08:19 Dose: 1 puffs Documented by: Furosemide (Furosemide 20 Mg Tab) 20 mg PO DAILY PRN PRN Reason: Fluid Retention Stop: 01/02/21 19:23 Gabapentin (Gabapentin 300 Mg Cap) 600 mg PO QAM [facility] Stop: 01/03/21 08:59 Last Admin: 12/10/20 08:21 Dose: 600 mg Documented by: Gabapentin (Gabapentin 300 Mg Cap) 900 mg PO 1400,2100 [facility] Stop: 01/02/21 20:59 Last Admin: 12/10/20 21:55 Dose: 900 mg Documented by: Haloperidol (Haloperidol 5 Mg Tab) 5 mg PO Q6 PRN PRN Reason: Agitation Stop: 01/02/21 19:28 Last Admin: 12/04/20 18:19 Dose: 5 mg Documented by: Hydroxyzine HCl (Hydroxyzine Hcl 25 Mg Tab) 50 mg PO HSZ PRN PRN Reason: Insomnia Stop: 01/02/21 19:15 Hydroxyzine HCl (Hydroxyzine Hcl 25 Mg Tab) 25 mg PO Q4H PRN PRN Reason: Anxiety Stop: 01/02/21 19:15 Lisinopril (Lisinopril 10 Mg Tab) 30 mg PO QAM [facility] Stop: 01/03/21 08:59 Last Admin: 12/10/20 08:21 Dose: 30 mg Documented by: Magnesium Hydroxide (Magnesium Hydroxide Susp 30 Ml Udc) 30 ml PO DAILY PRN PRN Reason: Constipation Stop: 01/02/21 19:15 Last Admin: 12/10/20 17:50 Dose: 30 ml Documented by: Miscellaneous (Remove Nicoderm Patch) 1 ea N/A DAILY@[id number] [facility] Stop: 01/03/21 08:58 Last Admin: 12/10/20 08:33 Dose: 1 ea Documented by: Nicotine (Nicotine 21 Mg/24 Hr Tdsy) 21 mg TD QAM [facility] Stop: 01/02/21 19:29 Last Admin: 12/10/20 08:23 Dose: Not Given Documented by: Nicotine Polacrilex (Nicotine Polacrilex 2 Mg Gum) 1 piece MT PRN PRN PRN Reason: Nicotine Withdrawal Stop: 01/02/21 19:15 Last Admin: 12/08/20 12:35 Dose: 1 piece Documented by: Nortriptyline HCl (Nortriptyline Hcl 25 Mg Cap) 50 mg PO BID [facility] Stop: 01/02/21 20:59 Last Admin: 12/10/20 21:55 Dose: 50 mg Documented by: Pantoprazole Sodium (Pantoprazole 40 Mg Tab) 40 mg PO QAM [facility] Stop: 01/03/21 08:59 Last Admin: 12/10/20 08:22 Dose: 40 mg Documented by: Quetiapine Fumarate (Quetiapine Fumarate 25 Mg Tablet) 50 mg PO Q4 PRN PRN Reason: Anxiety/Insomnia Stop: 01/02/21 19:26 Last Admin: 12/08/20 21:20 Dose: 50 mg Documented by: Sodium Chloride (Sodium Chloride 0.65% Na Soln 45 Ml ([place])) 1 - 2 sprays NA PRN PRN PRN Reason: Nasal Dryness/Congestion Stop: 01/02/21 19:15 Sumatriptan Succinate (Sumatriptan Succinate 50 Mg Tab) 50 mg PO DAILY PRN PRN Reason: Migraine Headache Stop: 01/02/21 19:24 Topiramate (Topiramate 50 Mg Tab) 50 mg PO BID [facility] Stop: 01/02/21 20:59 Last Admin: 12/10/20 21:55 Dose: 50 mg Documented by: Mental Health & Subst Abuse Tx Psychiatrist Name of Psychiatrist: NATAN Doyle Psychiatrist's Date of Appointment with Psychiatrist: 12/17/20 Time of Appointment with Psychiatrist: 1:30pm Psychiatric Appointment Comment: Telehealth Therapist Name of Therapist: Marco Hernández Therapist's Therapy Appointment Comment: She will schedule with you at the clinic on Thursday Tissue Rewinder Name of Tissue Rewinder: [facility] Phone Number for Tissue Rewinder: [phone] Date of Appointment with Tissue Rewinder: 12/18/20 Time of Appointment with Tissue Rewinder: 3:00 p.m. Case Management Appointment Comment: Telehealth Post Discharge Appointments Primary Care Physician Name Of Family Doctor: Ant [facility] Date of Appointment with PCP: 12/13/20 Time of Appointment with PCP: 3:00 p.m. (check-in at 2:45 p.m.) Provider Appointment Comment: [address] [place] [id number] Neurologist Name of Neurologist: Lisbet Rodney Neurologist's Date of Appointment with Neurologist: 12/13/20 Time of Appointment with Neurologist: 10:40am Specialist Name of Specialist: Dr. Fox Phone Number for Specialist: [phone] Date of Appointment with Specialist: 12/17/20 Time of Appointment with Specialist: 8:15am Specialty Appointment Comment: [facility] called pt. pharmacy to ensure pt. has supply of Suboxone Other #1: Name of Aftercare Appointment: [facility] Darius Pereira Phone Number of Aftercare Appointment: [phone] Aftercare Appointment Comment: Follow up as required #2: Name of Aftercare Appointment: [facility] Chava Dayond Phone Number of Aftercare Appointment: [phone] Aftercare Appointment Comment: Follow up as required #3: Name of Aftercare Appointment: Shanda PINEDA Phone Number of Aftercare Appointment: Date of Aftercare Appointment: 12/17/20 Time of Aftercare Appointment: 9am-12 Aftercare Appointment Comment: [place] office Contact Information Discharge Discharge Address: [address] [place] [address] [place] [id number]
[2020-12-12] MEDS: BUPRENORPHINE/NALOXONE 2/0.5MG 1 TAB PO SCH (09:58)
[2020-12-12] MEDS: GABAPENTIN 300 MG CAP PO SCH ×3 (09:59→21:26)
[2020-12-12] MEDS: cloNIDine HCL 0.1 MG TAB PO SCH ×2 (09:59→17:31)
[2020-12-12] MEDS: ARIPiprazole 10 MG TAB PO SCH (09:59)
[2020-12-12] MEDS: DULoxetine HCL 20 MG CAP PO SCH (09:59)
[2020-12-12] MEDS: ASPIRIN 81 MG ECTAB PO SCH (09:59)
[2020-12-12] MEDS: lisinopril 10 MG TAB PO SCH (10:00)
[2020-12-12] MEDS: FLUTICASONE/VILANTEROL 200/25MCG 14 PUFFS/INHALER INH SCH (10:00)
[2020-12-12] MEDS: NORTRIPTYLINE HCL 25 MG CAP PO SCH ×2 (10:00→21:27)
[2020-12-12] MEDS: TOPIRAMATE 50 MG TAB PO SCH ×2 (10:00→21:27)
[2020-12-12] MEDS: PANTOprazole 40 MG TAB PO SCH (10:00)
[2020-12-12] MEDS: NICOTINE 21 MG/24 HR TDSY TD SCH (10:07)
--- NOTE | 2020-12-12 13:31 | Psychiatric Progress Note ---
Date of Service December 12, 2020 Impression / Recommendations Impression 45-year-old single male with a history of bipolar type II, heroin and meth abuse, antisocial and dependent personality traits who presents with auditory hallucinations in the context of medication nonadherence and a relapse on numerous substances 2 months ago. Inpatient treatment is medically necessary due to the severity of symptoms and risk for suicide if discharged. (1) Psychosis: 12/04 -patient reports auditory hallucinations of 6-7 voices that have been going on for the past couple of months, beginning during a time when he relapsed and was using meth, heroin, fentanyl, MDMA, and bath salts. He also reports experiencing auditory hallucinations in the past when using. Differential includes substance-induced psychosis, primary thought disorder, unidentified organic cause, or psychotic mood disorder. If his reports of the timeline of his substance use are accurate, and substance-induced psychosis can be ruled out as he denies using drugs since September. He is not necessarily a reliable historian, however, which makes diagnosis a challenge. -Previous trial of quetiapine which the patient self discontinued quickly due to feeling more tired. He did respond positively to a dose of Haldol 5 mg last night, and will continue this as needed. He had been discussing a trial of aripiprazole with his outpatient clinician, and after review of risks, benefits, and side effects, agreed to initiate that here. Will start 5 mg daily and order fasting labs for baseline on an atypical antipsychotic for tomorrow. -Reviewed outpatient records, will contact Carolina Wilson NP to coordinate care. -Reality testing, address substance use disorders as below, as use is clearly contributing to psychotic symptoms. 12/05 - Pt agreeable with titrating aripiprazole to 10mg qAM starting tomorrow morning. Feeling it has not yet made a difference for reported auditory hallucinations. Pt now admitting that the voices did start while he was still abusing substances, but have persisted despite his reports of sobriety for the past few months. - Fasting glucose and lipid panel reviewed - all values WNL - Coordinate with outpatient psychiatric providers, determine additional opportunities for outpatient supports. - Encourage patient to attend group programming 12/06 - Aripiprazole 10mg qAM. Pt admits to ongoing auditory hallucinations, but states they are mildly improved - Denying SI/HI or safety concerns - Meeting scheduled with registered nurse hh case manager for 12/10 - Continue to coordinate aftercare supports with outpatient providers. 12/07 - Pt agreed to titrate aripiprazole to 15mg starting tomorrow morning. Ongoing auditory hallucinations, but volume reduced from 6/10 (on admission) to 2-3/10 within the past few days. - Denying SI/HI - Consider family meeting with mother 12/08 -Abilify increased to 15 mg today, continue titration to effective dose. Auditory hallucinations of voices are improving but still present and impairing functioning. Thought blocking and depression still noted on exam. 12/09 -Increase Abilify to 20 mg daily for tomorrow. 12/10 - Continue aripiprazole 20mg qAM. Adding duloxetine 20mg qAM with plan for slow titration as tolerated given bipolar disorder diagnosis - Met with registered nurse hh case manager this morning 12/11 - Continue medications as above - Solidify outpatient referrals, patient considering individual CBT therapist for mental health in addition to his substance abuse treatment - Pt denies SI, hallucinations are ongoing but at a more manageable volume per patient 12/12 - Pt agreeable with titration of aripiprazole as he reports ongoing struggles and frustration with auditory hallucinations. Wanting to move to HS dosing due to reports of daytime sedation. Will supplement with 10mg dose this evening, and then to 30mg qHS moving forward. - Continue duloxetine 20mg qAM - Continue to coordinate outpatient supports and resources (2) Bipolar II disorder: 12/04 -patient reports hypomanic episodes, unclear if these have occurred during periods of sobriety, and have also occurred during SNRI trials. Avoid unopposed antidepressants. -Trial of aripiprazole as above. 12/06 - Titrating aripiprazole as above 12/08 -continue to titrate aripiprazole, continue nortriptyline and gabapentin. 12/09 - Remains depressed, consider a trial of an antidepressant, his mood remains low. He is on nortriptyline, so would need to be mindful of drug drug interactions. Previous medication trials include an SSRI, to SNRIs, and bupropion. Could try mirtazapine, or another SSRI. 12/10 - Continue aripiprazole 20mg daily. Discussed options for antidepressant medications, patient requesting retrial of duloxetine. Discussed starting at low dose with very slow titration given bipolar diagnosis. - Met with registered nurse hh case manager this morning 12/11 - Continue aripiprazole 20mg and duloxetine 20mg daily - consider titration of medications as tolerated/indicated 12/12 - Pt agreed to titration of aripiprazole, outlined above (3) Opiate abuse, continuous: 12/04 -patient reports using IV heroin and fentanyl most recently in September, currently on Suboxone, continue home dose here and coordinate with outpatient substance abuse treatment providers. May benefit from more robust substance abuse treatment, including NA and AA. 12/06 - Follow-up appointment with Dr. Fox scheduled for Thursday12/17/20 at 8:15 - It was reported that patient has a 1-week supply of Suboxone still at his pharmacy that can be picked up on discharge and used until his follow-up appointment. 12/09 -patient would benefit from participation in/completion of a 12-step program such as NA or AA. We will continue to explore this with him, and provide him with a list of local meetings. 12/11 - Pt open to NA/AA meetings, has also been scheduled for IOP through [facility] (4) Methamphetamine abuse: As above (5) IVDU (intravenous drug user): Follow-up with PCP after discharge for HIV testing Risk Factors Assessment Male: Yes : Yes Do You Have Access To A Gun?: No Health Problems: Yes Mental Health Diagnoses: Yes Substance Use Disorders: Yes Previous Attempt: Yes Previous Attempt; Highly Lethal: Yes Previous Psychiatric Hospitalization: Yes Hopelessness: No Smoker: Yes Protective Factors Assessment : No Responsible for Young Children: No Employed: No Stable Relationships: No Supportive Family: Yes Interval History Identifying Information FLORENCIO LAUREN is a 45-year-old M who currently lives in [place], has a history of bipolar disorder, heroin and methamphetamine abuse, and hepatitis C and was admitted on 12/03/20 19:17 on a 201 voluntary commitment for hallucinations and psychosis. Chief Complaint "I was feeling good earlier, but I'm in a down stretch now." Review of Systems Notes Constitutional: denied Cardiovascular: denied Respiratory: denied Gastrointestinal: reports intermittent epigastric abdominal pain, straining with BMs, mild constipation Neurological: denied Psychiatric: denies symptoms other than stated above Total of at least 10 systems reviewed, pertinent positives as above and in HPI. Sleep Information Total Hours of Sleep: 6.5 Sleep Comments: pt on q-15 minute checks Meal Information Percent Meal Consumed - Breakfast: 100 Percent Meal Consumed - Lunch: 100 Percent Meal Consumed - Dinner: 100 Nutrition Comment: allowed to sleep Subjective Subjective Patient was seen & assessed and interval progress reviewed with treatment team. Staff report the patient has been participating in group programming. He continues to endorse auditory hallucinations, but was telling staff he felt better able to tolerate the voices. Pt was seen today to assess progress since admission. Pt states "I was feeling good earlier, but I'm in a down stretch now." Pt was seen just after he had spent time processing with our counselor. Pt shares that he became acutely frustrated by the voices during one of the activity groups and states "we were bowling and the voices were whispering things about taking away my mom and my freedom or whatever. I got mad and threw the ball pretty hard and just walked out of group." Pt states that he began walking laps for distraction, but also found processing with staff to be helpful. Pt states that he is frustrated with the hallucinations and states "it's just so freaking strange, this is all so new to me." Pt is finding that he often needs "to have two separate things going at once, something to listen to to drown out the voices and then some other activity to keep focused on." Pt was offered a radio, which he thinks will be helpful. We discussed titration of aripiprazole, which he was initially hesitant for. He cited concern related to his already elaborate medication list as well as "you guys said it may take a few days to weeks for the maximum benefit, and I think maybe I want to wait and see first." Pt later stated that he feels the additional medication could be helpful and he was willing to try a higher dose. Pt did express desire to move the medication to bedtime given what he perceives to be daytime sedation. Pt denied acute SI, but his frustration related to the ongoing auditory hallucinations is concerning. Pt denied other needs or concerns today. Physical Exam Psychiatric Orientation: alert, oriented x 3 and cooperative Apperance: appropriately dressed, appropriately groomed and appeared stated age Eye Contact: + fair eye contact Motor Behavior: steady gait and station and no abnormal motor movements Speech: normal rate/rhythm/volume of speech Affect: + flat affect Mood: + depressed mood (but states "the depression's improving") and + irritable mood (frustrations related to ongoing hallucinations) Thought Process: goal directed thought process Thought Content: reality based without delusions and + guilt; no hopelessness Suicidal Thoughts: denies suicidal thoughts and denies suicidal intent but still feels unsafe for discharge due to ongoing frustration with auditory hallucinations Homicidal Thoughts: denies homicidal thoughts Hallucinations: + auditory hallucinations; no visual hallucinations Cognition: attention grossly intact and language grossly intact Estimated Intelligence: consistent with education level Insight: + fair insight Judgement: + fair judgement Vital Signs (Past 24 Hours) Last Vital Signs Temp 36.4 C L 12/12/20 06:55 Pulse 78 12/12/20 06:56 Resp 16 12/12/20 06:55 BP 107/61 12/12/20 06:56 Pulse Ox 94 12/03/20 17:48 Results & Data ([facility]) Current Inpatient Medications Current Inpatient Medications: Current Inpatient Medications Acetaminophen (Acetaminophen 325 Mg Tab) 650 mg PO Q4H PRN PRN Reason: Headache or Minor Fever Stop: 01/02/21 19:15 Al Hydrox/Mg Hydrox/Simethicone (Aluminum/Magnesium Susp 30 Ml Udc) 30 ml PO Q4H PRN PRN Reason: GI Upset Stop: 01/02/21 19:15 Last Admin: 12/08/20 21:54 Dose: 30 ml Documented by: Albuterol (Albuterol Hfa 8 Gm Inhaler) 1 puffs INH QID PRN; Protocol PRN Reason: sob Stop: 01/02/21 19:23 Aripiprazole (Aripiprazole 10 Mg Tab) 20 mg PO QAM [facility] Stop: 01/09/21 08:59 Last Admin: 12/12/20 09:59 Dose: 20 mg Documented by: Aspirin (Aspirin 81 Mg Ectab) [facility] [place] [place] Stop: 01/03/21 08:59 Last Admin: 12/12/20 09:59 Dose: 81 mg Documented by: Benztropine Mesylate (Benztropine Mesylate 1 Mg Tab) 1 mg PO Q6 PRN PRN Reason: Muscle Spasm Stop: 01/02/21 19:28 Bismuth Subsalicylate (Bismuth Subsalicylate Liqd 236 Ml) 15 ml PO PRN PRN PRN Reason: Loose Stool Stop: 01/02/21 19:15 Buprenorphine/Naloxone (Buprenorphine/Naloxone 2/0.5mg 1 Tab) 1 tab PO DAILY [facility] Stop: 01/03/21 11:29 Last Admin: 12/12/20 09:58 Dose: 1 tab Documented by: Clonidine HCl (Clonidine Hcl 0.1 Mg Tab) 0.1 mg PO 0900,1600 [facility] Stop: 01/03/21 08:59 Last Admin: 12/12/20 09:59 Dose: 0.1 mg Documented by: Duloxetine HCl (Duloxetine Hcl 20 Mg Cap) 20 mg PO QAM [facility] Stop: 01/09/21 09:29 Last Admin: 12/12/20 09:59 Dose: 20 mg Documented by: Fluticasone/Vilanterol (Fluticasone/Vilanterol 200/25mcg 14 Puffs/Inhaler) 1 puffs INH DAILY [facility]; Protocol Stop: 01/03/21 08:59 Last Admin: 12/12/20 10:00 Dose: 1 puffs Documented by: Furosemide (Furosemide 20 Mg Tab) 20 mg PO DAILY PRN PRN Reason: Fluid Retention Stop: 01/02/21 19:23 Gabapentin (Gabapentin 300 Mg Cap) 600 [facility] [place] Stop: 01/03/21 08:59 Last Admin: 12/12/20 09:59 Dose: 600 mg Documented by: Gabapentin (Gabapentin 300 Mg Cap) 900 mg PO 1400,2100 [facility] Stop: 01/02/21 20:59 Last Admin: 12/11/20 21:17 Dose: 900 mg Documented by: Haloperidol (Haloperidol 5 Mg Tab) 5 mg PO Q6 PRN PRN Reason: Agitation Stop: 01/02/21 19:28 Last Admin: 12/04/20 18:19 Dose: 5 mg Documented by: Hydroxyzine HCl (Hydroxyzine Hcl 25 Mg Tab) 50 mg PO HSZ PRN PRN Reason: Insomnia Stop: 01/02/21 19:15 Hydroxyzine HCl (Hydroxyzine Hcl 25 Mg Tab) 25 mg PO Q4H PRN PRN Reason: Anxiety Stop: 01/02/21 19:15 Lisinopril (Lisinopril 10 Mg Tab) 30 mg PO QAM [facility] Stop: 01/03/21 08:59 Last Admin: 12/12/20 10:00 Dose: 30 mg Documented by: Magnesium Hydroxide (Magnesium Hydroxide Susp 30 Ml Udc) 30 ml PO DAILY PRN PRN Reason: Constipation Stop: 01/02/21 19:15 Last Admin: 12/10/20 17:50 Dose: 30 ml Documented by: Miscellaneous (Remove Nicoderm Patch) 1 ea N/A DAILY@[id number] [facility] Stop: 01/03/21 08:58 Last Admin: 12/12/20 10:08 Dose: Not Given Documented by: Nicotine (Nicotine 21 Mg/24 Hr Tdsy) 21 mg TD QAM [facility] Stop: 01/02/21 19:29 Last Admin: 12/12/20 10:07 Dose: Not Given Documented by: Nicotine Polacrilex (Nicotine Polacrilex 2 Mg Gum) 1 piece MT PRN PRN PRN Reason: Nicotine Withdrawal Stop: 01/02/21 19:15 Last Admin: 12/08/20 12:35 Dose: 1 piece Documented by: Nortriptyline HCl (Nortriptyline Hcl 25 Mg Cap) 50 mg PO BID [facility] Stop: 01/02/21 20:59 Last Admin: 12/12/20 10:00 Dose: 50 mg Documented by: Pantoprazole Sodium (Pantoprazole 40 Mg Tab) 40 mg PO QAM [facility] Stop: 01/03/21 08:59 Last Admin: 12/12/20 10:00 Dose: 40 mg Documented by: Quetiapine Fumarate (Quetiapine Fumarate 25 Mg Tablet) 50 mg PO Q4 PRN PRN Reason: Anxiety/Insomnia Stop: 01/02/21 19:26 Last Admin: 12/08/20 21:20 Dose: 50 mg Documented by: Sodium Chloride (Sodium Chloride 0.65% Na Soln 45 Ml ([place])) 1 - 2 sprays NA PRN PRN PRN Reason: Nasal Dryness/Congestion Stop: 01/02/21 19:15 Sumatriptan Succinate (Sumatriptan Succinate 50 Mg Tab) 50 mg PO DAILY PRN PRN Reason: Migraine Headache Stop: 01/02/21 19:24 Topiramate (Topiramate 50 Mg Tab) 50 mg PO BID [facility] Stop: 01/02/21 20:59 Last Admin: 12/12/20 10:00 Dose: 50 mg Documented by: Mental Health & Subst Abuse Tx Psychiatrist Name of Psychiatrist: NATAN Doyle Psychiatrist's Date of Appointment with Psychiatrist: 12/17/20 Time of Appointment with Psychiatrist: 1:30pm Psychiatric Appointment Comment: Telehealth Therapist Name of Therapist: Marco Hernández Therapist's Therapy Appointment Comment: She will schedule with you at the clinic on Thursday Manager Express Name of Manager Express: [employer]on King Phone Number for Manager Express: [phone] Date of Appointment with Manager Express: 12/18/20 Time of Appointment with Manager Express: 3:00 p.m. Case Management Appointment Comment: Telehealth Post Discharge Appointments Primary Care Physician Name Of Family Doctor: Ant Fox [facility] Date of Appointment with PCP: 12/18/20 Time of Appointment with PCP: 3:00 p.m. (check-in at 2:45 p.m.) Provider Appointment Comment: [address] [place] [address] [place] [address] Neurologist Name of Neurologist: Lisbet Rodney Neurologist's Date of Appointment with Neurologist: 03/08/21 Time of Appointment with Neurologist: 1:40pm Specialist Name of Specialist: Dr. Fox Phone Number for Specialist: [phone] Date of Appointment with Specialist: 12/17/20 Time of Appointment with Specialist: 8:15am Specialty Appointment Comment: Rebecca cates [facility] called pt. pharmacy to ensure pt. has supply of Suboxone Other #1: Name of Aftercare Appointment: ANTHONY Pereira Phone Number of Aftercare Appointment: [phone] Aftercare Appointment Comment: Follow up as required #2: Name of Aftercare Appointment: [facility] Phone Number of Aftercare Appointment: [phone] Aftercare Appointment Comment: Follow up as required #3: Name of Aftercare Appointment: [facility] Phone Number of Aftercare Appointment: Date of Aftercare Appointment: 12/17/20 Time of Aftercare Appointment: 9am-12 Aftercare Appointment Comment: [place] office #5: Name of Aftercare Appointment: [facility] Phone Number of Aftercare Appointment: [phone] Date of Aftercare Appointment: 12/25/20 Time of Aftercare Appointment: 12:30pm [facility] App[facility]ment [facility] [address] [facility] [address] Contact Information Discharge Discharge [address]: [address] [place] [id number]
[2020-12-12] MEDS: DOCUSATE SODIUM 100 MG CAP PO SCH (21:26)
[2020-12-12] MEDS: MAGNESIUM HYDROXIDE SUSP 30 ML UDC PO PRN (21:55)
[2020-12-12] MEDS ORDERED: ARIPiprazole 10 MG TAB PO SCH (22:00)
--- NOTE | 2020-12-13 08:49 | Psychiatric Progress Note ---
Date of Service December 13, 2020 Impression / Recommendations Impression 45-year-old single male with a history of bipolar type II, heroin and meth abuse, antisocial and dependent personality traits who presents with auditory hallucinations in the context of medication nonadherence and a relapse on numerous substances 2 months ago. Inpatient treatment is medically necessary due to the severity of symptoms and risk for suicide if discharged. (1) Psychosis: 12/04 -patient reports auditory hallucinations of 6-7 voices that have been going on for the past couple of months, beginning during a time when he relapsed and was using meth, heroin, fentanyl, MDMA, and bath salts. He also reports experiencing auditory hallucinations in the past when using. Differential includes substance-induced psychosis, primary thought disorder, unidentified organic cause, or psychotic mood disorder. If his reports of the timeline of his substance use are accurate, and substance-induced psychosis can be ruled out as he denies using drugs since September. He is not necessarily a reliable historian, however, which makes diagnosis a challenge. -Previous trial of quetiapine which the patient self discontinued quickly due to feeling more tired. He did respond positively to a dose of Haldol 5 mg last night, and will continue this as needed. He had been discussing a trial of aripiprazole with his outpatient clinician, and after review of risks, benefits, and side effects, agreed to initiate that here. Will start 5 mg daily and order fasting labs for baseline on an atypical antipsychotic for tomorrow. -Reviewed outpatient records, will contact Carolina Wilson NP to coordinate care. -Reality testing, address substance use disorders as below, as use is clearly contributing to psychotic symptoms. 12/05 - Pt agreeable with titrating aripiprazole to 10mg qAM starting tomorrow morning. Feeling it has not yet made a difference for reported auditory hallucinations. Pt now admitting that the voices did start while he was still abusing substances, but have persisted despite his reports of sobriety for the past few months. - Fasting glucose and lipid panel reviewed - all values WNL - Coordinate with outpatient psychiatric providers, determine additional opportunities for outpatient supports. - Encourage patient to attend group programming 12/06 - Aripiprazole 10mg qAM. Pt admits to ongoing auditory hallucinations, but states they are mildly improved - Denying SI/HI or safety concerns - Meeting scheduled with bilingual patient support caseworker for 12/10 - Continue to coordinate aftercare supports with outpatient providers. 12/07 - Pt agreed to titrate aripiprazole to 15mg starting tomorrow morning. Ongoing auditory hallucinations, but volume reduced from 6/10 (on admission) to 2-3/10 within the past few days. - Denying SI/HI - Consider family meeting with mother 12/08 -Abilify increased to 15 mg today, continue titration to effective dose. Auditory hallucinations of voices are improving but still present and impairing functioning. Thought blocking and depression still noted on exam. 12/09 -Increase Abilify to 20 mg daily for tomorrow. 12/10 - Continue aripiprazole 20mg qAM. Adding duloxetine 20mg qAM with plan for slow titration as tolerated given bipolar disorder diagnosis - Met with bilingual patient support caseworker this morning 12/11 - Continue medications as above - Solidify outpatient referrals, patient considering individual CBT therapist for mental health in addition to his substance abuse treatment - Pt denies SI, hallucinations are ongoing but at a more manageable volume per patient 12/12 - Pt agreeable with titration of aripiprazole as he reports ongoing struggles and frustration with auditory hallucinations. Wanting to move to HS dosing due to reports of daytime sedation. Will supplement with 10mg dose this evening, and then to 30mg qHS moving forward. - Continue duloxetine 20mg qAM - Continue to coordinate outpatient supports and resources 12/13 - Continue current medication regimen, aripiprazole titrated yesterday - pt continues to endorse auditory hallucinations, but volume is reduced (2) Bipolar II disorder: 12/04 -patient reports hypomanic episodes, unclear if these have occurred during periods of sobriety, and have also occurred during SNRI trials. Avoid unopposed antidepressants. -Trial of aripiprazole as above. 12/06 - Titrating aripiprazole as above 12/08 -continue to titrate aripiprazole, continue nortriptyline and gabapentin. 12/09 - Remains depressed, consider a trial of an antidepressant, his mood remains low. He is on nortriptyline, so would need to be mindful of drug drug interactions. Previous medication trials include an SSRI, to SNRIs, and bupropion. Could try mirtazapine, or another SSRI. 12/10 - Continue aripiprazole 20mg daily. Discussed options for antidepressant medications, patient requesting retrial of duloxetine. Discussed starting at low dose with very slow titration given bipolar diagnosis. - Met with bilingual patient support caseworker this morning 12/11 - Continue aripiprazole 20mg and duloxetine 20mg daily - consider titration of medications as tolerated/indicated 12/12 - Pt agreed to titration of aripiprazole, outlined above 12/13 - Continue medications as above (3) Opiate abuse, continuous: 12/04 -patient reports using IV heroin and fentanyl most recently in September, currently on Suboxone, continue home dose here and coordinate with outpatient substance abuse treatment providers. May benefit from more robust substance abuse treatment, including NA and AA. 12/06 - Follow-up appointment with Dr. Fox scheduled for Thursday12/17/20 at 8:15 - It was reported that patient has a 1-week supply of Suboxone still at his pharmacy that can be picked up on discharge and used until his follow-up appointment. 12/09 -patient would benefit from participation in/completion of a 12-step program such as NA or AA. We will continue to explore this with him, and provide him with a list of local meetings. 12/11 - Pt open to NA/AA meetings, has also been scheduled for IOP through [facility] (4) Methamphetamine abuse: As above (5) IVDU (intravenous drug user): Follow-up with PCP after discharge for HIV testing Risk Factors Assessment Male: Yes : Yes Do You Have Access To A Gun?: No Health Problems: Yes Mental Health Diagnoses: Yes Substance Use Disorders: Yes Previous Attempt: Yes Previous Attempt; Highly Lethal: Yes Previous Psychiatric Hospitalization: Yes Hopelessness: No Smoker: Yes Protective Factors Assessment : No Responsible for Young Children: No Employed: No Stable Relationships: No Supportive Family: Yes Interval History Identifying Information FLORENCIO LAUREN is a 45-year-old M who currently lives in [place], has a history of bipolar disorder, heroin and methamphetamine abuse, and hepatitis C and was admitted on 12/03/20 19:17 on a 201 voluntary commitment for hallucinations and psychosis. Chief Complaint "I definitely feel better, the voices are quiet but they're not gone." Review of Systems Notes Constitutional: denied Cardiovascular: denied Respiratory: denied Gastrointestinal: reports improvement regarding bowel movements Neurological: denied Psychiatric: denies symptoms other than stated above Total of at least 10 systems reviewed, pertinent positives as above and in HPI. Sleep Information Total Hours of Sleep: 6.5 Sleep Comments: pt on q-15 minute checks Meal Information Percent Meal Consumed - Breakfast: 100 Percent Meal Consumed - Lunch: 100 Percent Meal Consumed - Dinner: 100 Nutrition Comment: allowed to sleep Subjective Subjective Patient was seen & assessed and interval progress reviewed with nursing and social work. Staff report the patient had a difficult afternoon coping with frustrations related to auditory hallucinations. Pt was seen today to assess progress since admission. Pt states "I definitely feel better, the voices are quiet but they're not gone." Pt opened up a bit today about processing the behaviors that led to his presentation. He states that he had been hearing his vessel traffic officer's voice telling him "you're going to fdc, put your hands up and go outside." Pt states "I didn't know if it was real, because no one was outside, but I didn't want them to barge into my mother's house. So...I stood outside with my hands up, just waiting." Pt states that he is no longer hearing his parole officers voice on the unit. He does admit that voices continue, but that "I know what reality is." Pt states he is feeling more confident with his ability to utilize coping strategies and is feeling closer to being ready for discharge. Pt denied SI as well as other needs or concerns today. Physical Exam Psychiatric Orientation: alert, oriented x 3 and cooperative Apperance: appropriately dressed, appropriately groomed and appeared stated age Eye Contact: good eye contact Motor Behavior: steady gait and station and no abnormal motor movements Speech: normal rate/rhythm/volume of speech Affect: + blunted affect (subdued, but mildly brighter) Mood: + depressed mood (but improving somewhat) Thought Process: goal directed thought process and clear/coherent thought process Thought Content: reality based without delusions and + guilt; no hopelessness Suicidal Thoughts: denies suicidal thoughts and denies suicidal intent Homicidal Thoughts: denies homicidal thoughts Hallucinations: + auditory hallucinations; no visual hallucinations Cognition: attention grossly intact and language grossly intact Estimated Intelligence: consistent with education level Insight: + fair insight Judgement: + fair judgement Vital Signs (Past 24 Hours) Last Vital Signs Temp 36.5 C 12/13/20 06:57 Pulse 69 12/13/20 06:57 Resp 16 12/13/20 06:57 BP 100/62 12/13/20 06:57 Pulse Ox 94 12/03/20 17:48 Results & Data ([facility]) Current Inpatient Medications Current Inpatient Medications: Current Inpatient Medications Acetaminophen (Acetaminophen 325 Mg Tab) 650 mg PO Q4H PRN PRN Reason: Headache or Minor Fever Stop: 01/02/21 19:15 Al Hydrox/Mg Hydrox/Simethicone (Aluminum/Magnesium Susp 30 Ml Udc) 30 ml PO Q4H PRN PRN Reason: GI Upset Stop: 01/02/21 19:15 Last Admin: 12/08/20 21:54 Dose: 30 ml Documented by: Albuterol (Albuterol Hfa 8 Gm Inhaler) 1 puffs INH QID PRN; Protocol PRN Reason: sob Stop: 01/02/21 19:23 Aripiprazole (Aripiprazole 15 Mg Tab) 30 mg PO HS [facility] Stop: 01/12/21 21:59 Aspirin (Aspirin 81 Mg Ectab) 81 mg PO QAM [facility] Stop: 01/03/21 08:59 Last Admin: 12/12/20 09:59 Dose: 81 mg Documented by: Benztropine Mesylate (Benztropine Mesylate 1 Mg Tab) 1 mg PO Q6 PRN PRN Reason: Muscle Spasm Stop: 01/02/21 19:28 Bismuth Subsalicylate (Bismuth Subsalicylate Liqd 236 Ml) 15 ml PO PRN PRN PRN Reason: Loose Stool Stop: 01/02/21 19:15 Buprenorphine/Naloxone (Buprenorphine/Naloxone 2/0.5mg 1 Tab) 1 tab PO DAILY [facility] Stop: 01/03/21 11:29 Last Admin: 12/12/20 09:58 Dose: 1 tab Documented by: Clonidine HCl (Clonidine Hcl 0.1 Mg Tab) 0.1 mg PO 0900,1600 [facility] Stop: 01/03/21 08:59 Last Admin: 12/12/20 17:31 Dose: 0.1 mg Documented by: Docusate Sodium (Docusate Sodium 100 Mg Cap) 100 mg PO BID [facility] Stop: 01/11/21 20:59 Last Admin: 12/12/20 21:26 Dose: 100 mg Documented by: Duloxetine HCl (Duloxetine Hcl 20 Mg Cap) 20 mg PO QAM [facility] Stop: 01/09/21 09:29 Last Admin: 12/12/20 09:59 Dose: 20 mg Documented by: Fluticasone/Vilanterol (Fluticasone/Vilanterol 200/25mcg 14 Puffs/Inhaler) 1 puffs INH DAILY [facility]; Protocol Stop: 01/03/21 08:59 Last Admin: 12/12/20 10:00 Dose: 1 puffs Documented by: Furosemide (Furosemide 20 Mg Tab) 20 mg PO DAILY PRN PRN Reason: Fluid Retention Stop: 01/02/21 19:23 Gabapentin (Gabapentin 300 Mg Cap) 600 mg PO QAM [facility] Stop: 01/03/21 08:59 Last Admin: 12/12/20 09:59 Dose: 600 mg Documented by: Gabapentin (Gabapentin 300 Mg Cap) 900 mg PO 1400,2100 [facility] Stop: 01/02/21 20:59 Last Admin: 12/12/20 21:26 Dose: 900 mg Documented by: Haloperidol (Haloperidol 5 Mg Tab) 5 mg PO Q6 PRN PRN Reason: Agitation Stop: 01/02/21 19:28 Last Admin: 12/04/20 18:19 Dose: 5 mg Documented by: Hydroxyzine HCl (Hydroxyzine Hcl 25 Mg Tab) 50 mg PO HSZ PRN PRN Reason: Insomnia Stop: 01/02/21 19:15 Hydroxyzine HCl (Hydroxyzine Hcl 25 Mg Tab) 25 mg PO Q4H PRN PRN Reason: Anxiety Stop: 01/02/21 19:15 Lisinopril (Lisinopril 10 Mg Tab) 30 mg PO QAM [facility] Stop: 01/03/21 08:59 Last Admin: 12/12/20 10:00 Dose: 30 mg Documented by: Magnesium Hydroxide (Magnesium Hydroxide Susp 30 Ml Udc) 30 ml PO DAILY PRN PRN Reason: Constipation Stop: 01/02/21 19:15 Last Admin: 12/12/20 21:55 Dose: 30 ml Documented by: Miscellaneous (Remove Nicoderm Patch) 1 ea N/A DAILY@[id number] [facility] Stop: 01/03/21 08:58 Last Admin: 12/12/20 10:08 Dose: Not Given Documented by: Nicotine (Nicotine 21 Mg/24 Hr Tdsy) 21 mg TD QAM [facility] Stop: 01/02/21 19:29 Last Admin: 12/12/20 10:07 Dose: Not Given Documented by: Nicotine Polacrilex (Nicotine Polacrilex 2 Mg Gum) 1 piece MT PRN PRN PRN Reason: Nicotine Withdrawal Stop: 01/02/21 19:15 Last Admin: 12/08/20 12:35 Dose: 1 piece Documented by: Nortriptyline HCl (Nortriptyline Hcl 25 Mg Cap) 50 mg PO BID [facility] Stop: 01/02/21 20:59 Last Admin: 12/12/20 21:27 Dose: 50 mg Documented by: Pantoprazole Sodium (Pantoprazole 40 Mg Tab) 40 mg PO QAM [facility] Stop: 01/03/21 08:59 Last Admin: 12/12/20 10:00 Dose: 40 mg Documented by: Quetiapine Fumarate (Quetiapine Fumarate 25 Mg Tablet) 50 mg PO Q4 PRN PRN Reason: Anxiety/Insomnia Stop: 01/02/21 19:26 Last Admin: 12/08/20 21:20 Dose: 50 mg Documented by: Sodium Chloride (Sodium Chloride 0.65% Na Soln 45 Ml ([place])) 1 - 2 sprays NA PRN PRN PRN Reason: Nasal Dryness/Congestion Stop: 01/02/21 19:15 Sumatriptan Succinate (Sumatriptan Succinate 50 Mg Tab) 50 mg PO DAILY PRN PRN Reason: Migraine Headache Stop: 01/02/21 19:24 Topiramate (Topiramate 50 Mg Tab) 50 mg PO BID [facility] Stop: 01/02/21 20:59 Last Admin: 12/12/20 21:27 Dose: 50 mg Documented by: Mental Health & Subst Abuse Tx Psychiatrist Name of Psychiatrist: NATAN Doyle Psychiatrist's Date of Appointment with Psychiatrist: 12/17/20 Time of Appointment with Psychiatrist: 1:30pm Psychiatric Appointment Comment: Telehealth Therapist Name of Therapist: Marco Hernández Therapist's Therapy Appointment Comment: She will schedule with you at the clinic on Thursday Hip Hop Dance Instructor Name of Hip Hop Dance Instructor: [facility] Phone Number for Hip Hop Dance Instructor: [phone] Date of Appointment with Hip Hop Dance Instructor: 12/18/20 Time of Appointment with Hip Hop Dance Instructor: 3:00 p.m. Case Management Appointment Comment: Telehealth Post Discharge Appointments Primary Care Physician Name Of Family Doctor: Ant [facility] Date of Appointment with PCP: 12/18/20 Time of Appointment with PCP: 3:00 p.m. (check-in at 2:45 p.m.) Provider Appointment Comment: [address] [place], [place] [address] [address] Neurologist Name of Neurologist: Lisbet Darling-Dr Rodney Neurologist's Date of Appointment with Neurologist: 03/08/21 Time of Appointment with Neurologist: 1:40pm Specialist Name of Specialist: Dr. Fox Phone Number for Specialist: [phone] Date of Appointment with Specialist: 12/17/20 Time of Appointment with Specialist: 8:15am Specialty Appointment Comment: Rebecca at [facility] called pt. pharmacy to ensure pt. has supply of Suboxone Other #1: Name of Aftercare Appointment: [place]ONY Pereira Phone Number of Aftercare Appointment: [phone] Aftercare Appointment Comment: Follow up as required #2: Name of Aftercare Appointment: [facility] Chava Goodman Phone Number of Aftercare Appointment: [phone] Aftercare Appointment Comment: Follow up as required #3: Name of Aftercare Appointment: [facility] Phone Number of Aftercare Appointment: Date of Aftercare Appointment: 12/17/20 Time of Aftercare Appointment: 9am-12 Aftercare Appointment Comment: [place] office #5: Name of Aftercare Appointment: [facility] Phone Number of Aftercare Appointment: [phone] Date of Aftercare Appointment: 12/25/20 Time of Aftercare Appointment: 12:30pm Aftercare Appointment Comment: [address], [place] [address] Contact Information Discharge Discharge Address: [facility] [address] [place]
[2020-12-13] MEDS: NICOTINE 21 MG/24 HR TDSY TD SCH (09:32)
[2020-12-13] MEDS: FLUTICASONE/VILANTEROL 200/25MCG 14 PUFFS/INHALER INH SCH (09:32)
[2020-12-13] MEDS: ASPIRIN 81 MG ECTAB PO SCH (09:33)
[2020-12-13] MEDS: BUPRENORPHINE/NALOXONE 2/0.5MG 1 TAB PO SCH (09:34)
[2020-12-13] MEDS: cloNIDine HCL 0.1 MG TAB PO SCH ×2 (09:35→19:09)
[2020-12-13] MEDS: GABAPENTIN 300 MG CAP PO SCH ×3 (09:35→20:53)
[2020-12-13] MEDS: DOCUSATE SODIUM 100 MG CAP PO SCH (09:35)
[2020-12-13] MEDS: DULoxetine HCL 20 MG CAP PO SCH (09:35)
[2020-12-13] MEDS: lisinopril 10 MG TAB PO SCH (09:36)
[2020-12-13] MEDS: NORTRIPTYLINE HCL 25 MG CAP PO SCH ×2 (09:36→20:54)
[2020-12-13] MEDS: TOPIRAMATE 50 MG TAB PO SCH ×2 (09:37→20:54)
[2020-12-13] MEDS: PANTOprazole 40 MG TAB PO SCH (09:37)
[2020-12-13] MEDS ORDERED: DOCUSATE SODIUM 100 MG CAP PO PRN (13:42)
[2020-12-13] MEDS ORDERED: ARIPiprazole 15 MG TAB PO SCH (22:00)
[2020-12-14] MEDS: ASPIRIN 81 MG ECTAB PO SCH (09:24)
[2020-12-14] MEDS: BUPRENORPHINE/NALOXONE 2/0.5MG 1 TAB PO SCH (09:25)
[2020-12-14] MEDS: cloNIDine HCL 0.1 MG TAB PO SCH (09:25)
[2020-12-14] MEDS: DULoxetine HCL 20 MG CAP PO SCH (09:26)
[2020-12-14] MEDS: lisinopril 10 MG TAB PO SCH (09:27)
[2020-12-14] MEDS: GABAPENTIN 300 MG CAP PO SCH ×2 (09:27→14:19)
[2020-12-14] MEDS: FLUTICASONE/VILANTEROL 200/25MCG 14 PUFFS/INHALER INH SCH (09:27)
[2020-12-14] MEDS: PANTOprazole 40 MG TAB PO SCH (09:28)
[2020-12-14] MEDS: TOPIRAMATE 50 MG TAB PO SCH (09:28)
[2020-12-14] MEDS: NORTRIPTYLINE HCL 25 MG CAP PO SCH (09:28)
[2020-12-14] MEDS: NICOTINE 21 MG/24 HR TDSY TD SCH (09:36)
--- NOTE | 2020-12-14 13:32 | Discharge Summary ---
Date of Service December 14, 2020 History of Present Illness Patient presented to the ER reporting auditory hallucinations for the past 6-8 weeks, telling him not to take medication, telling him to do "bad things" to himself, and calling him names. He reported paranoia that people were coming to rape him, beat him up, or put him back in retirement. He reported medication nonadherence in response to the voices, saying he was not taking Seroquel because it made him too tired. He reported intrusive thoughts of suicide and overdosing on medications. He is on parole after being released from alf in August 2019 for drug charges. History of heroin, meth, cocaine use, he reports last use was a couple months ago. Admission labs notable for WBC 11.19, RBC 4.16, hemoglobin 13.5, hematocrit 39.3; sodium 135, BUN 19, AST 79, ALT 111; UA with 2+ blood and 5-10 RBCs; negative UDS and Covid screen, TSH 0.770. He agreed to voluntary hospitalization, was crying and rocking back and forth on arrival to the unit, stating that because of him, people had . He received Haldol 5mg. He was continued on his home medications including Suboxone, clonidine, topiramate, nortriptyline, and gabapentin. On my assessment he reports he was sent in by his outpatient nurse practitioner, Carolina Wilson, yesterday after reporting auditory hallucinations and paranoia. He is a poor historian, was unable to give a timeline of symptoms, stating he did not remember when the voices started or how often he experienced them. With repeated questioning, he did state that he had experienced auditory hallucinations before when using, and that the voices began again in September when he was using IV heroin, methamphetamine, fentanyl, bath salts, and ecstasy. He says he has not used recreational drugs since the end of September, but the hallucinations have continued. He hears 6-7 different voices, some of whom are people he knows. He cannot say how often he hears them, stating he does not remember. They sometimes make negative comments about him, tell him he has hurt people, will sometimes repeat themselves like an echo, or make conflicting statements. He says he was prescribed Seroquel to target the voices, but stopped it as he was feeling sedated, and did not tell his outpatient LEAD TELLER. He reports increasing paranoia which he attributes to the voices, as they tell him that somebody is going to "get it me," and that people are saying he is a rapist and a rat. Mood has been depressed for "months and months," with disrupted sleep, low energy and motivation, decreased appetite and 40 pound weight loss. He says he does not want to end his life, but that suicide "pops into my mind, and to my imagination," with thoughts of overdosing on his medications. He reports a history of "manic" episodes that last a maximum of 1-2 days, but more commonly about 12 hours, and consist of increased energy, and cleaning behaviors. During these episodes, mood is "a little edgy," denies euphoria/elevated mood. He cannot recall when he last had an episode like this, but thinks it was when he was on Cymbalta, which was then stopped. Also occurred on Effexor per EMR. Denies other OCD symptoms. He states he is disabled and does not work, spends his time helping his mother around the house. Physical Exam Psychiatric Orientation: alert Apperance: appropriately dressed and appropriately groomed Eye Contact: good eye contact Motor Behavior: steady gait and station Speech: normal rate/rhythm/volume of speech Affect: + constricted affect "Pretty good now. A lot better." Thought Process: goal directed thought process Thought Content: reality based without delusions Suicidal Thoughts: denies suicidal thoughts Homicidal Thoughts: denies homicidal thoughts Hallucinations: + auditory hallucinations ("A lot better. Just whispers now. Can't make it out."); no visual hallucinations and no tactile hallucinations Cognition: recent memory grossly intact, remote memory grossly intact, attention grossly intact and language grossly intact Estimated Intelligence: average estimated intelligence Insight: + fair insight Judgement: + fair judgement Vital Signs (Past 24 Hours) Last Vital Signs Temp 36.3 C L 12/14/20 06:55 Pulse 96 H 12/14/20 09:03 Resp 16 12/13/20 06:57 BP 117/79 12/14/20 09:03 Pulse Ox 94 12/03/20 17:48 Principal Diagnosis Unspecified Psychosis Psychiatric Data During the course of hospitalization the patient was offered various modalities of psychiatric treatment and education. These included individual, group, recreational, family, and chemotherapy. The patient participated earnestly and actively in the various forms of therapy offered. He was placed on aripiprazole and duloxetine. The dose of aripiprazole was titrated to a dose of 30 mg a day, and the patient reported that he not only tolerated aripiprazole well it was helpful and that his pronounced and distinct auditory hallucinations began to decrease in volume and intensity, and eventually persisted only as an audible whispers that he did not find distracting or troubling. The patient's dose of duloxetine was titrated to 20 mg daily, and on the day of discharge it ordered to be increased the following day to a dose of 30 mg a day. Material risks and anticipated benefits of both of these medications were reviewed with the patient, and he asked several questions and indicated understanding. Over the course of the stay, the patient's insight into the nature of his presenting symptoms improved. He was able to state convincingly that he recognized that his thoughts that people were spying on him, following him, and attempting to get him arrested for occult drug use was "in [his] head," and "paranoia." He also was able to describe the voices that he was hearing as hallucinations, and he stated clearly that he realizes now that these voices are not real and, instead, are "[his] mind playing tricks on [him]" as he put it. A primary focus of treatment during the stay pertained to the patient's longstanding history of the abuse of mood altering chemical substances. The diagnosis of bipolar disorder has been called into question within the context of a 20-plus year history of the abuse of mood altering chemical substances. The patient is in agreement, and notes that his mood and his cognitive abilities have routinely been adversely affected by the drugs he uses. He tells us that "speedball" which in his case involves a combination of heroin and methamphetamine (rather than cocaine) is his drug of choice, and he recognizes that these drugs tend to have opposite effects, with one being a stimulant and the other being a depressant. The patient consistently reported that he was not experiencing thoughts of suicide and also confirmed that he was not experiencing any thoughts of causing physical harm to the person or property of others. Particular emphasis in his case was placed on aftercare planning. The treatment team met with and was in agreement that the patient had received maximum benefit from inpatient psychiatric hospitalization, and that he was now sufficiently competent cognitively and sufficiently stable mentally to continue his treatment on an outpatient basis. The patient was in agreement and said that he felt improved to the degree that he feels confidence that he can now return home and continue his treatment on an outpatient basis. Day of Discharge Assessment On the day of discharge, the patient was found to be in appropriately dressed and groomed gentleman who was both pleasant and cooperative. His speech was delivered at a normal rate and rhythm, and was spontaneous. He describes his m ood as being significantly "good." He does express some anxiety about discharge because he is eager to maintain abstinence from drugs of abuse on discharge, but also recognizes that this has always been a struggle for him. The patient's affect is somewhat subdued, but he smiles appropriately several times during the encounter and is fairly animated. The patient's thought processes demonstrate tight associations. The patient's thought content is currently devoid of any psychotic features. He recalls the delusional believes he held in the period of time leading up to the admission, refers to these thoughts as "paranoia" and "[his] paranoia," and talks about how firmly he believed that people were following him, persecuting him, spying on him, and attempting to "turn [him] in to the police." He acknowledges that with help from the treatment team and his peers on the unit, as well as from his medications, these thoughts dissipated and he developed insight into the fact that they simply were not real. He is able to recall the fairly recent instance and when she was standing out in front of his house with his arms raised in the air and his head bowed because he was absolutely convinced that a "SWAT team" was on its way to his house to arrest him and take him back to retirement because he had been abusing the conditions of his parole by using heroin and methamphetamine. Recall of th is instance, and the fact that he stood there for 2 hours, because the patient to smile and say, "of course that was all in my head. I can look back on it now and see that it proved that was being paranoid." The patient told us that the most troubling symptom for him was the auditory hallucinations that he was experiencing. These hallucinations were both depreciating and fueled his paranoid delusional believes. During the stay, the patient began to report that the intensity and frequency of these voices were reduced, and over the last several days of the stay the patient noted that the voices have been further diminished to the point that he was only hearing occasional "whispers," and that he could not make out the content of the whispers. He also reports that he does not find the "whispers" that he hears to be troubling. The patient also is able to say that he knows that the voices that he had been hearing "weren't real," and he notes that the experiences of the paranoia and auditory hallucinations were frightening enough to him that the service of further motivation to achieve and maintain abstinence. Patient noted that he was not having thoughts of suicide, and was able to describe his community safety plan. He identifies his mother is one of his long trusted sources of support. The patient also reports that he intends to use self-help groups such as Narcotics Anonymous to develop additional support. In addition, the patient seems to have a realistic understanding of his risk for drug relapse, but recognizes that the urged to use and any relapses likely to be a trigger for the return of his psychotic symptoms. The patient insight and judgment are assessed as being fair. His intelligence is thought to be average at this point. Transition of Care Transition Of Care Record: was reviewed with the patient Advance Directives Advance Directives Information Provided: Yes Advance Directives: No Mental Health Advance Directive: No Advance Directives on File: No Living Will: No Power of Livestock Dealer: No Advance Directives Reason:: Declines as Mental Health Visit. Risk Factors Assessment History of major mental illness. History of psychotic features. History of the habitual and long-term use of mood altering and psychoactive chemical substance s. Mitigating factors include motivation to recovery, and strong family support. Male: Yes : Yes Do You Have Access To A Gun?: No Health Problems: Yes Mental Health Diagnoses: Yes Substance Use Disorders: Yes Previous Attempt: Yes Previous Attempt; Highly Lethal: Yes Previous Psychiatric Hospitalization: Yes Hopelessness: No Smoker: Yes Protective Factors Assessment Zoroastrianism Beliefs: Yes : No Responsible for Young Children: No Employed: No Stable Relationships: No Supportive Family: Yes Good Rapport with Provider: Yes Absence of Any Risk Factors Above: No Tobacco Cessation at Discharge Tobacco Cessation Medication Prescribed at Discharge: Offered & Prescribed Practical counseling provided including: recognizing danger situations, developing coping skills and providing basic information about quitting Tobacco Cessation Outpatient Followup: Referral for outpatient treatment offered and refused Antipsychotic Medications Aripiprazole prescribed because of presenting symptoms of paranoid delusional believes and auditory hallucinations. Total Time Total Time Spent: Greater Than 30 Minutes Total Time Includes: Examination of the patient, Discharge Planning, Medication Reconciliation and Communication with other providers Discharge Data Lab Results 12/03/20 12/03/20 12/03/20 15:18 15:18 15:18 WBC 11.19 H RBC 4.16 L Hgb 13.5 L Hct 39.3 L MCV 94.5 MCH 32.5 MCHC 34.4 RDW Std Deviation 48.6 H RDW Coeff of Nicolas 14.1 Plt Count 386 MPV 10.3 Immature Gran % (Auto) 0.3 Neut % (Auto) 45.7 Lymph % (Auto) 41.5 Keith % (Auto) 8.8 Eos % (Auto) 3.3 Baso % (Auto) 0.4 Neut # (Auto) 5.11 Lymph # (Auto) 4.64 H Keith # (Auto) 0.99 H Eos # (Auto) 0.37 Baso # (Auto) 0.05 Immature Gran # (Auto) 0.03 H Sodium 135 L Potassium 4.3 Chloride 104 Carbon Dioxide 25 Anion Gap 6.0 BUN 19 H Creatinine 0.93 Est Cr Clr Drug Dosing 114.2 Est GFR ( Amer) 116.1 Est GFR (Non-Af Amer) 100.2 BUN/Creatinine Ratio 20.5 H Glucose 90 Fasting Glucose Calcium 8.9 Total Bilirubin 0.5 AST 79 H ALT 111 H Alkaline Phosphatase 54 Total Protein 7.9 Albumin 4.0 Globulin 3.9 Albumin/Globulin Ratio 1.0 Triglycerides Cholesterol LDL Cholesterol, Calc VLDL Cholesterol, Calc HDL Cholesterol Cholesterol/HDL Ratio TSH 0.770 Urine Color Urine Appearance Urine pH Ur Specific [place] Urine Protein Urine Glucose (UA) Urine Ketones Urine Blood Urine Nitrite Urine Bilirubin Urine Urobilinogen Ur Leukocyte Esterase Urine WBC (Auto) Urine RBC (Auto) U Hyaline Cast (Auto) U Epithel Cells (Auto) Urine Bacteria (Auto) Salicylates 1.8 L Urine Opiates Screen Ur Methadone, Qual Acetaminophen < 2 L Urine Barbiturates Ur Phencyclidine (PCP) U Amphetamin/Meth Scrn MDMA (Ecstasy) Screen U Benzodiazepines Scrn Ur Cocaine Metabolite U Marijuana (THC) Screen Ethyl Alcohol mg/dL COVID-19 Eval Order SARS-CoV-2 (PCR) Influenza Type A (PCR) Influenza Type B (PCR) RSV (RT-PCR) 12/03/20 12/03/20 12/03/20 15:18 15:34 15:34 WBC RBC Hgb Hct MCV MCH MCHC RDW Std Deviation RDW Coeff of Nicolas Plt Count MPV Immature Gran % (Auto) Neut % (Auto) Lymph % (Auto) Keith % (Auto) Eos % (Auto) Baso % (Auto) Neut # (Auto) Lymph # (Auto) Keith # (Auto) Eos # (Auto) Baso # (Auto) Immature Gran # (Auto) Sodium Potassium Chloride Carbon Dioxide Anion Gap BUN Creatinine Est Cr Clr Drug Dosing Est GFR ( Amer) Est GFR (Non-Af Amer) BUN/Creatinine Ratio Glucose Fasting Glucose Calcium Total Bilirubin AST ALT Alkaline Phosphatase Total Protein Albumin Globulin Albumin/Globulin Ratio Triglycerides Cholesterol LDL Cholesterol, Calc VLDL Cholesterol, Calc HDL Cholesterol Cholesterol/HDL Ratio TSH Urine Color Yellow Urine Appearance Clear Urine pH 6.5 Ur Specific [place] 1.011 Urine Protein Negative Urine Glucose (UA) Negative Urine Ketones Negative Urine Blood 2+ H Urine Nitrite Negative Urine Bilirubin Negative Urine Urobilinogen Negative Ur Leukocyte Esterase Negative Urine WBC (Auto) 1-5 Urine RBC (Auto) 5-10 H U Hyaline Cast (Auto) 1-5 U Epithel Cells (Auto) 0-5 Urine Bacteria (Auto) Negative Salicylates Urine Opiates Screen Neg Ur Methadone, Qual Neg Acetaminophen Urine Barbiturates Neg Ur Phencyclidine (PCP) Neg U Amphetamin/Meth Scrn Neg MDMA (Ecstasy) Screen Neg U Benzodiazepines Scrn Neg Ur Cocaine Metabolite Neg U Marijuana (THC) Screen Neg Ethyl Alcohol mg/dL < 3.0 COVID-19 Eval Order SARS-CoV-2 (PCR) Influenza Type A (PCR) Influenza Type B (PCR) RSV (RT-PCR) 12/03/20 12/03/20 12/05/20 17:26 17:26 08:42 WBC RBC Hgb Hct MCV MCH MCHC RDW Std Deviation RDW Coeff of Nicolas Plt Count MPV Immature Gran % (Auto) Neut % (Auto) Lymph % (Auto) Keith % (Auto) Eos % (Auto) Baso % (Auto) Neut # (Auto) Lymph # (Auto) Keith # (Auto) Eos # (Auto) Baso # (Auto) Immature Gran # (Auto) Sodium Potassium Chloride Carbon Dioxide Anion Gap BUN Creatinine Est Cr Clr Drug Dosing Est GFR ( Amer) Est GFR (Non-Af Amer) BUN/Creatinine Ratio Glucose Fasting Glucose 87 Calcium Total Bilirubin AST ALT Alkaline Phosphatase Total Protein Albumin Globulin Albumin/Globulin Ratio Triglycerides 39 Cholesterol 75 LDL Cholesterol, Calc 36 VLDL Cholesterol, Calc 8 HDL Cholesterol 31 Cholesterol/HDL Ratio 2 TSH Urine Color Urine Appearance Urine pH Ur Specific [place] Urine Protein Urine Glucose (UA) Urine Ketones Urine Blood Urine Nitrite Urine Bilirubin Urine Urobilinogen Ur Leukocyte Esterase Urine WBC (Auto) Urine RBC (Auto) U Hyaline Cast (Auto) U Epithel Cells (Auto) Urine Bacteria (Auto) Salicylates Urine Opiates Screen Ur Methadone, Qual Acetaminophen Urine Barbiturates Ur Phencyclidine (PCP) U Amphetamin/Meth Scrn MDMA (Ecstasy) Screen U Benzodiazepines Scrn Ur Cocaine Metabolite U Marijuana (THC) Screen Ethyl Alcohol mg/dL COVID-19 Eval Order CovFluRsv at [facility] SARS-CoV-2 (PCR) NEGATIVE Influenza Type A (PCR) Negative Influenza Type B (PCR) Negative RSV (RT-PCR) Negative Hospital Course (1) Psychosis: 12/04 -patient reports auditory hallucinations of 6-7 voices that have been going on for the past couple of months, beginning during a time when he relapsed and was using meth, heroin, fentanyl, MDMA, and bath salts. He also reports experiencing auditory hallucinations in the past when using. Differential includes substance-induced psychosis, primary thought disorder, unidentified organic cause, or psychotic mood disorder. If his reports of the timeline of his substance use are accurate, and substance-induced psychosis can be ruled out as he denies using drugs since September. He is not necessarily a reliable historian, however, which makes diagnosis a challenge. -Previous trial of quetiapine which the patient self discontinued quickly due to feeling more tired. He did respond positively to a dose of Haldol 5 mg last night, and will continue this as needed. He had been discussing a trial of aripiprazole with his outpatient clinician, and after review of risks, benefits, and side effects, agreed to initiate that here. Will start 5 mg daily and order fasting labs for baseline on an atypical antipsychotic for tomorrow. -Reviewed outpatient records, will contact Carolina Wilson NP to coordinate care. -Reality testing, address substance use disorders as below, as use is clearly contributing to psychotic symptoms. 12/05 - Pt agreeable with titrating aripiprazole to 10mg qAM starting tomorrow morning. Feeling it has not yet made a difference for reported auditory hallucinations. Pt now admitting that the voices did start while he was still abusing substances, but have persisted despite his reports of sobriety for the past few months. - Fasting glucose and lipid panel reviewed - all values WNL - Coordinate with outpatient psychiatric providers, determine additional opportunities for outpatient supports. - Encourage patient to attend group programming 12/06 - Aripiprazole 10mg qAM. Pt admits to ongoing auditory hallucinations, but states they are mildly improved - Denying SI/HI or safety concerns - Meeting scheduled with onsite case manager for 12/10 - Continue to coordinate aftercare supports with outpatient providers. 12/07 - Pt agreed to titrate aripiprazole to 15mg starting tomorrow morning. Ongoing auditory hallucinations, but volume reduced from 6/10 (on admission) to 2-3/10 within the past few days. - Denying SI/HI - Consider family meeting with mother 12/08 -Abilify increased to 15 mg today, continue titration to effective dose. Auditory hallucinations of voices are improving but still present and impairing functioning. Thought blocking and depression still noted on exam. 12/09 -Increase Abilify to 20 mg daily for tomorrow. 12/10 - Continue aripiprazole 20mg qAM. Adding duloxetine 20mg qAM with plan for slow titration as tolerated given bipolar disorder diagnosis - Met with onsite case manager this morning 12/11 - Continue medications as above - Solidify outpatient referrals, patient considering individual CBT therapist for mental health in addition to his substance abuse treatment - Pt denies SI, hallucinations are ongoing but at a more manageable volume per patient 12/12 - Pt agreeable with titration of aripiprazole as he reports ongoing struggles and frustration with auditory hallucinations. Wanting to move to HS dosing due to reports of daytime sedation. Will supplement with 10mg dose this evening, and then to 30mg qHS moving forward. - Continue duloxetine 20mg qAM - Continue to coordinate outpatient supports and resources 12/13 - Continue current medication regimen, aripiprazole titrated yesterday - pt continues to endorse auditory hallucinations, but volume is reduced 12/14 -Aripiprazole 30 mg daily reportedly well-tolerated without reports of adverse effects. -Duloxetine to be increased to a dose of 30 mg in the morning at discharge. -Aftercare arrangements are finalized. (2) Bipolar II disorder: 12/04 -patient reports hypomanic episodes, unclear if these have occurred during periods of sobriety, and have also occurred during SNRI trials. Avoid unopposed antidepressants. -Trial of aripiprazole as above. 12/06 - Titrating aripiprazole as above 12/08 -continue to titrate aripiprazole, continue nortriptyline and gabapentin. 12/09 - Remains depressed, consider a trial of an antidepressant, his mood remains low. He is on nortriptyline, so would need to be mindful of drug drug interactions. Previous medication trials include an SSRI, to SNRIs, and bupropion. Could try mirtazapine, or another SSRI. 12/10 - Continue aripiprazole 20mg daily. Discussed options for antidepressant medications, patient requesting retrial of duloxetine. Discussed starting at low dose with very slow titration given bipolar diagnosis. - Met with onsite case manager this morning 12/11 - Continue aripiprazole 20mg and duloxetine 20mg daily - consider titration of medications as tolerated/indicated 12/12 - Pt agreed to titration of aripiprazole, outlined above 12/13 - Continue medications as above 12/14 -Although the patient carries a diagnosis of bipolar disorder, his psychotic features appear to be independent of any related mood alterations. The patient acknowledges that he had been abusing substantial quantities of methamphetamine and heroin following the relapse, and he suspects, as we do, that the psychotic features evident at admission and during the continued stay were a function of his IV drug use of amphetamines and opioids. (3) Opiate abuse, continuous: 12/04 -patient reports using IV heroin and fentanyl most recently in September, currently on Suboxone, continue home dose here and coordinate with outpatient substance abuse treatment providers. May benefit from more robust substance abuse treatment, including NA and AA. 12/06 - Follow-up appointment with Dr. Fox scheduled for Thursday12/17/20 at 8:15 - It was reported that patient has a 1-week supply of Suboxone still at his pharmacy that can be picked up on discharge and used until his follow-up appointment. 12/09 -patient would benefit from participation in/completion of a 12-step program such as NA or AA. We will continue to explore this with him, and provide him with a list of local meetings. 12/11 - Pt open to NA/AA meetings, has also been scheduled for IOP through [facility] 12/14 -The patient acknowledges more recent use of opioids and methamphetamine than originally reported. He notes that his use was not detected because he was not tested recently. He admits that many of his paranoid thoughts prior to admission had to do with his fear that people he knew would "turn a man" to the police and that he would be arrested, drug tested, and sent back to retirement. He even described an episode in which he stood outside in his front yard for approximately 2 hours with his head bowed in his hands in the air because he was convinced that a SWAT team was about to arrive to arrest him. -Today, the patient talked about the difficulties he has had with overcoming a ddiction. He describes a great deal of shame, particularly within the context of the fact that he has overdosed and on one occasion nearly at his mother's home. He states, "she always stands by me, and it seems like I am always letting her down." -Patient clearly recognizes the girard that methamphetamine and opioid abuse has extracted. He is strongly motivated to recovery and has been referred for dual diagnosis treatment. We are also actively encouraging him to participate in Narcotics Anonymous or similar self-help groups. (4) Methamphetamine abuse: As above 12/14 -Although the patient acknowledges that he was using "large amounts" of methamphetamine prior to admission, he notes that his drug of choice has always been opioids. He talks today about how he became addicted to opioids while in college by crushing and snorting opioid-based pain medications. The patient states that that he has a very strong memory of the first time he became "high" by snorting opioids. He notes that that benefit is long gone, but that he continues to periodically relapse in part because of the hope that he will be able to rekindle that early experience, even though he knows better. (5) IVDU (intravenous drug user): Follow-up with PCP after discharge for HIV testing Mental Health & Subst Abuse Tx Psychiatrist Name of Psychiatrist: NATAN Doyle Psychiatrist's Date of Appointment with Psychiatrist: 12/17/20 Time of Appointment with Psychiatrist: 1:30pm Psychiatric Appointment Comment: Telehealth Therapist Name of Therapist: Marco Hernández Therapist's Therapy Appointment Comment: She will schedule with you at the clinic on Thursday Clinical Business Manager Name of Clinical Business Manager: [facility] Phone Number for Clinical Business Manager: [phone] Date of Appointment with Clinical Business Manager: 12/18/20 Time of Appointment with Clinical Business Manager: 12:30 p.m. Case Management Appointment Comment: Telehealth Post Discharge Appointments Primary Care Physician Name Of Family Doctor: Ant Fox [facility] Date of Appointment with PCP: 12/18/20 Time of Appointment with PCP: 3:00 p.m. (check-in at 2:45 p.m.) Provider Appointment Comment: [address] [place] [id number] Neurologist Name of Neurologist: Lisbet Rodney Neurologist's Date of Appointment with Neurologist: 03/08/21 Time of Appointment with Neurologist: 1:40pm Specialist Name of Specialist: Dr. Fox Phone Number for Specialist: [phone] Date of Appointment with Specialist: 12/17/20 Time of Appointment with Specialist: 8:15am Specialty Appointment Comment: Rebecca cates [facility] called pt. pharmacy to ensure pt. has supply of Suboxone Smoking Cessation Counseling Tobacco Cessation Medication Prescribed at Discharge: Offered & Prescribed Contact Information Discharge Discharge Address: [address] [place] [id number] Discharge Plan Discharge Items Patient Disposition: Home - Self-Care Reason For Visit: PSYCHOSIS Discharge Diagnosis: Unspecified Psychosis Activity: Resume your previous activity Non-emergency contact: Primary Care Provider, Psychiatrist and Therapist Call non-emergency contact if: you have any medication questions and your symptoms worsen Follow-up/Referrals: Amauri Fox MD [Primary Care Provider] - Diet: Regular Addtl Attending Provider Instructions: SPECIAL CARE INSTRUCTIONS: 1. Follow through with your scheduled aftercare appointments. If unable to keep an appointment, please call to reschedule. 2. Take your medication only as prescribed. Medication should not be changed or stopped without the approval of your doctor. In the event of worsening symptoms or concerns about side effects, contact your doctor immediately. 3. Utilize new healthy coping skills, anger management skills, and stress management skills learned during your hospitalization. Journal feelings and process them with a support person. Identify stressors or situations that may result in relapse, deterioration or inappropriate behaviors and develop a plan to deal with those issues. 4. If your coping skills are ineffective and you are in crisis, contact your outpatient providers for direction. If unable to reach your providers, please call the [facility] CRISIS LINE AT , go to the [facility] walk-in center at [address], [address], [place], or go to the closest Emergency Room. 5. Avoid alcohol and un-prescribed drugs. 6. You have been provided with the Mental Health Advance Directives Pamphlet for your review. AFTERCARE APPOINTMENTS: * Please call your insurance company prior to your scheduled appointment to confirm your aftercare providers are covered. Take your insurance information to your appointments. WHO TO CALL AND WHEN: Medical Emergencies: For questions or emergencies related to your hospital stay, please contact the Inpatient Behavioral Health Unit at [phone]. A histologic technician is on-call 09/03 for the Behavioral Health Unit for emergencies At any time you feel your situation is an emergency, you may also call 911 immediately. Pending Studies at Discharge: No Stand-Alone Forms: My [facility] Fot[employer], Smoking Cessation Medications and DC Order Prescriptions: New nicotine (polacrilex) [Nicorette] 2 mg Gum 1 piece of gum MT PRN PRN (Reason: Nicotine craving) Qty: 110 RF: 0 nicotine [Nicoderm CQ] 21 mg/24 hr Patch 24 Hour 21 mg transdermal QAM Qty: 14 RF: 0 aripiprazole [Abilify] 15 mg Tablet 30 mg PO HS Qty: 60 RF: 0 duloxetine 30 mg capsule,delayed release(DR/EC) 30 mg PO DAILY Qty: 30 RF: 0 Continued aspirin 81 mg Tablet,Delayed Release (Dr/Ec) 81 mg PO QAM RF: 0 lisinopril 30 mg Tablet 30 mg PO QAM RF: 0 nortriptyline 50 mg Capsule 50 mg PO BID RF: 0 fluticasone propion-salmeterol [Advair Diskus] 500-50 mcg/dose Blister With Device 1 inh INHALATION BID RF: 0 albuterol sulfate 90 mcg/actuation Hfa Aerosol Inhaler 1 inh INHALATION QID PRN (Reason: sob) RF: 0 clonidine HCl 0.1 mg tablet 0.1 mg PO BID RF: 0 sumatriptan succinate 50 mg tablet 50 mg PO DIRECTED PRN (Reason: Headache) RF: 0 lansoprazole 30 mg capsule,delayed release(DR/EC) 30 mg PO QAM RF: 0 furosemide 20 mg tablet 20 mg PO DAILY PRN (Reason: Fluid Retention) RF: 0 topiramate [Topamax] 50 mg tablet 50 mg PO BID RF: 0 quetiapine [Seroquel] 50 mg Tablet 50 mg PO HS RF: 0 buprenorphine-naloxone [Suboxone] 4-1 mg Film 1 film SUBLINGUAL DAILY RF: 0 Discontinued gabapentin 300 mg capsule See Rx Instructions .ROUTE .COMPLEX RF: 0 Discharge Orders: Discharge Order (Routine); Ordered 12/14/20 Ordered By: Matt Holguin Admission Data Admit Date/Time: 12/03/20 19:17 Attending Provider: Ivory Baez Admit Provider: Jigna Ontiveros Primary Care Provider: Amauri Fox Other Interventions: MORRISY Interdisciplinary Discharge Planning Last Done: 12/13/20 08:52 C[place] [address] D/C day mgmt > 30 min Patient Type Established Exam Expanded Problem Focused Medical Decision Making Moderate Complexity Diagnoses Psychosis F29 Bipolar II disorder F31.81 Opiate abuse, continuous F11.10 Methamphetamine abuse F15.10 IVDU (intravenous drug user) F19.90 Time Spent (min) 60
== END 2020-12-14 15:20 | disposition home or self-care (01) | DRG 885 ==
LOC: ED 14:56 → 3S 19:17 → ED 19:56 → 3S 12-07 16:38